=== PATIENT | male | born 1945 | race Asian ===

== ENCOUNTER 2022-04-26 13:05 | Outpatient (REF) | payer OTHER, SELFPAY ==
[2022-04-26 13:39] LABS: Basophils Percent Auto 0.5 % (0-2); Eosinophils Percent Auto 0.5 % (0-4); Hematocrit 43.5 % (42.0-52.0); Hemoglobin 14.7 g/dl (14.0-18.0); Imm Gran Abs Auto 0.02 X10*3/uL (0.00-0.03); Imm Gran Pct Auto 0.2 % (0.0-0.4); Lymphocytes Absolute Auto 0.8 X10*3/uL (1.2-4.9); Lymphocytes Percent Auto 9.9 % (20-40); MANUAL DIFF FLAG NO; Mean Corpuscular HGB Conc 33.8 g/dl (31.0-36.0); Mean Corpuscular Hemoglobin 32.5 pg (27.0-33.0); Mean Corpuscular Volume 96.2 fL (80.0-98.0); Mean Platelet Volume 9.9 fL (9.4-12.4); Monocytes Absolute Auto 0.7 X10*3/uL (0.1-1.2); Monocytes Percent Auto 8.3 % (2-11); Neutrophils Absolute Auto 6.7 x10*3/uL (2.0-8.3); Neutrophils Percent Auto 80.6 % (45-73); Platelet Count 226 X10*3/uL (160-400); Red Blood Count 4.52 X10*6/uL (4.60-5.80); Red Cell Distribution Width 12.2 % (11.0-16.0); White Blood Count 8.4 X10*3/uL (4.8-10.8)
[2022-04-26 14:30] LABS: Alanine Aminotransferase 11 U/L (0-40); Albumin Level 4.3 g/dL (3.5-5.0); Alkaline Phosphatase 61 U/L (39-117); Anion Gap 15 (12-20); Aspartate Amino Transferase 16 U/L (5-37); Bilirubin Total 1.2 mg/dL (0.0-1.0); Blood Urea Nitrogen 16 mg/dL (9-16); Calcium 9.6 mg/dL (8.4-10.2); Carbon Dioxide 24 mmol/L (22-29); Chloride 110 mmol/L (96-108); Cholesterol 181 mg/dL; Estimated Glomerular Filt Rate > 60; Glucose Random 86 mg/dL (60-115); Potassium 4.1 mmol/L (3.3-5.1); Sodium 145 mmol/L (135-145); Total Protein 7.2 g/dL (6.5-8.0)
[2022-04-26 15:08] LABS: Prostate Specific Antigen 6.16 ng/mL (<0.05-4.0)
== END 2022-04-26 13:06 | disposition home or self-care (01) ==
LOC: HO.LAB 13:05
PROVIDERS: PCP Internal Medicine; Visit Provider Internal Medicine
DX: Z12.5 Encounter for screening for malignant neoplasm of prostate (principal); I49.1 Atrial premature depolarization; N40.0 Benign prostatic hyperplasia without lower urinary tract symptoms; R35.1 Nocturia
CPT/HCPCS: 36415; 80053; 82465; 84153; 85025

== ENCOUNTER → 2022-07-31 13:22 | Outpatient (BNVA) | payer OTHER, SELFPAY | PROVIDERS: PCP Internal Medicine; Visit Provider Urology | DX: R97.20 Elevated prostate specific antigen [PSA] (principal); N40.1 Benign prostatic hyperplasia with lower urinary tract symptoms; R39.15 Urgency of urination; R35.1 Nocturia | CPT/HCPCS: 99202 ==

== ENCOUNTER 2022-12-17 13:32 | Day surgery (SDC) | payer OTHER, SELFPAY ==
[2022-12-17 07:14] VITALS: BMI 19.3
[2022-12-17 13:39] VITALS: BP 105/72; PULSE 99; RESP 99; TEMP 36.1; O2SAT 98
--- NOTE | 2022-12-17 13:52 | PC.NURSE ---
no meds taken today
[2022-12-17] MEDS: Lactated Ringers 1,000 ML 50 ML IVCONT (14:04)
--- NOTE | 2022-12-17 14:28 | P.CONAN_ITS ---
FORMERLY [facility] Active Problems Active Problems: All Active Problems (Updated 12/14/22 @ 12:30 by Gladys Addison RN) Elevated PSA (Acute) BPH loc w urin obs/LUTS (Acute) Nocturia associated with benign prostatic hyperplasia (Acute) Urinary urgency (Acute) Past Medical History Medical History (Updated 12/14/22 @ 12:30 by Gladys Addison RN) Enlarged prostate Family History Family history of problems with anesthesia: No Surgical History Surgical History (Updated 12/14/22 @ 12:30 by Gladys Addison RN) H/O colonoscopy History of Problems with Anesthesia: No Social History Social History Patient Tobacco Use Status: Never used Tobacco Advance Directives: No Advance Directives Information Provided: Yes Meds Allergies Allergy/AdvReac Type Severity Reaction Status Date / Time pollen extracts Allergy Unknown Verified 12/14/22 12:32 Active Medications: Current Medications Lactated Ringer's (Lr) 1,000 mls @ 50 mls/hr IVCONT .Q20H HORACIO Last Admin: 12/17/22 14:04 Dose: 50 mls/hr Lactated Ringer's (Lr) 1,000 mls @ 50 mls/hr IVCONT .Q20H HORACIO Sodium Biphosphate/Sodium Phosphate (Sodium Phosphate,Davidson-Dibasic 133 Ml Enema) 133 ml CO ONCE PRN PRN Reason: Poor Colonoscopy Prep Results Exam Exam Date and Time: December 17, 2022 1428 Height,Weight and Vital Signs: Height 5 ft 6 in Weight 54.431 kg Last Vital Signs Temp 97 F 12/17/22 13:39 Pulse 99 12/17/22 13:39 Resp 99 H 12/17/22 13:39 BP 105/72 12/17/22 13:39 Pulse Ox 98 12/17/22 13:39 O2 Del Method Room Air 12/17/22 13:39 Airway Mallampati Class: II (cap front tooth, gums look in [facility]) TM Dist: >3cm Neck ROM: Full Heart: rrr Lungs: cta Assessment and Plan Assessment Anesthesia Assessment: Anesthesia Plan Discussed and Chart Reviewed Final Anesthetic Review Family History of Problems with Anesthesia: No History of Problems with Anesthesia: No NPO: Yes ASA Class: II Final Preanesthetic Review: No Changes in Pt Med Stat, Meds/Allgs Chart Reviewed and Consent Obtained/Reviewed Patient Risk: Intermediate Procedure Risk: Intermediate Anesthetic Plan Anesthetic Plan: MAC: Disposition: Standard PACU
[2022-12-17 16:20] VITALS: BP 91/62; PULSE 85; RESP 14; TEMP 37.1; O2SAT 98
--- NOTE | 2022-12-17 16:20 | P.BOP_ITS ---
Brief Operative Note Date of Service: 12/17/22 Pre-op diagnosis: Screening Post-op diagnosis: other (Colon polyp) Procedure: Colonoscopy to the cecum and TI with hot snare polypectomy x 1 with placement of 2 Resolution clips Surgeon: Carlos Dykes Anesthesia: MAC Was an Ceramics Instructor used for this Procedure?: No Estimated blood loss (mL): 0 Pathology: other (A. Polyp at 30cm) Condition: stable Disposition: PACU
[2022-12-17 16:35] VITALS: BP 103/61; PULSE 76; RESP 18; TEMP 36.9; O2SAT 100
--- NOTE | 2022-12-18 02:00 | OP_ITS ---
DATE OF SERVICE: 12/17/2022 SURGEON: Carlos Dykes MD INDICATIONS: The patient presents for followup of colorectal cancer screening and prior history of colon polyps. Full consent has been obtained from him for this, including risks of bleeding and perforation. PREOPERATIVE DIAGNOSIS: Colorectal cancer screening and personal history of colon polyps. POSTOPERATIVE DIAGNOSIS: Colorectal cancer screening and personal history of colon polyps, colon polyp, diverticulosis and internal hemorrhoids. PROCEDURE PERFORMED: Colonoscopy of the cecum and terminal ileum with hot snare polypectomy and placement of two Resolution clips. ESTIMATED BLOOD LOSS: COMPLICATIONS: ANESTHESIA: Medication Used: Monitored anesthesia care. ASSISTANTS: SPECIMENS: DESCRIPTION OF PROCEDURE: The patient was placed in the left lateral decubitus position. The digital rectal exam revealed no abnormalities. The [employer] video pediatric colonoscope was entered into the rectum and advanced easily to the cecum. Once in the cecum, after copious irrigation and suctioning, I was able to visualize a normal-appearing cecal pouch with appendiceal orifice and a normal-appearing ileocecal valve. The terminal ileum was cannulated and appeared normal. The scope was withdrawn back in the colon. The entire cecum and the ileocecal valve appeared normal. The scope was then slowly withdrawn, assessing all mucosal surfaces carefully. For the most part, preparation was very good, although parts did need a lot of irrigation and suctioning. Ultimately, the preparation became very good, as did the visualization. At 30 cm, there was an approximately 1.5 cm polyp on a short stalk, which was snared with a hot snare and removed. The polyp was withdrawn on the tip of the scope. The scope was readvanced back to the polypectomy site at 30 cm. The polypectomy site appeared to be clean, without any sign of residual polyp nor bleeding, but I did place two Resolution clips on it with good deployment and good hemostasis. I did not visualize any other polyps, colitis nor angiodysplasia. There was a mild amount of sigmoid diverticulosis. In the rectum, scope was retroflexed, visualizing internal hemorrhoids, but no other pathology. The rectal mucosa appeared normal. Scope was straightened and withdrawn from the patient. He tolerated the procedure well and was returned to the recovery area in stable condition. IMPRESSION: 1. Colon polyp. 2. Diverticulosis. 3. Internal hemorrhoids. PLAN: The results of the pathology will be checked. I would recommend a repeat colonoscopy in 3 years for further screening and surveillance. He was advised not to use any aspirin or NSAIDS for 2 weeks. This has been discussed with his significant other. MD ARIANA Galarza/TU / [id number]
== END 2022-12-17 16:44 | disposition home or self-care (01) ==
PROVIDERS: PCP Internal Medicine; Visit Provider Internal Medicine
PROC: 0DJD8ZZ Inspection of Lower Intestinal Tract, Via Natural or Artificial Opening Endoscopic (ICD-10-PCS; CPT 45378; principal; 2022-12-17 14:40)
DX: Z12.11 Encounter for screening for malignant neoplasm of colon (principal); Z86.010 Personal history of colon polyps; D12.5 Benign neoplasm of sigmoid colon; K57.30 Diverticulosis of large intestine without perforation or abscess without bleeding; K64.8 Other hemorrhoids; N40.0 Benign prostatic hyperplasia without lower urinary tract symptoms; Z79.899 Other long term (current) drug therapy; Z91.048 Other nonmedicinal substance allergy status
CPT/HCPCS: 45385; 88305; J2370

== ENCOUNTER 2023-01-31 12:19 | Outpatient (REF) | payer OTHER, SELFPAY ==
[2023-01-31 14:58] LABS: PSA,Total (Free>4and<10) 5.91 ng/mL (0.00-4.00)
[2023-02-01 10:33] LABS: Free Prostate Spec Ag 1.5 ng/mL; Percent Free Prostate Spec Ag 25 % (calc) (>25); Prostate Specific Ag Total 5.9 ng/mL (< OR = 4.0)
== END 2023-01-31 12:20 | disposition home or self-care (01) ==
LOC: HO.LAB 12:19
PROVIDERS: Visit Provider Urology
DX: Z12.5 Encounter for screening for malignant neoplasm of prostate (principal); R97.20 Elevated prostate specific antigen [PSA]
CPT/HCPCS: 36415; 84153; 84154

== ENCOUNTER → 2023-02-06 14:15 | Outpatient (BNVA) | payer OTHER, SELFPAY | PROVIDERS: PCP Internal Medicine; Visit Provider Urology | DX: R97.20 Elevated prostate specific antigen [PSA] (principal); N40.1 Benign prostatic hyperplasia with lower urinary tract symptoms; N13.8 Other obstructive and reflux uropathy; R35.1 Nocturia; R39.12 Poor urinary stream | CPT/HCPCS: 99212 ==

== ENCOUNTER 2023-04-08 12:38 | Outpatient (REF) | payer OTHER, SELFPAY ==
[2023-04-08 13:17] LABS: MANUAL DIFF FLAG NO
[2023-04-08 13:23] LABS: Appearance Urine Clear; Color Urine Yellow; Glucose Urine UA Negative (Negative); Leukocyte Esterase Urine Negative (Negative); Nitrite Urine Negative (Negative); Urine Blood Negative (Negative); Urine Ketones Negative (Negative); Urine Protein Negative (Neg-Trace)
[2023-04-08 13:25] LABS: Basophils Percent Auto 0.5 % (0-2); Eosinophils Absolute Auto 0.1 X10*3/uL (0.0-0.4); Eosinophils Percent Auto 0.8 % (0-4); Hemoglobin 12.9 g/dl (14.0-18.0); Imm Gran Abs Auto 0.01 X10*3/uL (0.00-0.03); Imm Gran Pct Auto 0.2 % (0.0-0.4); Lymphocytes Absolute Auto 0.8 X10*3/uL (1.2-4.9); Lymphocytes Percent Auto 14.2 % (20-40); Mean Corpuscular HGB Conc 32.3 g/dl (31.0-36.0); Mean Corpuscular Hemoglobin 31.5 pg (27.0-33.0); Mean Corpuscular Volume 97.6 fL (80.0-98.0); Mean Platelet Volume 10.9 fL (9.4-12.4); Monocytes Absolute Auto 0.4 X10*3/uL (0.1-1.2); Monocytes Percent Auto 6.7 % (2-11); Neutrophils Absolute Auto 4.6 x10*3/uL (2.0-8.3); Neutrophils Percent Auto 77.6 % (45-73); Platelet Count 224 X10*3/uL (160-400); Red Cell Distribution Width 12.2 % (11.0-16.0); White Blood Count 5.9 X10*3/uL (4.8-10.8)
[2023-04-08 13:53] LABS: Alanine Aminotransferase 11 U/L (0-40); Albumin Level 4.2 g/dL (3.5-5.0); Alkaline Phosphatase 60 U/L (39-117); Amylase 80 U/L (28-100); Anion Gap 15 (12-20); Aspartate Amino Transferase 16 U/L (5-37); Bilirubin Total 0.8 mg/dL (0.0-1.0); Blood Urea Nitrogen 28 mg/dL (9-16); C Reactive Protein < 0.10 mg/dL (< or = 0.50); Calcium 9.9 mg/dL (8.4-10.2); Carbon Dioxide 23 mmol/L (22-29); Chloride 112 mmol/L (96-108); Cholesterol 167 mg/dL; Estimated Glomerular Filt Rate 36; Glucose Random 87 mg/dL (60-115); Potassium 4.7 mmol/L (3.3-5.1); Sodium 145 mmol/L (135-145); Total Protein 7.6 g/dL (6.5-8.0)
[2023-04-08 14:03] LABS: Vitamin B12 450 pg/mL (200-900)
[2023-04-08 14:22] LABS: Erythrocyte Sedimentation Rate 18 MM/HR (0-15)
[2023-04-08 14:55] LABS: Vitamin D 25-OH Total 25.6 ng/mL (>30)
== END 2023-04-08 12:39 | disposition home or self-care (01) ==
LOC: HO.10HDL 12:38
PROVIDERS: Visit Provider Internal Medicine
DX: R10.9 Unspecified abdominal pain (principal); M85.80 Other specified disorders of bone density and structure, unspecified site; N40.0 Benign prostatic hyperplasia without lower urinary tract symptoms; E53.8 Deficiency of other specified B group vitamins; R68.84 Jaw pain
CPT/HCPCS: 36415; 80053; 81003; 82150; 82306; 82465; 82607; 85025; 85652; 86140

== ENCOUNTER 2023-04-12 13:19 | Outpatient (REF) | payer OTHER, SELFPAY ==
--- NOTE | ~2023-04-12 | MM_ITS ---
EXAMINATION: BONE DENSITOMETRY CLINICAL INDICATION: Screening. COMPARISON: This is the patient's baseline examination. TECHNIQUE: Using a Nightpro DXA System (software version: 13.1) manufactured by [employer], dual-energy x-ray absorptiometry was performed of the lumbar spine and left hip. The images are of good technical quality. Summary results are attached. FINDINGS: AP SPINE L1-L4: BMD 1.164 g/cm2, Z-score 0.4, T-score -0.5, normal. LEFT FEMUR, NECK: BMD 0.931 g/cm2, Z-score 0.5, T-score -1.1, osteopenia. LEFT FEMUR, TOTAL: BMD 1.068 g/cm2, Z-score 0.8, T-score -0.2, normal. IDENTIFIED RISK FACTORS: Low calcium intake. HISTORY OF FRACTURE: None listed. MEDICATIONS: None listed. MM/XR DEXA axial skeleton IMPRESSION: 1. DIAGNOSIS: Osteopenia based on the lowest T-score value of -1.1 in the femoral neck applying World Health Organization criteria. 2. 10-YEAR FRACTURE RISK PREDICTION, FRAX: Major osteoporotic fracture (clinical spine, forearm, hip or shoulder) 3.5%. Hip fracture 0.9%. 3. Treatment Recommendations: NOF guidelines recommend consideration for treatment in postmenopausal women and men age 50 and older presenting with the following: -A hip or vertebral (clinical or morphometric) fracture. -T-score less than or equal to -2.5 at the femoral neck or spine after appropriate evaluation to exclude secondary causes. -Low bone mass at the hip or spine and a 10-year fracture probability by FRAX of greater than or equal to 3% for hip fracture or greater than or equal to 20% for major osteoporotic fracture based on the [place] adapted WHO algorithm. 4. Other Recommendations: All treatment decisions require clinical judgment and consideration of individual patient factors, including patient preferences, comorbidities, previous drug use, risk factors not captured in the FRAX model (e.g. frailty, falls, vitamin D deficiency, increased bone turnover, interval significant decline in bone density) and possible under or overestimation of fracture risk by FRAX. Additional medical evaluation for secondary cause of low bone mineral density may be appropriate. FUTURE SCAN RECOMMENDATION: People with diagnosed cases of osteoporosis or at high risk for fracture should have regular bone mineral density tests. For patients eligible for Medicare, routine testing is allowed once every 2 years. The testing frequency can be increased to one year for patients who have rapidly progressing disease, those who are receiving or discontinuing medical therapy to restore bone mass, or have additional risk factors.
== END 2023-04-12 13:20 | disposition home or self-care (01) ==
LOC: HO.MAMMO 13:19
PROVIDERS: Visit Provider Internal Medicine
DX: Z13.820 Encounter for screening for osteoporosis (principal); M85.852 Other specified disorders of bone density and structure, left thigh
CPT/HCPCS: 77080

== ENCOUNTER 2023-04-26 14:26 | Outpatient (REF) | payer OTHER, SELFPAY ==
--- NOTE | ~2023-04-26 | CT_ITS ---
EXAMINATION: CT ABDOMEN AND PELVIS WITHOUT CONTRAST CLINICAL INFORMATION: Right lower quadrant abdominal pain. COMPARISON: None available. TECHNIQUE: Multidetector volumetric imaging was performed from the superior aspect of the liver through the pubic symphysis. Sagittal and coronal reformatted images were obtained on the technologist's workstation. This CT examination was performed using dose optimization techniques as appropriate, variously including the following: *Automated exposure control *Adjustment of mA and/or kV according to patient size (this includes techniques or standardized protocols for targeted exams where dose is matched to indication/reason for exam; i.e. extremities or head) *Use of iterative reconstruction technique. DLP: 229 mGy-cm FINDINGS: LUNG BASES: The visualized lung bases are unremarkable. Linear scarring is present at the left lung base. No nodules, consolidations or pleural effusions. LIVER, GALLBLADDER, AND BILIARY TREE: The liver is normal in size, shape, and attenuation. No focal hepatic lesion or biliary ductal dilatation is present. The gallbladder is unremarkable with no evidence of radiopaque gallstones, gallbladder wall thickening, or obvious pericholecystic inflammatory changes. PANCREAS: Unremarkable. SPLEEN: Unremarkable. ADRENAL GLANDS: Unremarkable. KIDNEYS AND URETERS: There is bilateral hydronephrosis seen. Proximal ureters are dilated but the distal ureters are not well seen. There is a complex cyst present at the upper pole of the left kidney measuring just under 6 cm in size. There is some irregular calcification associated with this along with one area of slight increased density. I would classify this as Bosniak class IIF. No other renal masses. There is some subtle punctate hyperattenuating areas seen in the kidneys bilaterally in the medullary regions which may represent calculi (for example, in the right kidney 5:54). BLADDER: The bladder wall is mildly thickened and trabeculated with some tiny diverticula. GASTROINTESTINAL TRACT: The small and large bowel are unremarkable. The appendix is unremarkable. ABDOMINAL WALL: No significant hernia is appreciated. LYMPH NODES: Normal. VASCULAR: Unremarkable. PELVIC VISCERA: There is marked prostatomegaly with the prostate measuring 6.5 x 5.7 x 5.9 cm for a volume of about 115 mL. Seminal vesicles appear normal. OSSEOUS STRUCTURES: Unremarkable. CT/CT abdomen pelvis wo IV con IMPRESSION: 1. Marked prostatomegaly with bladder wall thickening and trabeculated bladder suggesting bladder outlet obstruction. 2. There is bilateral hydronephrosis. The distal ureters are not well seen. Complex Bosniak class IIF left upper pole renal cyst. Would recommend a dedicated pre and postcontrast renal CT for further evaluation. In addition, I would get delayed postcontrast imaging for opacification of the renal collecting system. 3. Possible punctate bilateral renal calculi. 4. Normal appendix. Fleischner guidelines were followed.
== END 2023-04-26 14:27 | disposition home or self-care (01) ==
LOC: HO.CT 14:26
PROVIDERS: PCP Internal Medicine; Visit Provider Internal Medicine
DX: R10.31 Right lower quadrant pain (principal)
CPT/HCPCS: 74176

== ENCOUNTER 2023-04-26 15:05 | Emergency (ER) | payer OTHER, SELFPAY ==
--- NOTE | ~2023-04-26 | CT_ITS ---
EXAMINATION: CT SOFT TISSUE NECK WITHOUT CONTRAST CLINICAL INFORMATION: Dysphagia COMPARISON: None. TECHNIQUE: Noncontrast helical imaging was performed in the axial plane with generation of coronal and sagittal reformatted images. This CT examination was performed using dose optimization techniques as appropriate, variously including the following: *Automated exposure control. *Adjustment of mA and/or kV according to patient size (this includes techniques or standardized protocols for targeted exams where dose is matched to indication/reason for exam; i.e. extremities or head). *Use of iterative reconstruction technique. DLP: 319 mGycm FINDINGS: The fat planes of the skull base and soft tissues of the nasopharynx are unremarkable. Mild ethmoid air cell mucosal thickening. No mastoid effusion. The temporomandibular joints are normal. Carious posterior right mandibular molar with significant periodontal disease and osseous resorption of the surrounding maxillary alveolus. Attritional changes of the bilateral maxillary alveolar ridge related to multiple missing teeth. Calcified right palatine tonsilloliths. Dental streak artifact obscures assessment of portions of the oral cavity and oropharynx, particularly the palatine tonsillar fossa, without gross abnormality. Query slight edema and soft tissue thickening of the aryepiglottic folds/posterior hypopharyngeal wall. The larynx is unremarkable. No radiopaque foreign bodies identified. The thyroid gland is somewhat diminutive in appearance. The enhanced bilateral parotid and submandibular glands are normal. No pathologic size criteria or morphologically suspicious cervical chain lymph nodes. The partially visualized lung apices are clear. Mild atherosclerotic calcific plaque along the aortic arch and minimally at the carotid bifurcations. Slight anterolisthesis at C2-C3 and slight retrolisthesis at C3-C4 and C4-C5. Moderate to severe discogenic disease from C3 to C7 with multilevel cervical spondylosis and apparent moderate to severe spinal canal stenosis at C3-C4, C4-C5 and C5-C6 with possible mass effect on the cord and multilevel severe neural foraminal narrowing. Expansion with cortical thickening and intramedullary sclerosis of the posterior arch of C1 extending into the left C1 lateral mass, favored to reflect Paget's disease. Partially imaged mild generalized parenchymal volume loss. CT/CT soft tissue neck wo IV con IMPRESSION: 1. Query slight edema and soft tissue thickening of the aryepiglottic folds/posterior hypopharyngeal wall, which may be inflammatory and can be seen in the setting of gastroesophageal reflux disease; correlate clinically. Otherwise the unenhanced digestive tract is grossly unremarkable, accounting for dental streak artifact obscuring portions of the oral cavity and oropharynx. No radiopaque foreign body. 2. Cervical spondylosis and apparent moderate to severe spinal canal stenosis at C3-C4, C4-C5 and C5-C6 with possible mass effect on the cord and multilevel severe neural foraminal narrowing. If there is referrable myelopathy/radiculopathy, further evaluation of these findings with dedicated cervical spine MRI may be performed as clinically warranted. 3. Expansion with cortical thickening and intramedullary sclerosis of the posterior arch of C1 extending into the left C1 lateral mass, favored to reflect Paget's disease. 4. Carious posterior right mandibular molar with significant periodontal disease and osseous resorption of the surrounding maxillary alveolus.
[2023-04-26 15:11] VITALS: BP 146/111; PULSE 76; RESP 18; TEMP 36.7; O2SAT 98; BMI 16.8
--- NOTE | 2023-04-26 15:11 | ED.GENADULT ---
HPI - General Adult General Chief complaint: General Medical Stated complaint: hard swallowing Time Seen by Provider: 04/26/23 21:19 Source: patient and family Mode of arrival: ambulatory Limitations: no limitations History of Present Illness HPI narrative: Patient with history of BPH negative for cancer been complaining of dry mouth and poor days with poor appetite for last 2 months, had colonoscopy on 12/13 which was negative lost about 6 lb in 2 months patient just does not feel hungry, keep looking at the food but does not feel hungry to eat Related Data Previous Rx's Medication Instructions Recorded doxazosin 4 mg tablet 4 mg PO BEDTIME 90 days #90 tabs 07/31/22 finasteride 5 mg tablet 5 mg PO DAILY 90 days #90 tabs 07/31/22 pantoprazole 40 mg tablet,delayed 40 mg PO DAILY #30 tabs 04/27/23 release (Protonix) sucralfate 1 gram tablet 1 g PO TID #90 tabs 04/27/23 Allergies Allergy/AdvReac Type Severity Reaction Status Date / Time pollen extracts Allergy Unknown Verified 02/06/23 14:35 Review of Systems Review of Systems: Yes all other systems are reviewed and are negative [facility] Past Medical History Medical History Enlarged prostate Surgical History H/O colonoscopy Social History Social History Patient Tobacco Use Status: Never used Tobacco Smoked in Last 30 Days: No Use of substances other than those prescribed or required for medical reasons: No Advance Directives: No Advance Directives Information Provided: No Physical Exam ED Vital Signs: Vital Signs - 24 hr 04/26/23 15:11 04/26/23 22:44 Temperature 98.1 F 98.4 F Pulse Rate 76 65 Respiratory Rate 18 10 L Blood Pressure 146/111 H 156/86 H Pulse Oximetry 98 98 Oxygen Delivery Method Room Air Room Air BMI result Body Mass Index 16.8 Appearance: Alert. Oriented X3. No acute distress. Eyes: PERRLA, No Nystagmus ENT: Pharynx normal. Oral Mucosa dry Neck: Normal inspection. Neck supple. CVS: Normal heart rate and rhythm. Pulses normal. Respiratory: No respiratory distress. Equal air entry bilateral, no wheezing/rales/rhonchi Abdomen: Soft and nontender. Bowel sounds are present, no mass palpable, no CVA tenderness Skin: Skin warm and dry. Normal skin color. Normal skin turgor. Extremities: No lower extremity edema. No calf tenderness Neuro: Oriented X 3. No motor deficit. No sensory deficit.No cerebellar signs , cranial nerves II-XII intact Course Course Course Narrative: This is a rapid medical exam: Additional HPI, ROS, PE not included below will be deferred to primary provider. Patient is a 77-year-old male presenting to the emergency department with complaint of difficulty swallowing, pain in oropharynx, bitter taste. Saw Dr. Wylie in March for same, just had scheduled abdominal/pelvis CT scan today but does not have the results. Has lost 8lbs in less than one month. Plan: labs Medications Administered Discontinued Medications Generic Name Dose Route Start Last Admin Trade Name Freq PRN Reason Stop Dose Admin Famotidine 20 mg 04/26/23 23:33 04/26/23 23:50 Famotidine/Pf 20 Mg/2 Ml Vial IVPUSH 04/26/23 23:34 20 mg ONCE ONE Administration Sodium Chloride 1,000 mls @ 999 mls/hr 04/26/23 21:33 04/26/23 23:43 Ns IV 04/26/23 22:33 Infused .Q1H1M ONE Infusion Sodium Chloride 1,000 mls @ 999 mls/hr 04/26/23 23:36 04/27/23 00:59 Sodium Chloride 0.45 % IVCONT 04/27/23 00:36 Infused .Q1H1M ONE Infusion Medical Decision Making Medical Decision Making [facility] Narrative: Patient dry mouth with acid reflux CT scan of neck was which showed nonspecific inflammation around CT was done earlier which was also nonspecific labs are stable except hypernatremia patient received 2 L of fluids discharge patient home on Protonix and sucralfate for acid reflux likely the cause for soreness in the mouth Lab Data [facility] Lab Attestation statement: I reviewed the patient's lab results. 04/26/23 15:34 04/26/23 15:34 Labs: Lab Results 04/26/23 04/26/23 Range/Units 15:34 15:34 WBC 7.1 (4.8-10.8) X10*3/uL RBC 3.87 L (4.60-5.80) X10*6/uL Hgb 12.2 L (14.0-18.0) g/dl Hct 37.8 L (42.0-52.0) % MCV 97.7 (80.0-98.0) fL MCH 31.5 (27.0-33.0) pg MCHC 32.3 (31.0-36.0) g/dl RDW 12.7 (11.0-16.0) % Plt Count 232 (160-400) X10*3/uL MPV 10.3 (9.4-12.4) fL Immature Gran % (Auto) 0.3 (0.0-0.4) % Neut % (Auto) 83.7 H (45-73) % Lymph % (Auto) 9.5 L (20-40) % Motley % (Auto) 5.8 (2-11) % Eos % (Auto) 0.3 (0-4) % Baso % (Auto) 0.4 (0-2) % Lymph # (Auto) 0.7 L (1.2-4.9) X10*3/uL Motley # (Auto) 0.4 (0.1-1.2) X10*3/uL Eos # (Auto) 0.0 (0.0-0.4) X10*3/uL Baso # (Auto) 0.0 (0.0-0.2) X10*3/uL Abs Immat Gran (auto) 0.02 (0.00-0.03) X10*3/uL Absolute Neuts (auto) 5.9 (2.0-8.3) x10*3/uL Absolute Nucleated RBC 0.000 (0.0-0.012) X10*3/uL Nucleated RBC % (auto) 0.0 (0.0-0.2) /100WBC Sodium 150 H (135-145) mmol/L Potassium 4.7 (3.3-5.1) mmol/L Chloride 116 H (96-108) mmol/L Carbon Dioxide 22 (22-29) mmol/L Anion Gap 17 (12-20) BUN 45 H (9-16) mg/dL Creatinine 2.10 H (0.5-1.4) mg/dL Estim Creat Clear Calc 20.6 Estimated GFR 31 Random Glucose 95 (60-115) mg/dL Calcium 9.8 (8.4-10.2) mg/dL Total Bilirubin 0.4 (0.0-1.0) mg/dL AST 14 (5-37) U/L ALT 13 (0-40) U/L Alkaline Phosphatase 56 (39-117) U/L Total Protein 7.7 (6.5-8.0) g/dL Albumin 4.2 (3.5-5.0) g/dL Discharge Plan Discharge Clinical Impression: Chronic GERD Patient Disposition: Home, Self-Care Instructions: Gastroesophageal Reflux Disease (ED) Additional Instructions: Continue taking medication Take Protonix 40 mg daily Sucralfate 1 g 1 tablet 3 times a day half an hour before meals Follow-up with PCP Drink plenty of fluids Prescriptions: New pantoprazole [Protonix] 40 mg tablet,delayed release (DR/EC) 40 mg PO DAILY Qty: 30 0RF sucralfate 1 gram tablet 1 g PO TID Qty: 90 0RF No Action doxazosin 4 mg tablet 4 mg PO BEDTIME 90 Days Qty: 90 1RF finasteride 5 mg tablet 5 mg PO DAILY 90 Days Qty: 90 1RF Interventions: ED Discharge Assessment Last Done: 04/27/23 01:01 Discharge Date/Time: 04/27/23 01:02
[2023-04-26 15:39] LABS: MANUAL DIFF FLAG NO
[2023-04-26 15:48] LABS: Basophils Percent Auto 0.4 % (0-2); Eosinophils Percent Auto 0.3 % (0-4); Hematocrit 37.8 % (42.0-52.0); Hemoglobin 12.2 g/dl (14.0-18.0); Imm Gran Abs Auto 0.02 X10*3/uL (0.00-0.03); Imm Gran Pct Auto 0.3 % (0.0-0.4); Lymphocytes Absolute Auto 0.7 X10*3/uL (1.2-4.9); Lymphocytes Percent Auto 9.5 % (20-40); Mean Corpuscular HGB Conc 32.3 g/dl (31.0-36.0); Mean Corpuscular Hemoglobin 31.5 pg (27.0-33.0); Mean Corpuscular Volume 97.7 fL (80.0-98.0); Mean Platelet Volume 10.3 fL (9.4-12.4); Monocytes Absolute Auto 0.4 X10*3/uL (0.1-1.2); Monocytes Percent Auto 5.8 % (2-11); Neutrophils Absolute Auto 5.9 x10*3/uL (2.0-8.3); Neutrophils Percent Auto 83.7 % (45-73); Platelet Count 232 X10*3/uL (160-400); Red Blood Count 3.87 X10*6/uL (4.60-5.80); Red Cell Distribution Width 12.7 % (11.0-16.0); White Blood Count 7.1 X10*3/uL (4.8-10.8)
[2023-04-26 16:14] LABS: Alanine Aminotransferase 13 U/L (0-40); Albumin Level 4.2 g/dL (3.5-5.0); Alkaline Phosphatase 56 U/L (39-117); Anion Gap 17 (12-20); Aspartate Amino Transferase 14 U/L (5-37); Bilirubin Total 0.4 mg/dL (0.0-1.0); Blood Urea Nitrogen 45 mg/dL (9-16); Calcium 9.8 mg/dL (8.4-10.2); Carbon Dioxide 22 mmol/L (22-29); Chloride 116 mmol/L (96-108); Creatinine Clr Calc Pharmacy 20.6; Estimated Glomerular Filt Rate 31; Glucose Random 95 mg/dL (60-115); Potassium 4.7 mmol/L (3.3-5.1); Sodium 150 mmol/L (135-145); Total Protein 7.7 g/dL (6.5-8.0)
[2023-04-26] MEDS: 0.9 % Sodium Chloride 1,000 ML 999 ML IV (21:57)
--- NOTE | 2023-04-26 21:59 | PC.NURSE ---
pt a&o, no sob or chest pain, pt place on bedside monitor. Iv place and medicated per Nov. Notified BHARATHI Reagan
[2023-04-26 22:44] VITALS: BP 156/86; PULSE 65; RESP 10; TEMP 36.9; O2SAT 98
[2023-04-26] MEDS: Sodium Chloride 0.45 % 1,000 ML 999 ML IVCONT (23:50)
[2023-04-26] MEDS: Famotidine/PF 20 MG/2 ML VIAL IVPUSH (23:50)
--- NOTE | 2023-04-26 23:52 | PC.NURSE ---
Medicated per Nov, notified BHARATHI Bazzi
[2023-04-27 01:00] VITALS: BP 146/89; PULSE 62; RESP 16; TEMP 36.7; O2SAT 99
== END 2023-04-27 01:02 | disposition home or self-care (01) ==
PROVIDERS: Registered Nurse Emergency; Emergency Provider Internal Medicine; PCP Internal Medicine
DX: K21.9 Gastro-esophageal reflux disease without esophagitis (principal); E87.0 Hyperosmolality and hypernatremia; R68.2 Dry mouth, unspecified; Z79.899 Other long term (current) drug therapy
CPT/HCPCS: 36415; 70490; 80053; 85025; 96361; 96374; 99284

== ENCOUNTER 2023-06-11 13:03 | Outpatient (AMB) | payer OTHER, SELFPAY ==
--- NOTE | 2023-06-11 13:05 | A.OFFVIS_ITS ---
Intake Intake Visit Reasons: Cystoscopy? Intake Note: Patient is present for Cystoscopy Urology Med: Doxazosin, Finasteride Antibiotic Allergy: None Blood Thinner: None Pharmacy: [facility] Cystoscope used during Procedure LOT#:[id number] EXP: 02/03/2025 Allergies pollen extracts Allergy (Verified 06/11/23 13:18) Unknown Medication List - Last Reconciled 06/11/23 by Fernando Haskins MD doxazosin 4 mg PO BEDTIME 90 days finasteride 5 mg PO DAILY 90 days pantoprazole (Protonix) 40 mg PO DAILY sucralfate 1 g PO TID HPI HPI Comments History of Present Illness Details Juan David is a very present [place] male. He is a patient Dr. Santamaria. He is seen for the following urologic conditions - elevated PSA - lower urinary tract symptoms Here for cystoscopy ASHA large prostate CT scan with thickened bladder wall, 120 cc prostate, bilateral hydro secondary to incomplete bladder emptying Findings confirmed cystoscopy Recommend prostate procedure with bilateral retrogrades Accompanied by Also reports GI upset GI referral made for H pylori investigation Elevated PSA and lower urinary tract symptoms Longstanding elevated PSA Prior PSA 2018 6.4, 07/14 6.2, 02/11 5.9 25% Prior evaluation with Urology in recommendation for prostate biopsy Has concurrent lower urinary tract symptoms Urinary urgency with nocturia Weak stream ASHA 3+ prostate Proposed trial of combination therapy doxazosin with finasteride Will both lower PSA and address urinary symptoms PFSH Medical History Enlarged prostate Surgical History H/O colonoscopy Social History Patient Tobacco Use Status: Never used Tobacco Review of Systems Const Denies chills and Denies fever(s) Card Reports no additional complaints and Denies syncope Resp Denies cough GI Denies abdominal pain and Denies heartburn Reports as per HPI and Denies change in libido Neuro Denies syncope Psych Denies change in libido Endo Denies change in libido Physical Exam Const General: cooperative, healthy appearing, comfortable and no acute distress Orientation/consciousness: patient oriented x3 HEENT Face and sinus: Yes normal facial exam Mouth: moist mucous membranes Neck Neck: Yes normal visual inspection, Yes full ROM and Yes trachea midline Chest Chest palpation & inspection: normal inspection of the chest Resp Effort & Inspection: normal respiratory effort, able to speak in complete sentences and no respiratory distress GI Inspection: Yes normal to inspection Back/Spine/Pelvis Cervical Spine: normal cervical lordosis Thoracic/Lumbar Spine: thoracic and lumbar spine normal to inspection Skin General skin exam: no rashes or lesions noted Neuro General: patient oriented x3, gait normal, tone normal and moves all extremities Extrem General: Yes normal to inspection and Yes capillary refill normal Office Procedures Cystoscopy Consent Discussed risk and benefit or proposed procedure with the patient. Information consent for procedure given to the patient. Discussed technical aspects, risks, benefits and alternatives in full. Addressed all of the patient's questions and concerns regarding the procedure. The patient demonstrated knowledge and understanding. They wish to proceed with this procedure. Preparation The patient was prepped in the usual manner. A quality system manager was present and in the room. Genitalia was prepped with betadine solution in a sterile manner. Lidocaine Jelly 2% was placed into the urethra and 16Fr flexible Olympus cystoscope was inserted into the meatus after adequate lubrication. Procedure Meatus circumcised Urethra anterior posterior urethra Prostatic Urethra trilobar hypertrophy Bladder examination with retroflexion of cystoscope Bladder Orifices normal shape and position Bladder Capacity dilated Trabeculations grade 2/3 Cellule Formation yes Diverticulum Formation small superior Mucosal Erythema Bladder Tumor [id number] DISPOSABLE SCOPE URO-G FLEXIBLE SCOPE Procedure code (CPT) selection complete Office Meds lidocaine HCl 2 % mucosal jelly in applicator Performing Provider: Fernando Haskins MD [place] [facility] [place] [facility] Administered by: Barbie Rivera RN on 06/11/23 13:34 Dose Route Admin Location Dispensed Lot Number Expiration Date [facility] Product Support Sales Representative 10 mL intra-urethral 10 mL nitrofurantoin monohydrate/macrocrystals 100 mg capsule Performing Provider: Fernando Haskins MD [place] [facility] [facility] Administered by: Barbie Rivera RN on 06/11/23 13:34 Dose Route Admin Location Dispensed Lot Number Expiration Date [facility] Product Support Sales Representative 100 mg PO 1 cap naproxen 500 mg tablet Performing Provider: Fernando Haskins MD [place] [facility] [facility] Administered by: Barbie Rivera RN on 06/11/23 13:34 Dose Route Admin Location Dispensed Lot Number Expiration Date [facility] Product Support Sales Representative 500 mg PO 1 tab Results AMB Urinalysis, Automated UA Leukoctes 0 Robyn/uL Last Edit by Zoe Baldwin, [facility] on 06/11/23 13:30 UA Nitrite Negative Last Edit by Zoe Baldwin, A on 06/11/23 13:30 UA Urobilinogen 0.2 mg/dL Last Edit by Zoe Baldwin, A on 06/11/23 13:3 0 UA Protein 0 mg/dL Last Edit by Zoe Baldwin, A on 06/11/23 13:30 UA pH 5.5 Last Edit by Zoe Baldwin, A on 06/11/23 13:30 UA Blood 0 Rafael/uL Last Edit by Zoe Baldwin, A on 06/11/23 13:30 UA Specific [place] 1.010 Last Edit by Zoe Baldwin, A on 06/11/23 13: 30 UA Ketone Negative Last Edit by Zoe Baldwin, A on 06/11/23 13:30 UA Bilirubin 0 mg/dL Last Edit by Zoe Baldwin, A on 06/11/23 13:30 UA Glucose 0 mg/dL Last Edit by Zoe Baldwin, [facility] on 06/11/23 13:30 Results Reviewed Results Reviewed: Laboratory Last Values Urine pH (Auto) 5.5 06/11/23 13:19 Specific [place] (Auto) 1.010 06/11/23 13:19 Urine Protein (Auto) 0 mg/dL 06/11/23 13:19 Glucose (UA)(Auto) 0 mg/dL 06/11/23 13:19 Urine Ketones (Auto) Negative 06/11/23 13:19 Urine Blood (Auto) 0 Rafael/uL 06/11/23 13:19 Urine Nitrite (Auto) Negative 06/11/23 13:19 Urine Bilirubin (Auto) 0 mg/dL 06/11/23 13:19 Urine Urobilinogen (Auto) 0.2 mg/dL 06/11/23 13:19 Leukocyte Esterase (Auto) 0 Robyn/uL 06/11/23 13:19 Assessment & Plan Assessment & Plan (1) Reflux esophagitis: Code(s): K21.00 - Gastro-esophageal reflux disease with esophagitis, without bleeding Qualifiers: Esophagitis bleeding: without hemorrhage Qualified Code(s): K21.00 - Gastro-esophageal reflux disease with esophagitis, without bleeding (2) Nocturia associated with benign prostatic hyperplasia: Code(s): N40.1 - Benign prostatic hyperplasia with lower urinary tract symptoms; R35.1 - Nocturia (3) BPH loc w urin obs/LUTS: Code(s): N40.1 - Benign prostatic hyperplasia with lower urinary tract symptoms Plan We discussed the nature of the decision and reasonable options for performing a prostate intervention. Interventions include TURP, GreenLight laser enucleation of the prostate, GreenLight laser ablation of the prostate, transurethral incision of the prostate, and I-Tend prostate procedure. Options such as medical therapy were discussed. The relative uncertainties and benefits related to each alternate procedure were adequately discussed. General surgical risks including, but not limited to, pain, bleeding, infection, myocardial infarction, pulmonary embolus, deep vein thrombosis and cerebrovascular accident which may result in further hospitalization were discussed. Full disclosure of the procedure as well as all major risks, benefits and complications were discussed including but not limited to damage to the urethra or bladder neck, recurrent BPH, retrograde ejaculation, bladder infection, urge, de anabel frequency, incomplete emptying, dysuria, remote chance of erectile dysfunction, epididymitis, and meatal stenosis. The success rate of the procedure was discussed. Success of the procedure in the short-term does not necessarily guarantee that long-term success will be maintained. Suitable follow up will need to be maintained. The patient showed understanding of discussion. An opportunity was provided for questions to be answered and wishes to proceed with the following procedure. - GreenLight laser prostatectomy, bilateral retrograde Orders: Orders AMB Cystoscopy 06/11/23 N40.1 - Benign prostatic hyperplasia with lower urinary tract symptoms AMB Urinalysis Automated 06/11/23 Z13.9 - Encounter for screening, unspecified Referrals Gastroenterology Referral K21.00 - Gastro-esophageal reflux disease with esophagitis, without bleeding Patient Instructions: Imaging studies, laboratory and physical exam results were discussed and reviewed in detail. No major barriers to patient understanding were identified. An opportunity to ask questions regarding the treatment plan was provided. All questions were answered. The patient expressed understanding and agreement with the above treatment plan. The patient is aware they should contact our office by phone for worsening of their current condition or the appearance of new urologic symptoms. Compliance is encouraged with any medications and followup testing that is ordered. It is a privilege to participate in the urologic care of your patient. If you have any questions or concerns regarding treatment for the above conditions, or other urologic issues, please do not hesitate to contact me. The office telephone contact is [phone]. This note is constructed using voice recognition software. While every effort has been made to ensure accuracy remote sensing specialist errors may have been included. Yours sincerely, Dr Fernando Haskins MD, [facility] - Urology Providers of Expert, Compassionate Care for the Genitourinary System Coding Level of Care Code Est Pt Level 4 (46225) Diagnoses Gastroesophageal reflux disease with esophagitis without hemorrhage K21.00 Esophagitis bleeding: without hemorrhage Nocturia associated with benign prostatic hyperplasia N40.1; R35.1 BPH loc w urin obs/LUTS N40.1 CPT Codes Cystoscopy - CPT: [id number] ([id number])
== END 2023-06-11 14:12 | disposition home or self-care (01) ==
PROVIDERS: PCP Internal Medicine; Visit Provider Urology
DX: K21.00 Gastro-esophageal reflux disease with esophagitis, without bleeding (principal); N40.1 Benign prostatic hyperplasia with lower urinary tract symptoms; R35.1 Nocturia
CPT/HCPCS: 52000; 99214

== ENCOUNTER → 2023-06-11 13:03 | Outpatient (BNVA) | payer OTHER, SELFPAY | PROVIDERS: Visit Provider Urology | DX: N40.1 Benign prostatic hyperplasia with lower urinary tract symptoms (principal); N13.8 Other obstructive and reflux uropathy; R97.20 Elevated prostate specific antigen [PSA]; R39.15 Urgency of urination; R35.1 Nocturia; K21.00 Gastro-esophageal reflux disease with esophagitis, without bleeding | CPT/HCPCS: 52000; 81003; 99212 ==

== ENCOUNTER 2023-08-12 14:01 | Outpatient (REF) | payer OTHER, SELFPAY ==
--- NOTE | ~2023-08-12 | US_ITS ---
EXAMINATION: US PELVIS LIMITED (BLADDER) CLINICAL INFORMATION: Poor urinary stream. COMPARISON: CT abdomen and pelvis 04/26/2023. TECHNIQUE: Real-time imaging of the bladder. FINDINGS: BLADDER: Well distended and normal. Bilateral ureteral jets are not demonstrated. Prevoid bladder volume is 316 mL. Postvoid bladder volume is 254 mL. Multiple bladder wall trabeculations are noted. ADDITIONAL FINDINGS: Prostate dimensions are 7.2 x 5.2 x 5.7 cm (volume 111.0 mL). US/US bladder IMPRESSION: 1. There is marked prostatomegaly. 2. There is bladder wall hypertrophy, and an increased postvoid residual volume is seen.
== END 2023-08-12 14:02 | disposition home or self-care (01) ==
LOC: HO.US 14:01
PROVIDERS: PCP Internal Medicine; Visit Provider Urology
DX: R39.12 Poor urinary stream (principal); N40.1 Benign prostatic hyperplasia with lower urinary tract symptoms; R35.1 Nocturia
CPT/HCPCS: 76857

== ENCOUNTER 2023-08-21 15:32 | Outpatient (REF) | payer OTHER, SELFPAY ==
[2023-08-21 15:47] LABS: MANUAL DIFF FLAG NO
[2023-08-21 17:38] LABS: Basophils Percent Auto 0.5 % (0-2); Eosinophils Percent Auto 0.4 % (0-4); Hemoglobin 11.4 g/dl (14.0-18.0); Imm Gran Abs Auto 0.03 X10*3/uL (0.00-0.03); Imm Gran Pct Auto 0.4 % (0.0-0.4); Lymphocytes Absolute Auto 0.9 X10*3/uL (1.2-4.9); Lymphocytes Percent Auto 11.3 % (20-40); Mean Corpuscular HGB Conc 30.8 g/dl (31.0-36.0); Mean Corpuscular Hemoglobin 31.4 pg (27.0-33.0); Mean Corpuscular Volume 101.9 fL (80.0-98.0); Mean Platelet Volume 10.8 fL (9.4-12.4); Monocytes Absolute Auto 0.5 X10*3/uL (0.1-1.2); Monocytes Percent Auto 5.5 % (2-11); Neutrophils Absolute Auto 6.9 x10*3/uL (2.0-8.3); Neutrophils Percent Auto 81.9 % (45-73); Platelet Count 240 X10*3/uL (160-400); Red Blood Count 3.63 X10*6/uL (4.60-5.80); White Blood Count 8.4 X10*3/uL (4.8-10.8)
[2023-08-21 17:47] LABS: Alanine Aminotransferase 13 U/L (0-40); Albumin Level 4.5 g/dL (3.5-5.0); Alkaline Phosphatase 65 U/L (39-117); Anion Gap 14 (12-20); Aspartate Amino Transferase 18 U/L (5-37); Bilirubin Total 0.3 mg/dL (0.0-1.0); Blood Urea Nitrogen 49 mg/dL (9-16); Calcium 9.8 mg/dL (8.4-10.2); Carbon Dioxide 28 mmol/L (22-29); Chloride 110 mmol/L (96-108); Estimated Glomerular Filt Rate 20; Glucose Random 88 mg/dL (60-115); Iron 64 mcg/dL (45-160); Percent Iron Saturation 26 % (15-50); Potassium 3.9 mmol/L (3.3-5.1); Sodium 148 mmol/L (135-145); Total Iron Binding Capacity 242 mcg/dL (228-428); Total Protein 8.3 g/dL (6.5-8.0); Unsaturated Iron Binding 178 ug/dL
[2023-08-21 18:16] LABS: Vitamin B12 623 pg/mL (200-900)
== END 2023-08-21 15:33 | disposition home or self-care (01) ==
LOC: HO.LAB 15:32
PROVIDERS: PCP Internal Medicine; Visit Provider Internal Medicine
DX: D64.9 Anemia, unspecified (principal); N18.9 Chronic kidney disease, unspecified; N40.0 Benign prostatic hyperplasia without lower urinary tract symptoms
CPT/HCPCS: 36415; 80053; 82607; 83540; 85025

== ENCOUNTER 2023-11-19 14:21 | Outpatient (AMB) | payer OTHER, SELFPAY ==
--- NOTE | 2023-11-19 15:09 | A.OFFVIS_ITS ---
Intake Intake Visit Reasons: BHP F/U Intake Note: Patient is present for Discuss Kidney Issuses Allergies pollen extracts Allergy (Verified 06/11/23 13:18) Unknown Medication List - Last Reconciled 11/19/23 by Fernando Haskins MD doxazosin 4 mg PO BEDTIME 90 days finasteride 5 mg PO DAILY 90 days pantoprazole (Protonix) 40 mg PO DAILY sucralfate 1 g PO TID HPI HPI Comments History of Present Illness Details Juan David is a very present Yor[place] male. He is a patient Dr. Santamaria. He is seen for the following urologic conditions - elevated PSA - lower urinary tract symptoms Recent admission to [facility] with elevated creatinine. Barakat catheter placed. Ultrasound has been performed showing bilateral hydronephrosis Barakat catheter in place Review lab work in 3-4 weeks If improved will schedule for GreenLight laser prostate Prior cystoscopy with large prostate CT scan with thickened bladder wall, 120 cc prostate, bilateral hydro secondary to incomplete bladder emptying Recommend prostate procedure with bilateral retrogrades Elevated PSA and lower urinary tract symptoms Longstanding elevated PSA Prior PSA 2018 6.4, 07/14 6.2, 02/11 5.9 25% Prior evaluation with Urology in recommendation for prostate biopsy Has concurrent lower urinary tract symptoms Urinary urgency with nocturia Weak stream ASHA 3+ prostate Proposed trial of combination therapy doxazosin with finasteride Will both lower PSA and address urinary symptoms PFSH Medical History Enlarged prostate Surgical History H/O colonoscopy Social History Patient Tobacco Use Status: Never used Tobacco Assessment & Plan Assessment & Plan (1) Hydronephrosis: Code(s): N13.30 - Unspecified hydronephrosis (2) BPH loc w urin obs/LUTS: Code(s): N40.1 - Benign prostatic hyperplasia with lower urinary tract symptoms Plan Continue finasteride Lab work in 3 weeks Orders: Orders Creatinine 3 Weeks N13.30 - Unspecified hydronephrosis Blood Urea Nitrogen 3 Weeks N13.30 - Unspecified hydronephrosis Medications: Refilled finasteride 5 mg PO DAILY 90 tabs 1RF 90 days N40.1 - Benign prostatic hyperplasia with lower urinary tract symptoms, N13.8 - Other obstructive and reflux uropathy, R33.9 - Retention of urine, unspecified Patient Instructions: Imaging studies, laboratory and physical exam results were discussed and reviewed in detail. No major barriers to patient understanding were identified. An opportunity to ask questions regarding the treatment plan was provided. All questions were answered. The patient expressed understanding and agreement with the above treatment plan. The patient is aware they should contact our office by phone for worsening of their current condition or the appearance of new urologic symptoms. Compliance is encouraged with any medications and followup testing that is ordered. It is a privilege to participate in the urologic care of your patient. If you have any questions or concerns regarding treatment for the above conditions, or other urologic issues, please do not hesitate to contact me. The office telephone contact is [phone]. This note is constructed using voice recognition software. While every effort has been made to ensure accuracy machine shop supervisor errors may have been included. Yours sincerely, Dr Fernando Haskins MD, [facility] - Urology Providers of Expert, Compassionate Care for the Genitourinary System Telehealth Telehealth Location of provider rendering services: practice address Location of patient: address on file Patient Identification confirmed using: Name, : Yes Telehealth method: voice only Patient verbally consented to treatment: Yes Patient verbally consented to billing insurance company: Yes Patient informed of any privacy concerns related to visit: Yes Coding Level of Care Code Est Pt Level 4 (96203) Diagnoses Hydronephrosis N13.30 BPH loc w urin obs/LUTS N40.1
== END 2023-11-19 15:39 | disposition home or self-care (01) ==
LOC: HO.HUSH 14:22
PROVIDERS: PCP Internal Medicine; Visit Provider Urology
DX: N13.30 Unspecified hydronephrosis (principal); N40.1 Benign prostatic hyperplasia with lower urinary tract symptoms
CPT/HCPCS: 99214

== ENCOUNTER → 2023-11-19 14:21 | Outpatient (BNVA) | payer OTHER, SELFPAY | PROVIDERS: PCP Internal Medicine; Visit Provider Urology | DX: N13.30 Unspecified hydronephrosis (principal); N40.1 Benign prostatic hyperplasia with lower urinary tract symptoms; N13.8 Other obstructive and reflux uropathy; R33.9 Retention of urine, unspecified | CPT/HCPCS: 99212 ==

== ENCOUNTER 2023-12-06 11:18 | Outpatient (REF) | payer OTHER, SELFPAY ==
[2023-12-06 12:56] LABS: Blood Urea Nitrogen 32 mg/dL (9-16); Estimated Glomerular Filt Rate 33
== END 2023-12-06 11:19 | disposition home or self-care (01) ==
LOC: HO.LAB 11:18
PROVIDERS: Visit Provider Urology
DX: N13.30 Unspecified hydronephrosis (principal)
CPT/HCPCS: 36415; 82565; 84520

== ENCOUNTER 2023-12-10 14:03 | Outpatient (AMB) | payer OTHER, SELFPAY ==
--- NOTE | 2023-12-10 14:07 | A.OFFVIS_ITS ---
Intake Visit Reasons: 3w cath change/labs(labs?)Confirmed Intake Note: Patient is present for lab follow up and Cath change Patient states catheter was placed on 11/18 Allergies pollen extracts Allergy (Verified 12/10/23 14:15) Unknown HPI Comments Details: Juan David is a very present Welsh male. He is a patient Dr. Santamaria. He is seen for the following urologic conditions - elevated PSA - lower urinary tract symptoms Recent admission to [facility] with elevated creatinine. Barakat catheter placed. Ultrasound has been performed showing bilateral hydronephrosis Barakat catheter in place Labs show improvement of creatinine from 3-2 Will schedule GreenLight laser prostatectomy Prior cystoscopy with large prostate CT scan with thickened bladder wall, 120 cc prostate, bilateral hydro secondary to incomplete bladder emptying Recommend prostate procedure with bilateral retrogrades Elevated PSA and lower urinary tract symptoms Longstanding elevated PSA Prior PSA 2018 6.4, 07/14 6.2, 02/11 5.9 25% Prior evaluation with Urology in recommendation for prostate biopsy Has concurrent lower urinary tract symptoms Urinary urgency with nocturia Weak stream ASHA 3+ prostate Proposed trial of combination therapy doxazosin with finasteride Will both lower PSA and address urinary symptoms PFSH Medical History Enlarged prostate Surgical History H/O colonoscopy Social History Patient Tobacco Use Status: Never used Tobacco Review of Systems Const Denies chills and Denies fever(s) Card Reports no additional complaints and Denies syncope Resp Denies cough GI Denies abdominal pain and Denies heartburn Reports as per HPI and Denies change in libido Neuro Denies syncope Psych Denies change in libido Endo Denies change in libido Physical Exam Const General: cooperative, healthy appearing, comfortable and no acute distress Orientation/consciousness: patient oriented x3 HEENT Face and sinus: Yes normal facial exam Mouth: moist mucous membranes Neck Neck: Yes normal visual inspection, Yes full ROM and Yes trachea midline Chest Chest palpation & inspection: normal inspection of the chest Resp Effort & Inspection: normal respiratory effort, able to speak in complete sentences and no respiratory distress GI Inspection: Yes normal to inspection Back/Spine/Pelvis Cervical Spine: normal cervical lordosis Thoracic/Lumbar Spine: thoracic and lumbar spine normal to inspection Skin General skin exam: no rashes or lesions noted Neuro General: patient oriented x3, gait normal, tone normal and moves all extremities Extrem General: Yes normal to inspection and Yes capillary refill normal Office Procedures Bladder/Catheter Procedure Details: 14 fr cath with 10ml balloon removed, patient tolerated well. Unable to place another 14fr catheter, 16 fr coude catheter with 10ml balloon placed. Patient tolerated placement well. Blue plug provided as well as night bag. Educated on use of plug and night time bag. Patient and pt understood all information. Dr. [place]ask[place] visit [id number] Temporary Bladder Catheter Procedure code (CPT) selection complete Assessment & Plan Assessment & Plan (1) Hydronephrosis: Code(s): N13.30 - Unspecified hydronephrosis Category: Medical (2) BPH loc w urin obs/LUTS: Code(s): N40.1 - Benign prostatic hyperplasia with lower urinary tract symptoms Category: Medical (3) Nocturia associated with benign prostatic hyperplasia: Code(s): N40.1 - Benign prostatic hyperplasia with lower urinary tract symptoms; R35.1 - Nocturia Category: Medical Plan We discussed the nature of the decision and reasonable options for performing a prostate intervention. Interventions include TURP, GreenLight laser enucleation of the prostate, GreenLight laser ablation of the prostate, transurethral incision of the prostate, and I-Tend prostate procedure. Options such as medical therapy were discussed. The relative uncertainties and benefits related to each alternate procedure were adequately discussed. General surgical risks including, but not limited to, pain, bleeding, infection, myocardial infarction, pulmonary embolus, deep vein thrombosis and cerebrovascular accident which may result in further hospitalization were discussed. Full disclosure of the procedure as well as all major risks, benefits and complications were discussed including but not limited to damage to the urethra or bladder neck, recurrent BPH, retrograde ejaculation, bladder infection, urge, de anabel frequency, incomplete emptying, dysuria, remote chance of erectile dysfunction, epididymitis, and meatal stenosis. The success rate of the procedure was discussed. Success of the procedure in the short-term does not necessarily guarantee that long-term success will be maintained. Suitable follow up will need to be maintained. The patient showed understanding of discussion. An opportunity was provided for questions to be answered and wishes to proceed with the following procedure. - GreenLight laser prostatectomy with bilateral retrogrades and possible stent Orders: Orders AMB Bladder/Catheter Procedure 12/10/23 N40.1 - Benign prostatic hyperplasia with lower urinary tract symptoms, R35.1 - Nocturia Patient Instructions: Imaging studies, laboratory and physical exam results were discussed and reviewed in detail. No major barriers to patient understanding were identified. An opportunity to ask questions regarding the treatment plan was provided. All questions were answered. The patient expressed understanding and agreement with the above treatment plan. The patient is aware they should contact our office by phone for worsening of their current condition or the appearance of new urologic symptoms. Compliance is encouraged with any medications and followup testing that is ordered. It is a privilege to participate in the urologic care of your patient. If you have any questions or concerns regarding treatment for the above conditions, or other urologic issues, please do not hesitate to contact me. The office telephone contact is [phone]. This note is constructed using voice recognition software. While every effort has been made to ensure accuracy principal technical writer errors may have been included. Yours sincerely, Dr Fernando Haskins MD, [facility] - Urology Providers of Expert, Compassionate Care for the Genitourinary System
== END 2023-12-10 14:57 | disposition home or self-care (01) ==
PROVIDERS: PCP Internal Medicine; Visit Provider Urology
DX: N13.30 Unspecified hydronephrosis (principal); N40.1 Benign prostatic hyperplasia with lower urinary tract symptoms
CPT/HCPCS: 51702; 99213

== ENCOUNTER → 2023-12-10 14:03 | Outpatient (BNVA) | payer OTHER, SELFPAY | PROVIDERS: PCP Internal Medicine; Visit Provider Urology | DX: N13.30 Unspecified hydronephrosis (principal); N40.1 Benign prostatic hyperplasia with lower urinary tract symptoms; R35.1 Nocturia | CPT/HCPCS: 51702; 99212 ==

== ENCOUNTER 2024-01-13 06:16 | Day surgery (SDC) | payer OTHER, SELFPAY ==
[2024-01-13 06:53] VITALS: BMI 16.9
[2024-01-13 06:54] VITALS: BP 92/58; PULSE 97; RESP 18; TEMP 37.2; O2SAT 97
[2024-01-13] MEDS: Lactated Ringers 1,000 ML 80 ML IVCONT (07:16)
--- NOTE | 2024-01-13 07:23 | P.HPSUR_ITS ---
Pre-Procedural Eval Section A - 24 Hr Update-Section A only Date of Service: 01/13/24 The patient is an INPATIENT: No Changes since office visit: No Cold of Flu in the past 2 weeks, No New Medical Problems, No Changes in Medication and No Patient answered all questions The patient has been examined within 24 hours of the surgical procedure. The History & Physical has been completed within 30 days and I have reviewed it.: No Section B - Complete if H&P > 30 days Chief Complaint: Benign prostatic hyperplasia with lower urinary tr Details of Present Illness: Urinary retention with bilateral hydrourete ronephrosis Relevant Family History (Specify if Yes): No Relevant Social History: None Present Medications: see Short Stay Collaborative assessment Medical History: No relevant PMH History of Previous Operations: No relevant previous surgery Allergies: Allergies Allergy/AdvReac Type Severity Reaction Status Date / Time pollen extracts Allergy Unknown Verified 01/13/24 06:29 Review of Systems Sugical H&P ROS: Negative: Constitution, Cardiovascular, Respiratory, Neurological, Psychiatric, Hem-Onc, Allergic/Immunologic, Gastrointestinal, Genitourinary, Musculoskeletal, Integumentary, Endocrine and Eyes/Ears/Nose/Throat Exam Surgical H&P Exam: Normal: HEENT, Normal: Heart, Normal: Lungs, Normal: Extremities, Normal: Abdomen, Normal: Skin and Normal: Neurological Plan Diagnosis/Plan: Unchanged (Cystoscopy, bilateral retrograde, GreenLight laser prostatectomy) I have reviewed the history and physical and performed a pertinent physical examination on my patient. No changes have occurred unless specified. Time Spent With Patient Time: Total time managing care of this patient today ____ minutes.
--- NOTE | 2024-01-13 07:28 | HO.ANESPROP2 ---
[facility] Active Problems Active Problems: All Active Problems Hydronephrosis (Acute) Reflux esophagitis (Acute) Elevated PSA (Acute) BPH loc w urin obs/LUTS (Acute) Nocturia associated with benign prostatic hyperplasia (Acute) Urinary urgency (Acute) Past Medical History Medical History Enlarged prostate Functional capacity: independent ambulation Family History Family history of problems with anesthesia: No Surgical History Surgical History H/O colonoscopy History of Problems with Anesthesia: No Social History Social History Patient Tobacco Use Status: Never used Tobacco Are you DNR?: No Advance Directives: No Advance Directives Information Provided: Yes Nutrition Risks: No Nutritional Risk Meds Allergies Allergy/AdvReac Type Severity Reaction Status Date / Time pollen extracts Allergy Unknown Verified 01/13/24 06:29 Active Medications: Current Medications Lactated Ringer's (Lr) 1,000 mls @ 80 mls/hr IVCONT .[id number] HORACIO Last Admin: 01/13/24 07:16 Dose: 80 mls/hr Levofloxacin (Levaquin) 500 mg in 100 mls @ 100 mls/hr IV PREOP ONE Stop: 01/13/24 08:19 Home Medications ?Medication ?Instructions ?Recorded ?Confirmed ?Last Taken ?Type tamsulosin 0.4 mg capsule 0.4 mg PO DAILY 01/13/24 01/13/24 Unknown History Exam Height,Weight and Vital Signs: Height 5 ft 6 in Weight 47.536 kg Last Vital Signs Temp 99.0 F 01/13/24 06:54 Pulse 97 01/13/24 06:54 Resp 18 01/13/24 06:54 BP 92/58 L 01/13/24 06:54 Pulse Ox 97 01/13/24 06:54 O2 Del Method Room Air 01/13/24 06:54 Airway Mallampati Class: II TM Dist: >3cm Neck ROM: Full Heart: RRR Lungs: CTA Assessment and Plan Assessment Anesthesia Assessment: Anesthesia Plan Discussed Final Anesthetic Review Family History of Problems with Anesthesia: No History of Problems with Anesthesia: No ASA Class: II Final Preanesthetic Review: Meds/Allgs Chart Reviewed, Consent Obtained/Reviewed and Anes Risks/Benef Reviewed Anesthetic Plan Anesthetic Plan: GA Disposition: Standard PACU
--- NOTE | 2024-01-13 09:05 | P.OP_ITS ---
Operative Note Operative Note Date of Service: 01/13/24 Narrative: PreOperative Diagnosis: Bladder outlet obstruction Post Operative Diagnosis: Bladder outlet obstruction Procedure: GreenLight Laser Enucleation of the prostate CPT 52463 Surgeon: Dr eFrnando Haskins Anesthesia: General Indications for procedure: failed voiding trials x2 History of bladder outlet obstruction. Treated with alpha-kiran and other medications. Still with symptoms. On cystoscopy in office has trilobar prostate. Recommendation for prostate procedure with laser enucleation of prostate. Risks and benefits have been discussed. Focus was placed on development of retrograde ejaculation which is a normal part of this procedure. Procedure: After informed consent was verified the patient was brought to the operating room and placed in a supine position. Anesthesia was administered per protocol. Patient was placed in modified dorsal lithotomy position and prepped and draped in a sterile fashion. Safety pause time-out was confirmed. Antibiotics have been given. A Twenty-four [place] laser cystoscope was inserted per urethra. No abnormalities were found of the anterior and bulbar urethra. The bladder was examined and both ureteric orifices were seen in their normal positions away from the area of interest. Using a GreenLight laser with settings of 80 w incisions were made at the 5 and 7 o'clock position. The incisions were taken down from the bladder neck down to the level of the veru. These were gradually deepened in order to define the lateral aspects of the median lobe area. Once clearly defined they will also extended in the lateral directions in order to create a deep groove. The median lobe was then ablated and enucleated tissue released into the bladder with the laser power increased to 120 W. Once the median lobe area had been cleared attention was directed to the lateral lobes. Starting with the patient's left lateral lobe. First the 05:00 o'clock groove was further developed. This was moved in the lateral direction to undermine the tissue on the lateral side running from the bladder neck to the prostate apex. Focus was then placed on the laser at the 1 o'clock position to developing a secondary groove down to the level of bladder fibers. The creation of a second deep groove defined a segment of intervening tissue similar to a slice of orange. At the apex of the prostate the 2 grooves were linked the us releasing the intervening tissue. This tissue was then removed with a combination of enucleation and ablation working from the apex toward the bladder neck. A similar procedure was repeated on the patient's right-hand side. The only differences being the position of the lateral groove at he 7 'oclock positioin and the secondary groove at the 11 o'clock position, Otherwise the procedure was developed in a mirror fashion. After the majority of tissue had been debulked remnant tissue was ablated with the side fire laser and the curve of the prostate followed up each side wall clearly defining the anterior remnant strip that remained between the 11 and 1 o'clock positions. When this was had been completed debris and pieces of prostate were removed from the bladder with irrigation. Both ureteric orifices were reviewed again in shown to be patent in away from any areas of energy damage. The apical area was reviewed in any stray ooze was controlled. A 22 [place] Citizen 30 cc balloon Barakat catheter was placed over a stylet into the bladder. Clear efflux was obtained upopn irrigation with a Deejay piston syringe. 30 cc was placed in the balloon and gentle traction was placed. A snap was used to hold tension on the catheter to control bleeding during patient moved and transported. A drainage bag was placed. Once transportation is complete to the PACU the snap will be removed. The patient tolerated the procedure well, he was extubated in the operating and transferred in a stable condition to the recovery area. Total Power 240 kW Lasing time 35:49 Pathology: Prostate tissue Drains: Barakat catheter
[2024-01-13 09:07] VITALS: BP 95/51; PULSE 68; RESP 16; TEMP 36.4; O2SAT 99
[2024-01-13 09:12] VITALS: BP 88/52; PULSE 66; RESP 16; O2SAT 99
[2024-01-13 09:17] VITALS: BP 85/51; PULSE 75; RESP 18; O2SAT 99
[2024-01-13 09:22] VITALS: BP 90/41; PULSE 72; RESP 18; O2SAT 99
[2024-01-13 09:37] VITALS: BP 96/58; PULSE 68; RESP 18; TEMP 36.3; O2SAT 98
--- NOTE | 2024-01-13 10:49 | HO.POSTANES ---
Post Anesthesia Evaluation Post Anesthesia Evaluation Date of Service: 01/13/24 Vital Signs: Vital Signs Temp Pulse Resp BP Pulse Ox O2 Del Method 01/13/24 09:37 97.4 F 68 18 96/58 L 98 Room Air 01/13/24 09:22 72 18 90/41 L 99 Room Air 01/13/24 09:17 75 18 85/51 L 99 Room Air 01/13/24 09:12 66 16 88/52 L 99 Room Air 01/13/24 09:07 97.5 F 68 16 95/51 L 99 Room Air 01/13/24 06:54 99.0 F 97 18 92/58 L 97 Room Air Anesthesia: General LMA Mental Status: Awake Pain Control: Satisfactory Nausea/Vomiting: None Hydration: Adequate Anesthesia-Related Issues: No Anes. Related Issues
== END 2024-01-13 10:44 | disposition home or self-care (01) ==
PROVIDERS: PCP Internal Medicine; Visit Provider Urology
PROC: (CPT 52648; principal; 2024-01-13 07:30)
DX: N40.1 Benign prostatic hyperplasia with lower urinary tract symptoms (principal); N32.0 Bladder-neck obstruction; R35.1 Nocturia; R33.9 Retention of urine, unspecified; Z79.899 Other long term (current) drug therapy
CPT/HCPCS: 52649; 88305; J1100; J1956; J2250; J2371; J2405; J2704; J3010; Q9967

== ENCOUNTER → 2024-01-13 06:16 | Outpatient (BNV) | payer OTHER, SELFPAY | PROVIDERS: PCP Internal Medicine; Visit Provider Urology | DX: N40.1 Benign prostatic hyperplasia with lower urinary tract symptoms (principal) | CPT/HCPCS: 52649 ==

== ENCOUNTER → 2024-01-16 11:10 | Outpatient (BNVA) | payer OTHER, SELFPAY | PROVIDERS: PCP Internal Medicine; Visit Provider Urology | DX: N40.1 Benign prostatic hyperplasia with lower urinary tract symptoms (principal) ==

== ENCOUNTER 2024-01-16 12:03 | Inpatient (IN) | payer OTHER, SELFPAY ==
--- NOTE | ~2024-01-16 | MR_ITS ---
EXAMINATION: MR BRAIN WITHOUT CONTRAST CLINICAL INFORMATION: Altered mental status COMPARISON: None available. TECHNIQUE: MRI of the brain was obtained using routine sequences without contrast. FINDINGS: Motion artifact is present. No acute intracranial hemorrhage or infarct. Scattered and confluent periventricular and deep white matter T2/FLAIR hyperintensities, nonspecific however commonly seen with small vessel ischemic disease. Diffuse prominence of the sulci with associated ex vacuo dilation of the ventricles compatible with global cerebral atrophy. No midline shift or hydrocephalus. No acute extra-axial fluid collections. The osseous structures are unremarkable. Partially empty sella. The pineal gland and remaining midline structures are unremarkable. No orbital pathology. Mucosal thickening of the paranasal sinuses. The mastoid air cells are clear. MR/MR head/brain wo con IMPRESSION: -No acute intracranial abnormalities. -Global cerebral atrophy and chronic microangiopathy.
--- NOTE | ~2024-01-16 | XR_ITS ---
EXAMINATION: XR CHEST CLINICAL INFORMATION: Chest pain. COMPARISON: None available. TECHNIQUE: 2 views of the chest were obtained. FINDINGS: The cardiomediastinal silhouette is normal in appearance. The lungs are clear. There is no pleural effusion or pneumothorax. There is no acute osseous abnormality. XR/XR chest 2V IMPRESSION: No acute cardiopulmonary disease.
--- NOTE | ~2024-01-16 | CT_ITS ---
EXAMINATION: CT HEAD WITHOUT CONTRAST CLINICAL INFORMATION: Altered mental status since procedure on Saturday. COMPARISON: None available. TECHNIQUE: Contiguous axial imaging was performed from the skull base to vertex without intravenous administration of contrast. This CT examination was performed using dose optimization techniques as appropriate, variously including the following: *Automated exposure control *Adjustment of mA and/or kV according to patient size (this includes techniques or standardized protocols for targeted exams where dose is matched to indication/reason for exam; i.e. extremities or head) *Use of iterative reconstruction technique DLP: 634 mGy-cm FINDINGS: There is no acute intracranial hemorrhage. There is no evidence of acute/subacute cerebral or cerebellar infarction. There is no mass effect or midline shift. There is no extra-axial fluid collection. The ventricles are normal in size and configuration. The orbits are symmetric and within normal limits. The calvarium is intact. The mastoid air cells are well aerated. Visualized paranasal sinuses are clear. CT/CT head/brain wo IV con IMPRESSION: No acute intracranial pathology.
--- NOTE | ~2024-01-16 | CT_ITS ---
EXAMINATION: CT CHEST, ABDOMEN AND PELVIS WITHOUT CONTRAST CLINICAL INFORMATION: Weight loss 20 lbs, can't use contrast. COMPARISON: CT abdomen and pelvis 04/26/2023, chest radiograph 01/16/2024. TECHNIQUE: Multidetector volumetric imaging was performed from the thoracic inlet through the pubic symphysis without IV contrast. Sagittal and coronal reformatted images were obtained on the technologist's workstation. This CT examination was performed using dose optimization techniques as appropriate, variously including the following: *Automated exposure control. *Adjustment of mA and/or kV according to patient size (this includes techniques or standardized protocols for targeted exams where dose is matched to indication/reason for exam; i.e. extremities or head). *Use of iterative reconstruction technique. DLP: 470 mGy-cm FINDINGS: CHEST: LUNG: The lungs are clear without focal opacity or nodule. Scarring/atelectasis is present at the left lung base. MEDIASTINUM: The mediastinum is normal. The central vascular structures are unremarkable. No hilar or mediastinal lymphadenopathy. Pericardium/Pleura: No significant effusion. No pleural mass or thickening. Chest Wall/Axilla: Unremarkable. ABDOMEN/PELVIS: Peritoneal Space: No significant free air or free fluid identified. LIVER, GALLBLADDER, AND BILIARY TREE: The liver is normal in size, shape, and attenuation. No focal hepatic lesion or biliary ductal dilatation is present. The gallbladder is unremarkable with no evidence of radiopaque gallstones, gallbladder wall thickening, or obvious pericholecystic inflammatory changes. PANCREAS: Unremarkable. SPLEEN: Unremarkable. ADRENAL GLANDS: Unremarkable. KIDNEYS AND URETERS: There is mild bilateral hydronephrosis seen, left greater than right. Compared to the prior study, there has been improvement in appearances with decreased in its extent. Proximal ureters remain mildly dilated but the distal ureters are not well seen. Again noted is a complex cyst present at the upper pole of the left kidney measuring just about 6 cm in size. There is some irregular calcification associated with this along with one area of slight increased density, possibly a solid component which has increased in size since the prior study; measuring 1.2 cm and previously measuring well under 1 cm. I would classify this as Bosniak class IIF. No other renal masses. A 2 mm area of punctate seen in the right kidney along with other smaller areas in both kidneys on the current exam (15:37 compare prior 5:54). BLADDER: The bladder is distended with a mildly thickened and trabeculated wall with some tiny diverticula. Some air is seen within the bladder-please correlate with history of catheterization. GASTROINTESTINAL TRACT: The small and large bowel are unremarkable. The appendix is unremarkable. ABDOMINAL WALL: No significant hernia is appreciated. LYMPH NODES: Normal. VASCULAR: Unremarkable. PELVIC VISCERA: There is marked prostatomegaly which has decreased in size slightly since the prior study. Seminal vesicles appear normal. OSSEOUS STRUCTURES: Unremarkable. CT/CT abdomen pelvis wo IV con IMPRESSION: 1. A cause for the patient's weight loss, such as an occult malignancy, has not been found. 2. Complex left renal cyst, Bosniak class IIF. Follow-up MRI is recommended as the apparently solid component has increased in size since the prior study. 3. Mild bilateral hydronephrosis, left greater than right, improved since the prior study. 4. Marked prostatomegaly with distended bladder and trabeculated wall with some tiny diverticula. 5. Air within the bladder-please correlate with history of catheterization. 6. Other incidental findings as described above. Fleischner guidelines were followed.
--- NOTE | 2024-01-16 12:05 | ED.GENADULT ---
HPI - General Adult General Chief complaint: Altered Mental Status Stated complaint: Stroke symptoms - sent by Time Seen by Provider: 01/16/24 18:52 Source: family Mode of arrival: ambulatory Limitations: no limitations History of Present Illness HPI narrative: Patient comes to the emergency room complaining accompanied by his . According to the patient's , on January 12, patient had a GreenLight laser enucleation of the prostate with Dr. Haskins. Patient's states that in the afternoon after the procedure, patient started acting strange, having repetitive movements, repeating questions, standing beside the bed poking the pillow with his finger over and over again. Initially, patient's thought this was secondary to side effect from anesthesia from the procedure. Patient went to sleep. Next day patient is kept asking weird. According to the patient patient has had in an out brief moments of lucidity but then within couple of minutes, patient starts acting abnormal and saying things that do not make sense. Also, the patient's states that he has been angry at her, yelling at her not to speak Bulgarian, only Spanish. Today, the patient was supposed to have a follow-up with Dr. Haskins, patient's dropped him off at the entrance so that he did not have to walk a long way from the parking lot. When she came back looking for him, the patient was gone, seems that the patient went to the wrong floor and started taking his clothes off. Here in the emergency room, patient is alert, refuses to open his eyes or talk. According to the patient's , at baseline patient is alert and oriented x3, acts normal and has normal conversations. -also, patient's mentioned that the patient has lost approximately 20 lb in 1 year for no clear reason. Related Data Home Medications ?Medication ?Instructions ?Recorded ?Confirmed tamsulosin 0.4 mg capsule 0.4 mg PO DAILY 01/13/24 01/13/24 Previous Rx's ?Medication ?Instructions ?Recorded doxazosin 4 mg tablet 4 mg PO BEDTIME 90 days #90 tabs 07/31/22 pantoprazole 40 mg tablet,delayed 40 mg PO DAILY #30 tabs 04/27/23 release (Protonix) sucralfate 1 gram tablet 1 g PO TID #90 tabs 04/27/23 finasteride 5 mg tablet 5 mg PO DAILY 90 days #90 tabs 11/20/23 oxybutynin chloride 5 mg tablet 5 mg PO BID PRN bladder spasms #30 12/20/23 tabs sulfamethoxazole 800 1 tab PO BID 14 days #28 tabs 01/13/24 mg-trimethoprim 160 mg tablet (Bactrim DS) Allergies Allergy/AdvReac Type Severity Reaction Status Date / Time pollen extracts Allergy Unknown Verified 01/16/24 12:10 Review of Systems Review of Systems: Yes Other (Not responding, unwilling to open his eyes) [facility] Past Medical History Medical History Enlarged prostate Surgical History H/O colonoscopy Social History Social History Patient Tobacco Use Status: Never used Tobacco Smoked in Last 30 Days: No Use of substances other than those prescribed or required for medical reasons: No Advance Directives: No Advance Directives Information Provided: No Do you have a plan to hurt others: No Plan Physical Exam ED Vital Signs: Vital Signs - 24 hr 01/16/24 12:07 01/16/24 18:45 01/16/24 22:29 Temperature 98.2 F 99.6 F Pulse Rate 91 91 100 Respiratory Rate 18 16 16 Blood Pressure 130/85 151/85 H 158/87 H Pulse Oximetry 100 98 Oxygen Delivery Method Room Air Room Air 01/17/24 00:12 Temperature 98.6 F Pulse Rate 96 Respiratory Rate 21 H Blood Pressure 144/80 H Pulse Oximetry 99 Oxygen Delivery Method Room Air BMI result Body Mass Index 16.8 Const Other: Appearance: Patient seems to be awake but refusing to open his eyes, playing possum, cachectic, occasionally opens his eyes when his talks to him in Spanish Eyes: With slight forceful eye opening, Pupils equal, round and reactive to light. ENT: Pharynx normal. Neck: Normal inspection. Neck supple. No lymph nodes noted. No crepitus CVS: Normal heart rate and rhythm. Pulses normal. Normal S1 and S2 Respiratory: No respiratory distress. Breath sounds normal. No Wheezing. No rales Abdomen: Soft and nontender. No rigidity. No distention. Skin: Skin warm and dry. Normal skin color. Normal skin turgor. Extremities: No lower extremity edema. No Lacerations. No Rash Neuro: Unable to assess, patient playing possum Psych: calm Course Course Course Narrative: This is a rapid medical exam: Additional HPI, ROS, PE not included below will be deferred to primary provider. Patient is a 78-year-old male with history of BPH presenting to the emergency department with complaint of states he had a greenlight procedure for his BPH on Saturday. She states that day he said things were repeating again, then that night his conversation was strange. The following day she states he was making repeated motions of touching items around the house repeatedly. She dropped patient at the door for a doctor's appointment but while she parked the car he went to the wrong floor. At the office he took off all of his clothes. states he was speaking angrily to her, not allowing her to speak in Bulgarian, telling her not to speak to him. She spoke to him in Spanish and he continued to tell her not to speak to him in Bulgarian. Patient then slept from 5pm yesterday to 5am today. Plan: labs, UA, viral swabs, CT head Medications Administered Discontinued Medications Generic Name Dose Route Start Last Admin Trade Name Freq PRN Reason Stop Dose Admin Sodium Chloride 1,000 mls @ 999 mls/hr 01/16/24 19:13 01/16/24 23:15 Ns IVCONT 01/16/24 20:13 Infused .Q1H1M ONE Infusion Medical Decision Making Medical Decision Making [facility] Narrative: Patient's white blood cell count within normal limits, hematology at baseline. Patient's creatinine 2.54, previously 1.98, troponin negative, ETOH level negative, serology negative for influenza, RSV and COVID. -my interpretation of head CT: No intracranial bleed -we are waiting for the urinalysis, this time 01:00, patient urinated but was incontinent, urine was not collected. -we discussed with the patient's that we need a urine to rule out urinary tract infection -at this time, 01:24, we received patient's urinalysis, positive for UTI. -patient has not had any fever or episodes of hypotension, white blood cell count within normal limits -patient receiving IV fluids and ceftriaxone. -discussed the patient with Dr. Irving, patient being admitted UTI encephalopathy Differential Diagnosis Differential Diagnoses: The differential diagnosis associated with the presentation includes (UTI encephalopathy, medication side effect) Admission/Observation Consideration of admission/observation: Escalation of care including admission/observation considered Consult Healthcare Provider Management of the patient was discussed with: Hospitalist Lab Data [facility] Lab Attestation statement: I reviewed the patient's lab results. 01/16/24 12:32 01/16/24 12:32 Labs: Lab Results 01/16/24 01/17/24 Range/Units 12:32 00:59 WBC 9.4 (4.8-10.8) X10*3/uL RBC 3.53 L (4.60-5.80) X10*6/uL Hgb 11.0 L (14.0-18.0) g/dl Hct 32.9 L (42.0-52.0) % MCV 93.2 (80.0-98.0) fL MCH 31.2 (27.0-33.0) pg MCHC 33.4 (31.0-36.0) g/dl RDW 12.5 (11.0-16.0) % Plt Count 370 D (160-400) X10*3/uL MPV 9.1 L (9.4-12.4) fL Immature Gran % (Auto) 0.5 H (0.0-0.4) % Neut % (Auto) 84.3 H (45-73) % Lymph % (Auto) 5.9 L (20-40) % [place] % (Auto) 9.0 (2-11) % Eos % (Auto) 0.1 (0-4) % Baso % (Auto) 0.2 (0-2) % Lymph # (Auto) 0.6 L (1.2-4.9) X10*3/uL [place] # (Auto) 0.8 (0.1-1.2) X10*3/uL Eos # (Auto) 0.0 (0.0-0.4) X10*3/uL Baso # (Auto) 0.0 (0.0-0.2) X10*3/uL Abs Immat Gran (auto) 0.05 H (0.00-0.03) X10*3/uL Absolute Neuts (auto) 7.9 (2.0-8.3) x10*3/uL Absolute Nucleated RBC 0.000 (0.0-0.012) X10*3/uL Nucleated RBC % (auto) 0.0 (0.0-0.2) /100WBC PT 13.1 (11.1-13.3) SEC INR 1.1 (0.9-1.1) Sodium 140 (135-145) mmol/L Potassium 4.1 (3.3-5.1) mmol/L Chloride 103 (96-108) mmol/L Carbon Dioxide 26 (22-29) mmol/L Anion Gap 15 (12-20) BUN 36 H (9-16) mg/dL Creatinine 2.54 H (0.5-1.4) mg/dL Estim Creat Clear Calc 16.5 Estimated GFR 25 Random Glucose 132 H (60-115) mg/dL Calcium 9.7 (8.4-10.2) mg/dL Total Bilirubin 0.4 (0.0-1.0) mg/dL AST 31 (5-37) U/L ALT 20 (0-40) U/L Alkaline Phosphatase 59 (39-117) U/L Troponin I High Sens 6.9 (<3.5-35.0) ng/L Total Protein 8.2 H (6.5-8.0) g/dL Albumin 3.7 (3.5-5.0) g/dL Urine Color RED Urine Appearance Cloudy Urine pH 6.0 (5.0-9.0) Ur Specific [place] 1.025 (1.005-1.025) Urine Protein 100 (2+) H (Neg-Trace) mg/dL Urine Glucose (UA) Negative (Negative) mg/dL Urine Ketones Negative (Negative) mg/dL Urine Blood Large (3+) H (Negative) Urine Nitrite Negative (Negative) Ur Leukocyte Esterase Small (1+) H (Negative) Urine RBC >20 H (0-2) /HPF Urine WBC 11-20 H (0-5) /HPF Ur Squamous Epith Cells 3-5 (0-2) /HPF Urine Bacteria 2+ (None Seen) Hyaline Casts 0-2 (0-2) /LPF Urine Opiates Screen Not Detected (Not Detect) Ur Buprenorphine Scrn Not Detected (Not Detect) ng/mL Ur Oxycodone Screen Not Detected (Not Detect) ng/mL Urine Methadone Screen Not Detected (Not Detect) ng/mL Urine Fentanyl Screen Not Detected (Not Detect) Ur Barbiturates Screen Not Detected (Not Detect) Ur Phencyclidine Scrn Not Detected (Not Detect) Ur Amphetamines Screen Not Detected (Not Detect) U Benzodiazepines Scrn Not Detected (Not Detect) Urine Cocaine Screen Not Detected (Not Detect) U Marijuana (THC) Screen Not Detected (Not Detect) Ethyl Alcohol < 10 mg/dL Influenza Type A (PCR) NEGATIVE (Negative) Influenza Type B (PCR) NEGATIVE (Negative) RSV RNA Qual (PCR) NEGATIVE (Negative) SARS-CoV-2 RNA (RT-PCR) NEGATIVE (Negative) Independent Interpretation I performed an independent interpretation of an: Plain X-Ray (My interpretation of chest x-ray: No infiltrates) and CT Scan Radiology Impression Discussion of test interpretation with radiology: I have reviewed the radiologist's reading. Radiologist Impression: FINDINGS: There is no acute intracranial hemorrhage. There is no evidence of acute/subacute cerebral or cerebellar infarction. There is no mass effect or midline shift. There is no extra-axial fluid collection. The ventricles are normal in size and configuration. The orbits are symmetric and within normal limits. The calvarium is intact. The mastoid air cells are well aerated. Visualized paranasal sinuses are clear. CT/CT head/brain wo IV con IMPRESSION: No acute intracranial pathology. FINDINGS: The cardiomediastinal silhouette is normal in appearance. The lungs are clear. There is no pleural effusion or pneumothorax. There is no acute osseous abnormality. XR/XR chest 2V IMPRESSION: No acute cardiopulmonary disease. Independent Historian Clinical information obtained from an independent historian. History obtained from or confirmed by: Spouse Critical Care Time Critical Care Time Critical Care Time: Yes Total Critical Care Time: 60 Attestation: I have personally provided critical care time. Time includes review of lab data, radiology results, discussion with consultants, and monitoring for potential decompensation. Intervention performed as documented. Discharge Plan Discharge Clinical Impression: Acute UTI, Encephalopathy Patient Disposition: Admitted As Inpatient Prescriptions: No Action finasteride 5 mg tablet 5 mg PO DAILY 90 Days Qty: 90 1RF oxybutynin chloride 5 mg tablet 5 mg PO BID PRN (Reason: bladder spasms) Qty: 30 0RF pantoprazole [Protonix] 40 mg tablet,delayed release (DR/EC) 40 mg PO DAILY Qty: 30 0RF sucralfate 1 gram tablet 1 g PO TID Qty: 90 0RF tamsulosin 0.4 mg capsule 0.4 mg PO DAILY sulfamethoxazole-trimethoprim [Bactrim DS] 800-160 mg tablet 1 tab PO BID 14 Days Qty: 28 0RF doxazosin 4 mg tablet 4 mg PO BEDTIME 90 Days Qty: 90 1RF Print Language: Bulgarian
[2024-01-16 12:07] VITALS: BP 130/85; PULSE 91; RESP 18; TEMP 36.8; O2SAT 100; BMI 16.8
--- NOTE | 2024-01-16 12:11 | ECG_ITS ---
Test Reason : ALTERED MENTAL Blood Pressure : / mmHG Vent. Rate : 094 BPM Atrial Rate : 094 BPM P-R Int : 180 ms QRS Dur : 076 ms QT Int : 370 ms P-R-T Axes : 076 068 075 degrees QTc Int : 462 ms Normal sinus rhythm Normal ECG No previous ECGs available Referred By: Monica Sheffield Electronically Signed By:SARA OSUNA MD
[2024-01-16 12:40] LABS: MANUAL DIFF FLAG NO
[2024-01-16 12:43] LABS: Basophils Percent Auto 0.2 % (0-2); Eosinophils Percent Auto 0.1 % (0-4); Hematocrit 32.9 % (42.0-52.0); Imm Gran Abs Auto 0.05 X10*3/uL (0.00-0.03); Imm Gran Pct Auto 0.5 % (0.0-0.4); Lymphocytes Absolute Auto 0.6 X10*3/uL (1.2-4.9); Lymphocytes Percent Auto 5.9 % (20-40); Mean Corpuscular HGB Conc 33.4 g/dl (31.0-36.0); Mean Corpuscular Hemoglobin 31.2 pg (27.0-33.0); Mean Corpuscular Volume 93.2 fL (80.0-98.0); Mean Platelet Volume 9.1 fL (9.4-12.4); Monocytes Absolute Auto 0.8 X10*3/uL (0.1-1.2); Neutrophils Absolute Auto 7.9 x10*3/uL (2.0-8.3); Neutrophils Percent Auto 84.3 % (45-73); Platelet Count 370 X10*3/uL (160-400); Red Blood Count 3.53 X10*6/uL (4.60-5.80); Red Cell Distribution Width 12.5 % (11.0-16.0); White Blood Count 9.4 X10*3/uL (4.8-10.8)
[2024-01-16 12:52] LABS: INTERNATIONAL NORM RATIO 1.1 (0.9-1.1); Prothrombin Time 13.1 SEC (11.1-13.3)
[2024-01-16 12:56] LABS: Ethanol < 10 mg/dL
[2024-01-16 12:57] LABS: Alanine Aminotransferase 20 U/L (0-40); Albumin Level 3.7 g/dL (3.5-5.0); Alkaline Phosphatase 59 U/L (39-117); Anion Gap 15 (12-20); Aspartate Amino Transferase 31 U/L (5-37); Bilirubin Total 0.4 mg/dL (0.0-1.0); Blood Urea Nitrogen 36 mg/dL (9-16); Calcium 9.7 mg/dL (8.4-10.2); Carbon Dioxide 26 mmol/L (22-29); Chloride 103 mmol/L (96-108); Creatinine Clr Calc Pharmacy 16.5; Estimated Glomerular Filt Rate 25; Glucose Random 132 mg/dL (60-115); Potassium 4.1 mmol/L (3.3-5.1); Sodium 140 mmol/L (135-145); Total Protein 8.2 g/dL (6.5-8.0)
[2024-01-16 13:05] LABS: Troponin-I High Sensitivity 6.9 ng/L (<3.5-35.0)
[2024-01-16 13:24] LABS: Influenza A PCR NEGATIVE (Negative); Influenza B PCR NEGATIVE (Negative); Resp Syncy Virus RNA Qual PCR NEGATIVE (Negative); SARS COV2 PCR INHOUSE NEGATIVE (Negative)
[2024-01-16 18:45] VITALS: BP 151/85; PULSE 91; RESP 16; TEMP 37.6
[2024-01-16] MEDS: 0.9 % Sodium Chloride 1,000 ML 999 ML IVCONT (19:58)
[2024-01-16 22:29] VITALS: BP 158/87; PULSE 100; RESP 16; O2SAT 98
[2024-01-17 00:12] VITALS: BP 144/80; PULSE 96; RESP 21; TEMP 37; O2SAT 99
--- NOTE | 2024-01-17 00:32 | PC.NURSE ---
this RN resumed care of pt at this time. vss and up to date. nsr/sinus tachy on the court monitor. HR 100-105 bpm. pt currently not responding to questions when being asked/continuously keeps eyes closed. pt is responsive to physical stimuli. [place] cath in place so UA can be obtained. no sob/wob noted. respirations even and unlabored. bedside for support plan of care ongoing. call rehman placed within reach.
[2024-01-17 01:13] LABS: Appearance Urine Cloudy; Color Urine RED; Glucose Urine UA Negative (Negative); Leukocyte Esterase Urine Small (1+) (Negative); Nitrite Urine Negative (Negative); Specific Gravity - Urine 1.025 (1.005-1.025); UMIC TRIGGER UACC YES; Urine Blood Large (3+) (Negative); Urine Ketones Negative (Negative); Urine Protein 100 (2+) mg/dL (Neg-Trace)
[2024-01-17 01:14] LABS: UACC Culture Trigger YES
[2024-01-17 01:15] LABS: Amphetamine Screen Urine Not Detected (Not Detect); Bacteria Urine 2+ (None Seen); Barbiturates, Urine Not Detected (Not Detect); Benzodiazepines Screen Urine Not Detected (Not Detect); Buprenorphine Scr Not Detected (Not Detect); Cannabinoid Screen Urine Not Detected (Not Detect); Cocaine Screen Urine Not Detected (Not Detect); Fentanyl, urine Not Detected (Not Detect); Hyaline Casts Urine 0-2 /LPF (0-2); Methadone Screen, Urine Not Detected (Not Detect); Opiate Screen Urine Not Detected (Not Detect); Oxycodone Screen Urine Not Detected (Not Detect); Phencyclidine Screen Urine Not Detected (Not Detect); RBC Urine >20 /HPF (0-2)
[2024-01-17] MEDS: cefTRIAXone sodium 1 GM in 0.9 % Sodium Chloride 50 ML IV ×2 (01:39→21:43)
[2024-01-17] MEDS: 0.9 % Sodium Chloride 1,000 ML 999 ML IVCONT (01:40)
--- NOTE | 2024-01-17 01:43 | PC.NURSE ---
pt/ aware of plan of care at this time. IVF/abx administered per provider order. plan of care ongoing. call rehman placed within reach.
[2024-01-17 01:55] VITALS: BP 149/73; PULSE 99; RESP 20; TEMP 37.4; O2SAT 97
[2024-01-17 01:55] LABS: Lactic Acid 0.7 mmol/L (0.5-2.0)
--- OUTSIDE RECORDS SUMMARY | 2024-01-17 02:02 | XMS_ITS | Continuity of Care Document ---
Author Organization [facility] ter Address [address] [place] [id number] Care Team Providers Care Oracle Technical Developer Name Role Phone Not on Staff, PCP Primary Care Physician Unavail able Encounter [facility] Date(s): 11/08/23 - 11/08/[address] [id number] Attending Physician: Chavez Avendano MD Patient Care team information Care Team Personnel Name: Not on Staff, PCP Position: S Physician (General Medicine) Member Role: PCP Care Team Related Persons Name: MONY PRECIADO Address: home [address] [place] [address]
--- NOTE | 2024-01-17 02:37 | P.HPHOSP_ITS ---
History of Present Illness Date of Service: 01/17/24 Attending physician on admission: Neville Rincon Chief Complaint: Confusion Juan David Coello is a 78 years old man with past medical history significant for BPH, recent s/p greenlight laser enucleation of the prostate by Dr. Haskins (January 13, 2024) and indwelling urinary catheter placement presents to the emergency department accompanied by his due to acute behavior and mental changes since Saturday after the procedure. HPI was over by patient's who was at bedside. said that the patient was having we are behavior such as poking his pillow, looking at the wall in a strange manner, speaking to himself and asking the same questions. He was also becoming very angry intermittently. said that these events has been happening intermittently with episodes of normal behavior. He will also have repetitive movement to his hands. thinks that the patient have low-grade fever and does not think the patient is having pain. There is no events of vomiting or diarrhea. The patient has been eating but he has lost 15 lb but was unable to tell me exactly for how long. He has history of dementia and does not have other diseases such as diabetes, hypertension or strokes. Patient has been taking a course of sulfamethoxazole/TMP since Saturday. In the ED was found to have stable vital signs. Blood workup showed no leukocytosis. Hemoglobin is at baseline. Creatinine is 2.54 and BUN is 36 (worsening when compared with prior). There are no electrolyte imbalances or acidosis. LFTs are normal. Urinalysis showed microscopic hematuria and elevated WBC (11-20). Urine drug screen is negative. Viral testing for influenza, COVID-19 and RSV is negative. His CT scan is negative. Chest, abdomen and pelvis CT scan did not show a cause for patient's weight loss, complex left renal cyst, mild bilateral hydronephrosis, marked prostatomegaly with distended bladder and trabecular wall with some tiny diverticuli. There is air within the bladder. ED tx: NS 2 L bolus, ceftriaxone 1 g IV. Review of Systems 2 Review of Systems: Yes Unobtainable due to mental status PMFSH Medical History Enlarged prostate Surgical History H/O colonoscopy Social History Patient Tobacco Use Status: Never used Tobacco Smoked in Last 30 Days: No Use of substances other than those prescribed or required for medical reasons: No Advance Directives: No Advance Directives Information Provided: No Do you have a plan to hurt others: No Plan Meds Allergies Allergy/AdvReac Type Severity Reaction Status Date / Time pollen extracts Allergy Unknown Verified 01/16/24 12:10 Active Medications: Current Medications Ceftriaxone Sodium 1 gm/ (Sodium Chloride) 50 mls @ 100 mls/hr IV Q24H [facility] Sodium Chloride (0.9 % Sodium Chloride Flush 3 Ml Syringe) 3 ml IVFLUSH QSHIFT [facility] Home Medications ?Medication ?Instructions ?Recorded ?Confirmed ?Last Taken ?Type tamsulosin 0.4 mg capsule 0.4 mg PO DAILY 01/13/24 01/13/24 Unknown History oxybutynin chloride 5 mg tablet 5 mg PO BID PRN bladder muscle 01/17/24 01/17/24 Unknown History dysfunction tamsulosin 0.4 mg capsule 0.4 mg PO DAILY 01/17/24 01/17/24 Unknown History Physical Exam 2 Vital Signs and Narrative: Vital Signs: Last Vital Signs Temp 99.4 F 01/17/24 01:55 Pulse 99 01/17/24 01:55 Resp 20 01/17/24 01:55 BP 149/73 H 01/17/24 01:55 Pulse Ox 97 01/17/24 01:55 O2 Del Method Room Air 01/17/24 01:55 BMI result Body Mass Index 16.8 Constitutional - Sleeping. Opens eyes upon calling his name. No distress. Afebrile. HEENT - Atraumatic head. PERRL. No scleral icterus. Heart - RRR. No murmur. Lungs - Normal lung expansion, Normal respiratory effort, No respiratory distress, CTA bilaterally Abdomen - NT / ND; +BS; No rebound or guarding - Indwelling urinary catheter in place. Yellow nonbloody urine bag. Extremities - no calf tenderness bilaterally, no swelling Skin - Warm/Dry. No pallor. Neurological - Open eyes upon calling his name. He did not answer my questions or follow simple commands. No facial droop noted. Right hand with intermittent tapping motions. Psychological - No agitation. Results Labs 01/16/24 12:32 01/16/24 12:32 Labs: Laboratory Results - last 24 hr 01/16/24 01/17/24 01/17/24 12:32 00:59 01:39 MCV 93.2 MCH 31.2 MCHC 33.4 RDW 12.5 Plt Count 370 D MPV 9.1 L Immature Gran % (Auto) 0.5 H Neut % (Auto) 84.3 H Lymph % (Auto) 5.9 L [place] % (Auto) 9.0 Eos % (Auto) 0.1 Baso % (Auto) 0.2 Lymph # (Auto) 0.6 L [place] # (Auto) 0.8 Eos # (Auto) 0.0 Baso # (Auto) 0.0 Abs Immat Gran (auto) 0.05 H Absolute Neuts (auto) 7.9 Absolute Nucleated RBC 0.000 Nucleated RBC % (auto) 0.0 PT 13.1 INR 1.1 Anion Gap 15 Estim Creat Clear Calc 16.5 Estimated GFR 25 Random Glucose 132 H Lactic Acid 0.7 Calcium 9.7 Total Bilirubin 0.4 AST 31 ALT 20 Alkaline Phosphatase 59 Troponin I High Sens 6.9 Total Protein 8.2 H Albumin 3.7 Urine Color RED Urine Appearance Cloudy Urine pH 6.0 Ur Specific [place] 1.025 Urine Protein 100 (2+) H Urine Glucose (UA) Negative Urine Ketones Negative Urine Blood Large (3+) H Urine Nitrite Negative Ur Leukocyte Esterase Small (1+) H Urine RBC >20 H Urine WBC 11-20 H Ur Squamous Epith Cells 3-5 Urine Bacteria 2+ Hyaline Casts 0-2 Urine Opiates Screen Not Detected Ur Buprenorphine Scrn Not Detected Ur Oxycodone Screen Not Detected Urine Methadone Screen Not Detected Urine Fentanyl Screen Not Detected Ur Barbiturates Screen Not Detected Ur Phencyclidine Scrn Not Detected Ur Amphetamines Screen Not Detected U Benzodiazepines Scrn Not Detected Urine Cocaine Screen Not Detected U Marijuana (THC) Screen Not Detected Ethyl Alcohol < 10 Influenza Type A (PCR) NEGATIVE Influenza Type B (PCR) NEGATIVE RSV RNA Qual (PCR) NEGATIVE SARS-CoV-2 RNA (RT-PCR) NEGATIVE Imaging Radiologist's Impressions: Impressions Chest X-Ray 01/16/24 12:45 IMPRESSION: No acute cardiopulmonary disease. Head CT 01/16/24 13:44 IMPRESSION: No acute intracranial pathology. Abdomen/Pelvis CT 01/16/24 19:42 IMPRESSION: 1. A cause for the patient's weight loss, such as an occult malignancy, has not been found. 2. Complex left renal cyst, Bosniak class IIF. Follow-up MRI is recommended as the apparently solid component has increased in size since the prior study. 3. Mild bilateral hydronephrosis, left greater than right, improved since the prior study. 4. Marked prostatomegaly with distended bladder and trabeculated wall with some tiny diverticula. 5. Air within the bladder-please correlate with history of catheterization. 6. Other incidental findings as described above. Fleischner guidelines were followed. Chest CT 01/16/24 19:42 IMPRESSION: 1. A cause for the patient's weight loss, such as an occult malignancy, has not been found. 2. Complex left renal cyst, Bosniak class IIF. Follow-up MRI is recommended as the apparently solid component has increased in size since the prior study. 3. Mild bilateral hydronephrosis, left greater than right, improved since the prior study. 4. Marked prostatomegaly with distended bladder and trabeculated wall with some tiny diverticula. 5. Air within the bladder-please correlate with history of catheterization. 6. Other incidental findings as described above. Fleischner guidelines were followed. Assessment and Plan (1) Acute UTI: Status: Acute (2) Encephalopathy: Status: Acute Plan Juan David Coello is a 78 years old man with PMHx significant recent s/p greenlight laser enucleation of the prostate by Dr. Haskins (January 13, 2024) admitted with: * Abnormal behavior and confusion. Possible associated to urinary tract infection. Admit to hospitalist service. Continue empiric IV antibiotic therapy. Check TSH and vitamin B12. If abnormal behavior persists we will consider Neurology consult for further recommendations. * Urinary tract infection. Continue ceftriaxone. Urine culture obtained -will follow results. * Acute on chronic kidney disease stage 4. IVFs were given in ED. Hold Bactrim. Avoid nephrotoxic agents/NSAIDs. Low-salt diet. Continue to monitor renal function. Patient was seen by Dr. Gene Avendano last month. * Chronic anemia, continue to monitor. Anemia workup. * Weight loss. Head, chest, abdomen and pelvis CT scan not revealing. Need complete workup as an outpatient. * Known left upper pole renal cyst. * BPH + chronic bilat hydronephrosis. Continue finasteride. DVT prophylaxis: SCDs. Code status: Full Patient will need hospitalization for at least 2 midnights for IV antibiotic therapy and close monitoring of recent mental changes. Quality Stroke Does the patient have a stroke diagnosis?: No VTE Prior VTE?: No VTE Risk Level:: Medical - moderate - high VTE Device Contraindication: N/A - Device Ordered VTE Drug Contraindication: Treatment Not Indicated
[2024-01-17 05:16] LABS: MANUAL DIFF FLAG NO
[2024-01-17 05:19] LABS: Basophils Percent Auto 0.2 % (0-2); Eosinophils Percent Auto 0.1 % (0-4); Hemoglobin 8.8 g/dl (14.0-18.0); Imm Gran Abs Auto 0.05 X10*3/uL (0.00-0.03); Imm Gran Pct Auto 0.5 % (0.0-0.4); Lymphocytes Absolute Auto 0.5 X10*3/uL (1.2-4.9); Lymphocytes Percent Auto 4.9 % (20-40); Mean Corpuscular HGB Conc 32.6 g/dl (31.0-36.0); Mean Corpuscular Hemoglobin 30.7 pg (27.0-33.0); Mean Corpuscular Volume 94.1 fL (80.0-98.0); Mean Platelet Volume 8.9 fL (9.4-12.4); Monocytes Absolute Auto 0.6 X10*3/uL (0.1-1.2); Monocytes Percent Auto 6.6 % (2-11); Neutrophils Absolute Auto 8.3 x10*3/uL (2.0-8.3); Neutrophils Percent Auto 87.7 % (45-73); Platelet Count 284 X10*3/uL (160-400); Red Blood Count 2.87 X10*6/uL (4.60-5.80); Red Cell Distribution Width 12.4 % (11.0-16.0); White Blood Count 9.4 X10*3/uL (4.8-10.8)
[2024-01-17 05:34] LABS: Alanine Aminotransferase 13 U/L (0-40); Albumin Level 2.9 g/dL (3.5-5.0); Alkaline Phosphatase 47 U/L (39-117); Anion Gap 13 (12-20); Aspartate Amino Transferase 21 U/L (5-37); Bilirubin Total 0.3 mg/dL (0.0-1.0); Blood Urea Nitrogen 34 mg/dL (9-16); Calcium 8.6 mg/dL (8.4-10.2); Carbon Dioxide 19 mmol/L (22-29); Chloride 113 mmol/L (96-108); Creatinine Clr Calc Pharmacy 17.2; Estimated Glomerular Filt Rate 26; Glucose Random 77 mg/dL (60-115); Potassium 4.1 mmol/L (3.3-5.1); Sodium 141 mmol/L (135-145); Total Protein 6.3 g/dL (6.5-8.0)
--- NOTE | 2024-01-17 05:39 | PC.NURSE ---
pt continues to rest comfortably throughout the night in no apparent distress. 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 no sob/wob noted. respirations remain even and unlabored. awaiting bed assignment. bedside for support. plan of care ongoing. call rehman placed within reach.
[2024-01-17 05:41] LABS: Iron 20 mcg/dL (45-160); Percent Iron Saturation 13 % (15-50); Total Iron Binding Capacity 160 mcg/dL (228-428); Unsaturated Iron Binding 140 ug/dL
[2024-01-17 05:55] LABS: Thyroid Stimulating Hormone 2.63 uIU/mL (0.32-4.0)
[2024-01-17 06:12] VITALS: BP 152/74; PULSE 97; RESP 20; TEMP 37.7; O2SAT 96
[2024-01-17 06:21] LABS: Folate 10.5 ng/mL (> or = 4.0); Vitamin B12 520 pg/mL (200-900)
[2024-01-17 08:00] VITALS: BP 159/80; PULSE 99; RESP 16; TEMP 37.8; O2SAT 97
--- NOTE | 2024-01-17 08:31 | PHA.MEDREC ---
Pharmacy Consult ? Medication Reconciliation Pharmacy has completed the medication reconciliation. Spoke with , who showed his pill box of what he actually takes daily. She provided a med list from recent hospital visit, however medications that the list had, that were not in his pill box were doxazosin, pantoprazole, sucralfate, and tamsulosin. Medication that patient takes daily (in his pill box) were finasteride, oxybutnin, vitamin d, and vitamin b weekly. Patient started Bactrim on Saturday, only took one tablet on Saturday, he has consumed 7 tabs of the 28 tablet course, and would finish his course on 01/23, with one tablet the last day.
[2024-01-17] MEDS: 0.9 % Sodium Chloride Flush 3 ML SYRINGE IVFLUSH ×3 (08:50→21:44)
--- NOTE | 2024-01-17 11:21 | MHC.CM.BRN ---
PT LIVED WITH PRIOR TO ADMISSIION THEY HAD NO SERVIES PT IS VERYU CONFUSED AT THIS TIME UNABLE TO DO A HCP PTS DC PLAN TBD PT PTS HSOPTIAL COURSE
--- NOTE | 2024-01-17 11:23 | HO.PM.IMPN ---
Subjective Subjective Date of Service: 01/17/24 Interval History: confused Review of Systems Review of Systems: Yes Unobtainable due to mental condition Physical Exam Vital Signs: Vital Signs: Last Vital Signs Temp 100.0 F 01/17/24 08:00 Pulse 99 01/17/24 08:00 Resp 16 01/17/24 08:00 BP 159/80 H 01/17/24 08:00 Pulse Ox 97 01/17/24 08:00 O2 Del Method Room Air 01/17/24 08:00 BMI result Body Mass Index 16.8 awake, tracking, echolalia, agitated at times, unable to answer appropriatley frail appearing, underweight Objective Data Active Medications Ceftriaxone Sodium 1 gm/ (Sodium Chloride) 50 mls @ 100 mls/hr IV Q24H [facility] Sodium Chloride (0.9 % Sodium Chloride Flush 3 Ml Syringe) 3 ml IVFLUSH QSHIFT [facility] Last Admin: 01/17/24 08:50 Dose: 3 ml Documented By: UQENTIN Labs 01/17/24 05:11 01/17/24 05:11 Labs: Laboratory Results - last 24 hr 01/16/24 01/17/24 01/17/24 12:32 00:59 01:39 MCV 93.2 MCH 31.2 MCHC 33.4 RDW 12.5 Plt Count 370 D MPV 9.1 L Immature Gran % (Auto) 0.5 H Neut % (Auto) 84.3 H Lymph % (Auto) 5.9 L [place] % (Auto) 9.0 Eos % (Auto) 0.1 Baso % (Auto) 0.2 Lymph # (Auto) 0.6 L [place] # (Auto) 0.8 Eos # (Auto) 0.0 Baso # (Auto) 0.0 Abs Immat Gran (auto) 0.05 H Absolute Neuts (auto) 7.9 Absolute Nucleated RBC 0.000 Nucleated RBC % (auto) 0.0 PT 13.1 INR 1.1 Anion Gap 15 Estim Creat Clear Calc 16.5 Estimated GFR 25 Random Glucose 132 H Lactic Acid 0.7 Calcium 9.7 Iron TIBC % Saturation Unsat Iron Binding Total Bilirubin 0.4 AST 31 ALT 20 Alkaline Phosphatase 59 Troponin I High Sens 6.9 Total Protein 8.2 H Albumin 3.7 Vitamin B12 Folate TSH Urine Color RED Urine Appearance Cloudy Urine pH 6.0 Ur Specific [place] 1.025 Urine Protein 100 (2+) H Urine Glucose (UA) Negative Urine Ketones Negative Urine Blood Large (3+) H Urine Nitrite Negative Ur Leukocyte Esterase Small (1+) H Urine RBC >20 H Urine WBC 11-20 H Ur Squamous Epith Cells 3-5 Urine Bacteria 2+ Hyaline Casts 0-2 Urine Opiates Screen Not Detected Ur Buprenorphine Scrn Not Detected Ur Oxycodone Screen Not Detected Urine Methadone Screen Not Detected Urine Fentanyl Screen Not Detected Ur Barbiturates Screen Not Detected Ur Phencyclidine Scrn Not Detected Ur Amphetamines Screen Not Detected U Benzodiazepines Scrn Not Detected Urine Cocaine Screen Not Detected U Marijuana (THC) Screen Not Detected Ethyl Alcohol < 10 Influenza Type A (PCR) NEGATIVE Influenza Type B (PCR) NEGATIVE RSV RNA Qual (PCR) NEGATIVE SARS-CoV-2 RNA (RT-PCR) NEGATIVE 01/17/24 05:11 MCV 94.1 MCH 30.7 MCHC 32.6 RDW 12.4 Plt Count 284 MPV 8.9 L Immature Gran % (Auto) 0.5 H Neut % (Auto) 87.7 H Lymph % (Auto) 4.9 L [place] % (Auto) 6.6 Eos % (Auto) 0.1 Baso % (Auto) 0.2 Lymph # (Auto) 0.5 L [place] # (Auto) 0.6 Eos # (Auto) 0.0 Baso # (Auto) 0.0 Abs Immat Gran (auto) 0.05 H Absolute Neuts (auto) 8.3 Absolute Nucleated RBC 0.000 Nucleated RBC % (auto) 0.0 PT INR Anion Gap 13 Estim Creat Clear Calc 17.2 Estimated GFR 26 Random Glucose 77 Lactic Acid Calcium 8.6 D Iron 20 L TIBC 160 L % Saturation 13 L Unsat Iron Binding 140 Total Bilirubin 0.3 AST 21 ALT 13 Alkaline Phosphatase 47 Troponin I High Sens Total Protein 6.3 L Albumin 2.9 L Vitamin B12 520 Folate 10.5 TSH 2.63 Urine Color Urine Appearance Urine pH Ur Specific [place] Urine Protein Urine Glucose (UA) Urine Ketones Urine Blood Urine Nitrite Ur Leukocyte Esterase Urine RBC Urine WBC Ur Squamous Epith Cells Urine Bacteria Hyaline Casts Urine Opiates Screen Ur Buprenorphine Scrn Ur Oxycodone Screen Urine Methadone Screen Urine Fentanyl Screen Ur Barbiturates Screen Ur Phencyclidine Scrn Ur Amphetamines Screen U Benzodiazepines Scrn Urine Cocaine Screen U Marijuana (THC) Screen Ethyl Alcohol Influenza Type A (PCR) Influenza Type B (PCR) RSV RNA Qual (PCR) SARS-CoV-2 RNA (RT-PCR) Assessment and Plan (1) Encephalopathy: Status: Acute Plan 78M PMH bph s/p greenlight laser 01/13/24, CKD III-IV, at baseline independent in ADLs, drives, presented with AMS. acute metabolic encephalopathy possible related to infection [place], follow up cultures neuro eval aggie on ckd IV due to bactrim, decreased intake monitor bph with mild bilateral hydro flomax, proscar moderate protein calorie malnutrition unintentional weight loss, ?due to change in diet to lower protein/phosph dvt prophylaxis - hep sq full code reason for continued hospitalization:ams Quality Stroke Does the patient have a stroke diagnosis?: No VTE Prior VTE?: No VTE Risk Level:: Medical - moderate - high VTE Device Contraindication: N/A - Device Ordered VTE Drug Contraindication: Treatment Not Indicated
--- NOTE | 2024-01-17 12:18 | P.CNNE_ITS ---
History of Present Illness Data of Consult Service Date: 01/17/24 Primary Care Provider: Nikos Santamaria MD HPI Reason for consult: Encephalopathy 78 years old man with prostate disease was brought to hospital after change in mental status. Apparently he was showing odd behavior and not communicating and was brought here. He was unable to provide any history. I read the previous notes to get impression about him. There was no evidence of any recent focal weakness or seizure or fall. Review of Systems 2 Review of Systems: Could not be done with [facility] Past Medical History Medical History Enlarged prostate Surgical History Surgical History H/O colonoscopy Social History Social History Household Members: Spouse Household Members Other:: patient not verbally responding so all info from Housing: House Do you presently have visiting nurse or other home services: No Comment: 1:1 sitter Patient Tobacco Use Status: Never used Tobacco service: No Meds Allergies Allergy/AdvReac Type Severity Reaction Status Date / Time pollen extracts Allergy Unknown Verified 01/16/24 12:10 Active Medications: Current Medications Finasteride (Finasteride 5 Mg Tablet) 5 mg PO DAILY [facility] Heparin Sodium (Porcine) (Heparin Sodium,Porcine 5,000 Unit/Ml Vial) 5,000 unit SUBCUT Q12H [facility] Last Admin: 01/17/24 12:07 Dose: Not Given Ceftriaxone Sodium 1 gm/ (Sodium Chloride) 50 mls @ 100 mls/hr IV Q24H [facility] Sodium Chloride (0.9 % Sodium Chloride Flush 3 Ml Syringe) 3 ml IVFLUSH QSHIFT [facility] Last Admin: 01/17/24 08:50 Dose: 3 ml Tamsulosin HCl (Tamsulosin Hcl 0.4 Mg Capsule) 0.4 mg PO DAILY [facility] Home Medications ?Medication ?Instructions ?Recorded ?Confirmed ?Last Taken ?Type cholecalciferol (vitamin D3) 25 25 mcg PO DAILY 01/17/24 01/17/24 01/16/24 History mcg (1,000 unit) capsule (Vitamin D3) oxybutynin chloride 5 mg tablet 5 mg PO DAILY PRN bladder muscle 01/17/24 01/17/24 01/16/24 History dysfunction tamsulosin 0.4 mg capsule 0.4 mg PO DAILY 01/17/24 01/17/24 01/16/24 History vitamin B12 500 mcg-folic acid 400 1 tab PO QWEEK 01/17/24 01/17/24 01/13/24 History mcg tablet Physical Exam 2 Vital Signs: Vital Signs: Last Vital Signs Temp 100.0 F 01/17/24 08:00 Pulse 99 01/17/24 08:00 Resp 16 01/17/24 08:00 BP 159/80 H 01/17/24 08:00 Pulse Ox 97 01/17/24 08:00 O2 Del Method Room Air 01/17/24 08:00 BMI result Body Mass Index 16.8 Neuro: Other: He is alert and awake anxious looking around restless trying to get out of bed. He was not speaking and did not understand gestural or verbal commands. There was no obvious focal face arm or leg weakness. Plantars were withdrawing. There was no gaze deviation. Results Labs 01/17/24 05:11 01/17/24 05:11 Labs: Short CBC 01/16/24 01/17/24 Range/Units 12:32 05:11 WBC 9.4 9.4 (4.8-10.8) X10*3/uL Hgb 11.0 L 8.8 L (14.0-18.0) g/dl Hct 32.9 L 27.0 L (42.0-52.0) % Plt Count 370 D 284 (160-400) X10*3/uL BMP 01/16/24 01/17/24 12:32 05:11 Sodium 140 141 Potassium 4.1 4.1 Chloride 103 113 H Carbon Dioxide 26 19 L BUN 36 H 34 H Creatinine 2.54 H 2.44 H Calcium 9.7 8.6 D Liver Function 01/16/24 01/17/24 Range/Units 12:32 05:11 Total Bilirubin 0.4 0.3 (0.0-1.0) mg/dL AST 31 21 (5-37) U/L ALT 20 13 (0-40) U/L Alkaline Phosphatase 59 47 (39-117) U/L Albumin 3.7 2.9 L (3.5-5.0) g/dL Urine 01/17/24 Range/Units 00:59 Urine Color RED Urine Appearance Cloudy Urine pH 6.0 (5.0-9.0) Ur Specific [place] 1.025 (1.005-1.025) Urine Protein 100 (2+) H (Neg-Trace) mg/dL Urine Glucose (UA) Negative (Negative) mg/dL Head CT did not reveal any significant abnormality other than mild atrophy. Assessment and Plan (1) Encephalopathy: Status: Acute 78 years old man with change in mental status suggestive of significant encephalopathy with possibility of encephalitis until proven otherwise. He also had mild elevation of temperature. My recommendation at this time is to cover him with acyclovir and obtain lumbar puncture and rule out herpes, and send for meningoencephalitis panel. An MRI of brain when feasible is also recommended. An EEG similarly is recommended when do able. For now he was quite restless and may not be able to have either MRI or EEG. Procedures Date of Service Date of Service: 01/17/24
--- NOTE | 2024-01-17 13:30 | HO.WOUND ---
Wound Consult: Initial 78yr old?M admitted to [facility] on 01/16 - See progress notes and H&P for detailed history.? Wound consult placed for sacral wound POA.? Patientwas nonverbal at baseline per staff - he opened his eyes but did not respond to me verbally. Sactum Etiology: ??Deep tissue Injury Present on Admission Wound Bed: dark maroon purple nonblanchable dry lifting epidermla layer Drainage / Odor: None Edges: ? irregular Dafne wound: pink and areas of hyperpigmentation noted over bony prominence?including bilateral ischium No Induration, Fluctuance or Warmth noted Pain: denies Goals of Treatment: ? Foam dressing and discontinue brief use Recommendations: 1. Turn and Reposition every 2 hours and as needed for patient comfort.? Use pillows or wedges to support off loading positions. 2. Off Load all bony prominences with use of pillows and heel boots if needed.? Apply Preventative foams where needed. ? 3. Monitor for incontinence and moisture control, use barrier creams when needed for prevention and treatment. 4. Provide adequate and supplemental nutrition.? 5. Order or Continue low air loss mattress. 6. When applicable maintain blood glucose levels per Providers order. 7. Sacrum - Routine cleansing, apply sacral foam dressing peel back and assess Q shift and change every 3 days and PRN. Discontinue brief use as this traps moisture to patients skin putting them at risk for pressure injury development. Re-consult wound care Nurse for wound deterioration or wound changes.
--- NOTE | 2024-01-17 13:30 | MHC.SL.SWA ---
Speech Pathologist Impression: Risk of Aspiration Risk of Aspiration Due to: Reduced Cognition Dysphasia Diet Status: UPGRADE to REGULAR/THIN Liquid Consistency and Strategies for Safe Swallow: Liquid Intake Recommendation: Thin Liquid Intake Strategies: Small Sips Solid Food Consistency: Dietary Recommendations: Regular Additional Modifications to Solid Foods: Patient seen for bedside swallow exam. Unremarkable oral phase, good clearance, and no overt s/s of aspiration. Swallow function deemed WFL. Patient remains at risk of aspiration due to decreased mentation. Recommend REGULAR texture solids and THIN liquids, CRUSHED pills in PUREE. Minimize distractions during meal time. Patient to be provided with direct supervision during all PO intake for safety. Oral Medication Intake: Crushed with Puree Please contact the pharmacy regarding appropriate crushable or liquid drug formulations that are available whenever modified delivery is recommended. Compensatory Strategies and Precautions to be Taken for Safe Swallow: Sitting Upright (90 deg) Small Bites and Sips Rate of Ingestion Change Supervision While Eating and Drinking for Safe Swallow: Total Supervision (1:1) Swallowing Recommended Treatments: Compens. Strategy Educat. Recommendation for Speech: Inpatient Speech Therapy Comment: 1-2 f/u Advertising Sales Associate Clinican/Clinical Fellow: No Supervisory Statement: I have reviewed and agree with the student/clinical fellow's documentation: N/A Speech Language Pathologist: Ileana Vizcaino M.A., CCC-LOTTERY SALES CLERK
[2024-01-17 14:24] VITALS: BMI 16.8
--- NOTE | 2024-01-17 14:38 | MHC.CLN ---
NUTRITION CONSULT FOR WEIGHT LOSS. DIET=REGULAR. ATE 100% AT LUNCH TODAY. SKIN WITH DTI TO SACRUM. ADDING ENSURE CLEAR BID TO PROMOTE WOUND HEALING. PROVIDES 480 KCALS, 16 G PROTEIN. SPOKE WITH SIGNIFICANT OTHER BY PHONE. REPORTS THAT SINCE DX OF KIDNEY DISEASE, HAVE BEEN LIMITING MEAT PROTEIN AND NUTS. PER CONVERSATION, NOT FOLLOWING VEGETARIAN DIET. WEIGHT LOSS X ONE YEAR=-12.9%, BMI=16.8. NUTRITION DX MODERATE MALNUTRITION IN THE CONTEXT OF CHRONIC ILLNESS. FOLLOW FOR PO INTAKE AND SKIN INTEGRITY. SEE CLINICAL NUTRITION ASSESSMENT 01/17/24.
[2024-01-17 15:36] VITALS: BP 130/68; PULSE 94; RESP 20; TEMP 36.9; O2SAT 94
[2024-01-17 20:00] VITALS: BP 106/58; PULSE 84; RESP 16; TEMP 37.4; O2SAT 97
--- NOTE | 2024-01-18 03:59 | PC.NURSE ---
1930 pt is fully understanding the situation, answers all my questions, and reading a book, check his mail. throughout the night walked to the BR to eliminated to bowel and using the urinal, however, he's incontinent urine and bm. provided all care and changed coccyx foam dressing. no pain at all. so far pt AO x4. will continue monitor any changes s/s.
[2024-01-18 04:00] VITALS: BP 105/63; PULSE 68; RESP 16; TEMP 36.9; O2SAT 98
[2024-01-18 06:45] VITALS: BP 90/54; PULSE 68; RESP 16; TEMP 36.6; O2SAT 98
[2024-01-18] MEDS: Finasteride 5 MG TABLET PO (08:25)
[2024-01-18] MEDS: 0.9 % Sodium Chloride Flush 3 ML SYRINGE IVFLUSH ×3 (08:25→21:43)
[2024-01-18] MEDS: Tamsulosin HCL 0.4 MG CAPSULE PO (08:25)
--- NOTE | 2024-01-18 09:53 | P.PNIM_ITS ---
Subjective Subjective Date of Service: 01/18/24 Interval History: dramatic improvement in mental status, talking semifluent spanish, reports having had visual hallucinations, feelign in a haze, poor memory of events, now feeling back to normal Physical Exam 2 Vital Signs: Vital Signs: Last Vital Signs Temp 97.9 F 01/18/24 06:45 Pulse 68 01/18/24 06:45 Resp 16 01/18/24 06:45 BP 90/54 L 01/18/24 06:45 Pulse Ox 98 01/18/24 06:45 O2 Del Method Room Air 01/18/24 06:45 BMI result Body Mass Index 16.8 General: AO X 3, no acute distress Resp: CTA bilateral, no accessory muscles used CVS: S1,S2,RRR GI: soft, non tender, non distended Neuro: motor grossly intact, alert Psych: appropriate affect, appropriate insight Objective Data Active Medications Finasteride (Finasteride 5 Mg Tablet) 5 mg PO DAILY [facility] Last Admin: 01/18/24 08:25 Dose: 5 mg Documented By: VIKI Heparin Sodium (Porcine) (Heparin Sodium,Porcine 5,000 Unit/Ml Vial) 5,000 unit SUBCUT Q12H [facility] Last Admin: 01/17/24 12:07 Dose: Not Given Documented By: QUENTIN Non-Admin Reason: Patient Refused Ceftriaxone Sodium 1 gm/ (Sodium Chloride) 50 mls @ 100 mls/hr IV Q24H [facility] Last Infusion: 01/17/24 22:13 Dose: Infused Documented By: ROOSEVELT Lorazepam (Lorazepam 2 Mg/Ml Vial) 1 mg IVPUSH ONCE PRN PRN Reason: mri Sodium Chloride (0.9 % Sodium Chloride Flush 3 Ml Syringe) 3 ml IVFLUSH QSHIFT [facility] Last Admin: 01/18/24 08:25 Dose: 3 ml Documented By: VIKI Tamsulosin HCl (Tamsulosin Hcl 0.4 Mg Capsule) 0.4 mg PO DAILY [facility] Last Admin: 01/18/24 08:25 Dose: 0.4 mg Documented By: VIKI Labs 01/17/24 05:11 01/17/24 05:11 Assessment and Plan (1) Encephalopathy: Status: Acute Plan 78M PMH bph s/p greenlight laser 01/13/24, CKD III-IV, at baseline independent in ADLs, drives, presented with AMS. acute metabolic encephalopathy probably related to infection rocephin, follow up cultures significantly improved neuro appreciated, given significant improvement, convern for encephalitis much lower, will hold off on mri, acyclovir, and LP for now aggie on ckd IV due to bactrim, decreased intake monitor bph with mild bilateral hydro flomax, proscar moderate protein calorie malnutrition unintentional weight loss, ?due to change in diet to lower protein/phosph dvt prophylaxis - hep sq full code reason for continued hospitalization:awatiing cultures Quality Stroke Does the patient have a stroke diagnosis?: No VTE Prior VTE?: No VTE Risk Level:: Medical - moderate - high VTE Device Contraindication: N/A - Device Ordered VTE Drug Contraindication: Treatment Not Indicated
[2024-01-18] MEDS: Heparin Sodium,Porcine 5,000 UNIT/ML VIAL 5000 UNIT SUBCUT ×2 (11:31→22:35)
[2024-01-18 15:15] VITALS: BP 115/64; PULSE 64; RESP 20; TEMP 36.6; O2SAT 100
[2024-01-18 19:16] VITALS: BP 119/68; PULSE 99; RESP 20; TEMP 36.7; O2SAT 99
[2024-01-18] MEDS: cefTRIAXone sodium 1 GM in 0.9 % Sodium Chloride 50 ML IV (21:43)
[2024-01-19 03:36] VITALS: BP 111/61; PULSE 76; RESP 18; TEMP 36.1; O2SAT 77
[2024-01-19 06:49] VITALS: BP 117/62; PULSE 70; RESP 17; TEMP 36.6; O2SAT 99
[2024-01-19] MEDS: Finasteride 5 MG TABLET PO (08:39)
[2024-01-19] MEDS: Tamsulosin HCL 0.4 MG CAPSULE PO (08:39)
[2024-01-19] MEDS: 0.9 % Sodium Chloride Flush 3 ML SYRINGE IVFLUSH (08:40)
--- NOTE | 2024-01-19 09:05 | P.DS_ITS ---
DS: Providers Provider Date of Service: 01/19/24 Date of admission: 01/17/24 01:49 Primary care physician: Nikos Santamaria MD Consults: 01/17/24 10:26 Consult to Wound Care Routine Reason for consultation: impaired skin integrity 01/17/24 10:32 Consult to Neurology Routine Consulting Provider: [facility] Reason for consultation: ams 01/17/24 11:09 Consult for Sitter Routine Reason for consultation: agitation DS: Diagnosis Discharge Diagnosis (1) Encephalopathy: Status: Acute DS: Summary Hospital Course Hospital Course: from initial hpi: 78 years old man with past medical history significant for BPH, recent s/p greenlight laser enucleation of the prostate by Dr. Haskins (January 13, 2024) and indwelling urinary catheter placement presents to the emergency department accompanied by his due to acute behavior and mental changes since Saturday after the procedure. HPI was over by patient's who was at bedside. said that the patient was having we are behavior such as poking his pillow, looking at the wall in a strange manner, speaking to himself and asking the same questions. He was also becoming very angry intermittently. said that these events has been happening intermittently with episodes of normal behavior. He will also have repetitive movement to his hands. thinks that the patient have low-grade fever and does not think the patient is having pain. There is no events of vomiting or diarrhea. The patient has been eating but he has lost 15 lb but was unable to tell me exactly for how long. He has history of dementia and does not have other diseases such as diabetes, hypertension or strokes. Patient has been taking a course of sulfamethoxazole/TMP since Saturday. In the ED was found to have stable vital signs. Blood workup showed no leukocytosis. Hemoglobin is at baseline. Creatinine is 2.54 and BUN is 36 (worsening when compared with prior). There are no electrolyte imbalances or acidosis. LFTs are normal. Urinalysis showed microscopic hematuria and elevated WBC (11-20). Urine drug screen is negative. Viral testing for influenza, COVID-19 and RSV is negative. His CT scan is negative. Chest, abdom en and pelvis CT scan did not show a cause for patient's weight loss, complex left renal cyst, mild bilateral hydronephrosis, marked prostatomegaly with distended bladder and trabecular wall with some tiny diverticuli. There is air within the bladder. ED tx: NS 2 L bolus, ceftriaxone 1 g IV. hospital course: Patient was admitted for acute metabolic encephalopathy likely related to urinary tract infection in the setting of recent GreenLight laser procedure. He was treated with IV ceftriaxone and mental status dramatically improved to baseline. Urine culture and blood cultures were negative. On discharge will continue 5 more days of p.o. Ceftin. His Bactrim and oxybutynin will be discontinued. Patient was seen by Neurology initially, there was some concern for encephalitis, however with negative MRI and significant improvement on ceftriaxone decision made to defer lumbar puncture and discontinue acyclovir as encephalitis unlikely. MRI did show age-related degenerative changes. For acute kidney injury on CKD 4 this was likely due to Bactrim and decreased p.o. intake. Creatinine is 2.44 at discharge. Should continue to follow up with Nephrology as outpatient. For moderate protein calorie malnutrition, this is possibly due to recent change to strict renal diet. Referral to patient financial counselor is recommended. Should also consider age and risk appropriate cancer screening. For BPH with mild bilateral hydronephrosis he will continue on Flomax and Proscar, continue with Barakat placed during previously mentioned procedure and follow up with Urology as outpatient. Patient is back to his baseline will be discharged home. Time Attestation Discharge Coordination Time (in mins): 35 Quality: Safe Use of Opioids Does Pt have an Active Cancer Diagnosis on the Problem List?: No Quality: Stroke Does the patient have a stroke diagnosis?: No Physical Exam Vital Signs: Vital Signs: Last Vital Signs Temp 98 F 01/19/24 06:49 Pulse 70 01/19/24 06:49 Resp 17 01/19/24 06:49 BP 117/62 01/19/24 06:49 Pulse Ox 99 01/19/24 06:49 O2 Del Method Room Air 01/19/24 06:49 BMI result Body Mass Index 16.8 General: AO X 3, no acute distress Resp: CTA bilateral, no accessory muscles used CVS: S1,S2,RRR GI: soft, non tender, non distended Neuro: motor grossly intact, alert Psych: appropriate affect, appropriate insight DS: Data Data Completed and Pending Labs on day of discharge: Preliminary micro results at discharge 01/17/24 12:02 Blood Culture - Preliminary Blood - Venous No growth after 24 hours. 01/17/24 12:02 Blood Culture - Preliminary Blood - Venous No growth after 24 hours. Discharge Plan Discharge Anticipated Discharge Date/Time: 01/19/24 09:02 Patient Disposition: Home, Self-Care Discharge Diagnosis: encephalopathy due to uti Referrals: Fernando Haskins MD [Physician] - 1 Week Nikos Santamaria MD [Primary Care Provider] - 1 Week Discharge Medications: New cefuroxime axetil 500 mg tablet 500 mg PO BID Qty: 10 0RF Continued finasteride 5 mg tablet 5 mg PO DAILY 90 Days Qty: 90 1RF tamsulosin 0.4 mg capsule 0.4 mg PO DAILY cholecalciferol (vitamin D3) [Vitamin D3] 25 mcg (1,000 unit) Capsule 25 mcg PO DAILY vitamin F25-bnwhz acid 500-400 mcg Tablet 1 tab PO QWEEK Rx Instructions: administer with a meal Discontinued sulfamethoxazole-trimethoprim [Bactrim DS] 800-160 mg tablet 1 tab PO BID 14 Days Qty: 28 0RF oxybutynin chloride 5 mg tablet 5 mg PO DAILY PRN (Reason: bladder muscle dysfunction) Discharge Orders: Discharge Order (Routine); Ordered 01/19/24 Ordered By: Lucas Hamilton Diet: Advance to usual diet Activity on Discharge: As tolerated Stand Alone Forms: Patient Portal Discharge page Print Language: Greek Care Plan Goals: recovery Health Concerns: ams after urine infection Plan of Treatment: stop bactrim and oxybutinin 5 more days of ceftin follow up with urology and primary care doctor Assessment: see above
--- NOTE | 2024-01-19 09:46 | MHC.CM.PN ---
DP: PT HAS BEEN MEDICALLY CLEARED FOR DC HOME, NO SERVICES. FAMILY WILL TRANSPORT
[2024-01-22 13:08] LABS: Vitamin D 25-OH, D2 <4 ng/mL; Vitamin D 25-OH, D3 42 ng/mL; Vitamin D 25-OH, Total 42 ng/mL (30-100)
== END 2024-01-19 11:17 | disposition home or self-care (01) | DRG 690 ==
LOC: HO.ED 01-17 01:29 → HO.EDOVER 01-17 02:00 → HO.S3 01-17 07:38
PROVIDERS: Registered Nurse Emergency; Admitting Provider Internal Medicine; Emergency Provider Emergency Medicine; PCP Internal Medicine; Visit Provider Internal Medicine
DX: N13.6 Pyonephrosis (principal); Z68.1 Body mass index [BMI] 19.9 or less, adult; G93.40 Encephalopathy, unspecified; N13.8 Other obstructive and reflux uropathy; E44.0 Moderate protein-calorie malnutrition; N40.1 Benign prostatic hyperplasia with lower urinary tract symptoms; T36.8X5A Adverse effect of other systemic antibiotics, initial encounter; N18.4 Chronic kidney disease, stage 4 (severe); R63.4 Abnormal weight loss; N17.9 Acute kidney failure, unspecified; D63.1 Anemia in chronic kidney disease; Z20.822 Contact with and (suspected) exposure to COVID-19; N28.1 Cyst of kidney, acquired; Z79.899 Other long term (current) drug therapy
CPT/HCPCS: 0241U; 36415; 51700; 51798; 70450; 70551; 71046; 71250; 74176; 80053; 80307; 81001; 82306; 82607; 82746; 83540; 83605; 84443; 84484; 85025; 85610; 87040; 87086; 92610; 93005; 99285; J0133; J0696; J1644

== ENCOUNTER → 2024-01-16 12:11 | Outpatient (BNV) | payer OTHER, SELFPAY | PROVIDERS: PCP Internal Medicine; Visit Provider Internal Medicine Cardiovascular Disease | DX: R41.82 Altered mental status, unspecified (principal) | CPT/HCPCS: 93010 ==

== ENCOUNTER → 2024-01-17 01:49 | Outpatient (BNV) | payer OTHER, SELFPAY | PROVIDERS: Admitting Provider Internal Medicine; Emergency Provider Emergency Medicine; PCP Internal Medicine; Visit Provider Psychiatry & Neurology Neurology | DX: G93.40 Encephalopathy, unspecified (principal) | CPT/HCPCS: 99222 ==

== ENCOUNTER → 2024-01-17 01:49 | Outpatient (BNV) | payer OTHER, SELFPAY | PROVIDERS: Admitting Provider Internal Medicine; Emergency Provider Emergency Medicine; PCP Internal Medicine; Visit Provider Internal Medicine | DX: G93.41 Metabolic encephalopathy (principal) | CPT/HCPCS: 99222; 99233; 99239; 99499 ==

== ENCOUNTER 2024-02-18 15:49 | Outpatient (AMB) | payer OTHER, SELFPAY ==
--- NOTE | 2024-02-18 15:53 | MHC.OFFVIS ---
Intake Visit Reasons: Greenlight- follow up Allergies pollen extracts Allergy (Verified 01/16/24 12:10) Unknown Medication List - Last Reconciled 02/18/24 by Fernando Haskins MD cefuroxime axetil 500 mg PO BID cholecalciferol (vitamin D3) (Vitamin D3) 25 mcg PO DAILY finasteride 5 mg PO DAILY 90 days tamsulosin 0.4 mg PO DAILY vitamin M88-owasu acid 500-400 mcg 1 tab PO QWEEK HPI Comments Details: Juan David is a very present Yoruba male. He is a patient Dr. Santamaria. He is seen for the following urologic conditions - elevated PSA - lower urinary tract symptoms Follow-up prostate procedure Accompanied by Says he has significant improvement Elevated PSA and lower urinary tract symptoms Longstanding elevated PSA Prior PSA 2018 6.4, 07/14 6.2, 02/11 5.9 25% Prior evaluation with Urology in recommendation for prostate biopsy Has concurrent lower urinary tract symptoms Urinary urgency with nocturia Weak stream ASHA 3+ prostate Had admission to [facility] with retention and elevated creatinine. Improved with Barakat catheter. 120 g prostate [facility] Medical History Enlarged prostate Surgical History H/O colonoscopy Social History Household Members: Spouse Household Members Other:: patient not verbally responding so all info from Housing: House Do you presently have visiting nurse or other home services: No Comment: sitter for safety Patient Tobacco Use Status: Never used Tobacco service: No Review of Systems Const Denies chills and Denies fever(s) Card Reports no additional complaints and Denies syncope Resp Denies cough GI Denies abdominal pain and Denies heartburn Reports as per HPI and Denies change in libido Neuro Denies syncope Psych Denies change in libido Endo Denies change in libido Physical Exam Const General: cooperative, healthy appearing, comfortable and no acute distress Orientation/consciousness: patient oriented x3 HEENT Face and sinus: Yes normal facial exam Mouth: moist mucous membranes Neck Neck: Yes normal visual inspection, Yes full ROM and Yes trachea midline Chest Chest palpation & inspection: normal inspection of the chest Resp Effort & Inspection: normal respiratory effort, able to speak in complete sentences and no respiratory distress GI Inspection: Yes normal to inspection Back/Spine/Pelvis Cervical Spine: normal cervical lordosis Thoracic/Lumbar Spine: thoracic and lumbar spine normal to inspection Skin General skin exam: no rashes or lesions noted Neuro General: patient oriented x3, gait normal, tone normal and moves all extremities Extrem General: Yes normal to inspection and Yes capillary refill normal Office Procedures Post Void Residual Post Residual Void Post Void Residual (PVR): 19 [id number] Void Residual by ultrasound Assessment & Plan Assessment & Plan (1) Hydronephrosis: Code(s): N13.30 - Unspecified hydronephrosis Category: Medical (2) Nocturia associated with benign prostatic hyperplasia: Code(s): N40.1 - Benign prostatic hyperplasia with lower urinary tract symptoms; R35.1 - Nocturia Category: Medical Plan Three-month follow-up renal ultrasound and metabolic panel Orders: Orders AMB Post Void Residual by ultrasound 02/18/24 N40.1 - Benign prostatic hyperplasia with lower urinary tract symptoms US renal BI 3 Months N13.30 - Unspecified hydronephrosis Basic Metabolic Panel 3 Months N13.30 - Unspecified hydronephrosis Patient Instructions: Imaging studies, laboratory and physical exam results were discussed and reviewed in detail. No major barriers to patient understanding were identified. An opportunity to ask questions regarding the treatment plan was provided. All questions were answered. The patient expressed understanding and agreement with the above treatment plan. The patient is aware they should contact our office by phone for worsening of their current condition or the appearance of new urologic symptoms. Compliance is encouraged with any medications and followup testing that is ordered. It is a privilege to participate in the urologic care of your patient. If you have any questions or concerns regarding treatment for the above conditions, or other urologic issues, please do not hesitate to contact me. The office telephone contact is [phone]. This note is constructed using voice recognition software. While every effort has been made to ensure accuracy media production operator errors may have been included. Yours sincerely, Dr Fernando Haskins MD, [facility] - Urology Providers of Expert, Compassionate Care for the Genitourinary System Coding Level of Care Code Est Pt Level 3 (94437) Diagnoses Hydronephrosis N13.30 Nocturia associated with benign prostatic hyperplasia N40.1; R35.1 CPT Codes Post Residual Void - PVR CPT Code: 52229-Iklp Void Residual by ultrasound ([id number])
== END 2024-02-18 16:20 | disposition home or self-care (01) ==
PROVIDERS: PCP Internal Medicine; Visit Provider Urology
DX: N13.30 Unspecified hydronephrosis (principal); N40.1 Benign prostatic hyperplasia with lower urinary tract symptoms; R35.1 Nocturia
CPT/HCPCS: 99024

== ENCOUNTER → 2024-02-18 15:49 | Outpatient (BNVA) | payer OTHER, SELFPAY | PROVIDERS: PCP Internal Medicine; Visit Provider Urology | DX: N40.1 Benign prostatic hyperplasia with lower urinary tract symptoms (principal); R35.1 Nocturia; N13.30 Unspecified hydronephrosis | CPT/HCPCS: 51798; 99212 ==

== ENCOUNTER 2024-03-10 10:33 | Outpatient (REF) | payer OTHER, SELFPAY ==
[2024-03-10 10:49] LABS: MANUAL DIFF FLAG NO
[2024-03-10 11:37] LABS: Appearance Urine Clear; Color Urine Yellow; Glucose Urine UA Negative (Negative); Leukocyte Esterase Urine Moderate (2+) (Negative); Nitrite Urine Negative (Negative); PH 5.5 (5.0-9.0); Specific Gravity - Urine 1.015 (1.005-1.025); UMIC TRIGGER UA YES; Urine Blood Small (1+) (Negative); Urine Ketones Negative (Negative); Urine Protein Trace mg/dL (Neg-Trace)
[2024-03-10 12:03] LABS: Basophils Percent Auto 0.6 % (0-2); Eosinophils Absolute Auto 0.1 X10*3/uL (0.0-0.4); Hematocrit 37.9 % (42.0-52.0); Hemoglobin 12.4 g/dl (14.0-18.0); Imm Gran Abs Auto 0.03 X10*3/uL (0.00-0.03); Imm Gran Pct Auto 0.4 % (0.0-0.4); Lymphocytes Absolute Auto 0.9 X10*3/uL (1.2-4.9); Lymphocytes Percent Auto 12.8 % (20-40); Mean Corpuscular HGB Conc 32.7 g/dl (31.0-36.0); Mean Corpuscular Hemoglobin 31.4 pg (27.0-33.0); Mean Corpuscular Volume 95.9 fL (80.0-98.0); Mean Platelet Volume 10.3 fL (9.4-12.4); Monocytes Absolute Auto 0.6 X10*3/uL (0.1-1.2); Neutrophils Absolute Auto 5.6 x10*3/uL (2.0-8.3); Neutrophils Percent Auto 77.2 % (45-73); Platelet Count 233 X10*3/uL (160-400); Red Blood Count 3.95 X10*6/uL (4.60-5.80); Red Cell Distribution Width 14.4 % (11.0-16.0); White Blood Count 7.3 X10*3/uL (4.8-10.8)
[2024-03-10 12:05] LABS: Bacteria Urine None Seen (None Seen); Hyaline Casts Urine 0-2 /LPF (0-2); Other Crystals Urine Present; WBC Urine >50 /HPF (0-5)
[2024-03-10 12:37] LABS: Alanine Aminotransferase 34 U/L (0-40); Alkaline Phosphatase 99 U/L (39-117); Anion Gap 13 (12-20); Aspartate Amino Transferase 29 U/L (5-37); Bilirubin Total 0.2 mg/dL (0.0-1.0); Blood Urea Nitrogen 37 mg/dL (9-16); Calcium 8.8 mg/dL (8.4-10.2); Calcium 9.2 mg/dL (8.4-10.2); Carbon Dioxide 23 mmol/L (22-29); Chloride 111 mmol/L (96-108); Estimated Glomerular Filt Rate 38; Estimated Glomerular Filt Rate 39; Glucose Random 111 mg/dL (60-115); Iron 57 mcg/dL (45-160); Percent Iron Saturation 22 % (15-50); Potassium 4.8 mmol/L (3.3-5.1); Sodium 142 mmol/L (135-145); Total Iron Binding Capacity 265 mcg/dL (228-428); Total Protein 7.5 g/dL (6.5-8.0); Unsaturated Iron Binding 208 ug/dL
[2024-03-10 13:48] LABS: Vitamin B12 469 pg/mL (200-900)
== END 2024-03-10 10:34 | disposition home or self-care (01) ==
LOC: HO.LAB 10:33
PROVIDERS: Absent Provider Internal Medicine; PCP Internal Medicine; Visit Provider Internal Medicine Nephrology
DX: D64.9 Anemia, unspecified (principal); N17.9 Acute kidney failure, unspecified; N18.9 Chronic kidney disease, unspecified
CPT/HCPCS: 36415; 80051; 80053; 81001; 82310; 82565; 82607; 83540; 84520; 85025

== ENCOUNTER 2024-05-12 12:56 | Outpatient (REF) | payer OTHER, SELFPAY ==
--- NOTE | ~2024-05-12 | US_ITS ---
EXAMINATION: US RETROPERITONEAL COMPLETE (RENAL) CLINICAL INFORMATION: Unspecified hydronephrosis. CT abdomen and pelvis of 01/16/2024 at which time an MRI was recommended for further evaluation of a 6 cm left renal upper pole complex cyst, Bosniak 2F. COMPARISON: CT abdomen and pelvis of 01/16/2024, ultrasound bladder 08/12/2023, CT abdomen and pelvis 04/26/2023. TECHNIQUE: Real-time imaging of the kidneys and bladder. Limited visualization due to bowel gas. FINDINGS: RIGHT KIDNEY: 8.8 x 3.3 x 5.3 cm (SAG x AP x TRV). Multiple renal calculi, largest 0.7 cm lower pole. No hydronephrosis. Renal cortical thickness is normal. Limited visualization. LEFT KIDNEY: 10.9 x 5.3 x 5.7 cm (SAG x AP x TRV). Multiple renal calculi, largest lower pole 1.2 cm may represent a single conglomerate calcification versus cluster of calcifications. No hydronephrosis. Renal cortical thickness is normal. Limited visualization. Left renal 5.4 x 4.0 x 5.0 cm complex upper pole cyst with possible mural nodularity and septations is difficult to evaluate due to bowel gas and overlying ribs. US/US renal BI IMPRESSION: 1. Bilateral nephrolithiasis. No hydronephrosis. 2. Left renal 5.4 cm complex upper pole cyst with possible mural nodularity and septations is difficult to evaluate due to bowel gas and overlying ribs. CT scan of 01/16/2024 demonstrated a 6 cm left renal upper pole complex cyst, Bosniak 2F. As per report for CT abdomen and pelvis of 01/16/2024, dedicated MRI is recommended for further evaluation. Electronically signed by: Nasima Bolton MD 05/27/2024 05:18 AM EDT
== END 2024-05-12 12:57 | disposition home or self-care (01) ==
LOC: HO.US 12:56
PROVIDERS: PCP Internal Medicine; Visit Provider Urology
DX: N13.30 Unspecified hydronephrosis (principal)
CPT/HCPCS: 76775

== ENCOUNTER 2024-05-19 15:28 | Outpatient (AMB) | payer OTHER, SELFPAY ==
--- NOTE | 2024-05-19 15:36 | A.OFFVIS_ITS ---
Intake Visit Reasons: 3M Follow Up-Ultrasound/MRI(set) Allergies pollen extracts Allergy (Verified 01/16/24 12:10) Unknown Medication List - Last Reconciled 05/19/24 by Fernando Haskins MD cefuroxime axetil 500 mg PO BID cholecalciferol (vitamin D3) (Vitamin D3) 25 mcg PO DAILY finasteride 5 mg PO DAILY 90 days vitamin M51-alamk acid 500-400 mcg 1 tab PO QWEEK HPI Comments Details: Juan David is a very present Vietnamese male. He is a patient Dr. Santamaria. He is seen for the following urologic conditions - elevated PSA - lower urinary tract symptoms Significant improvement in voiding performance Hydronephrosis resolved on imaging Plan for check 6 months with PSA Continue finasteride 03/16 Cr 1.7 01/14 GreenLight laser prostatectomy for elevated creatinine and retention Elevated PSA and lower urinary tract symptoms Longstanding elevated PSA Prior PSA 2018 6.4, 07/14 6.2, 02/11 5.9 25% Prior evaluation with Urology in recommendation for prostate biopsy Has concurrent lower urinary tract symptoms Urinary urgency with nocturia Weak stream ASHA 3+ prostate Had admission to [facility] with retention and elevated creatinine. Improved with Barakat catheter. 120 g prostate on prior imaging PFSH Medical History Enlarged prostate Surgical History H/O colonoscopy Social History Household Members: Spouse Household Members Other:: patient not verbally responding so all info from Housing: House Do you presently have visiting nurse or other home services: No Comment: sitter for safety Patient Tobacco Use Status: Never used Tobacco service: No Review of Systems Const Denies chills and Denies fever(s) Card Reports no additional complaints and Denies syncope Resp Denies cough GI Denies abdominal pain and Denies heartburn Reports as per HPI and Denies change in libido Neuro Denies syncope Psych Denies change in libido Endo Denies change in libido Physical Exam Const General: cooperative, healthy appearing, comfortable and no acute distress Orientation/consciousness: patient oriented x3 HEENT Face and sinus: Yes normal facial exam Mouth: moist mucous membranes Neck Neck: Yes normal visual inspection, Yes full ROM and Yes trachea midline Chest Chest palpation & inspection: normal inspection of the chest Resp Effort & Inspection: normal respiratory effort, able to speak in complete sentences and no respiratory distress GI Inspection: Yes normal to inspection Back/Spine/Pelvis Cervical Spine: normal cervical lordosis Thoracic/Lumbar Spine: thoracic and lumbar spine normal to inspection Skin General skin exam: no rashes or lesions noted Neuro General: patient oriented x3, gait normal, tone normal and moves all extremities Extrem General: Yes normal to inspection and Yes capillary refill normal Assessment & Plan Assessment & Plan (1) Elevated PSA: Code(s): R97.20 - Elevated prostate specific antigen [PSA] Category: Medical (2) BPH loc w urin obs/LUTS: Code(s): N40.1 - Benign prostatic hyperplasia with lower urinary tract symptoms Category: Medical (3) Nocturia associated with benign prostatic hyperplasia: Code(s): N40.1 - Benign prostatic hyperplasia with lower urinary tract symptoms; R35.1 - Nocturia Category: Medical (4) Hydronephrosis: Code(s): N13.30 - Unspecified hydronephrosis Category: Medical Plan Six-month follow-up PSA Orders: Orders Prostate Specific Antigen 6 Months R97.20 - Elevated prostate specific antigen [PSA] Patient Instructions: Imaging studies, laboratory and physical exam results were discussed and reviewed in detail. No major barriers to patient understanding were identified. An opportunity to ask questions regarding the treatment plan was provided. All questions were answered. The patient expressed understanding and agreement with the above treatment plan. The patient is aware they should contact our office by phone for worsening of their current condition or the appearance of new urologic symptoms. Compliance is encouraged with any medications and followup testing that is ordered. It is a privilege to participate in the urologic care of your patient. If you have any questions or concerns regarding treatment for the above conditions, or other urologic issues, please do not hesitate to contact me. The office telephone contact is [phone]. This note is constructed using voice recognition software. While every effort hernandez s been made to ensure accuracy database management system specialist errors may have been included. Yours sincerely, Dr Fernando Haskins MD, [facility] Urology Providers of Expert, Compassionate Care for the Genitourinary System Coding Level of Care Code Est Pt Level 3 (17339) Diagnoses Elevated PSA R97.20 BPH loc w urin obs/LUTS N40.1 Nocturia associated with benign prostatic hyperplasia N40.1; R35.1 Hydronephrosis N13.30
== END 2024-05-19 16:18 | disposition home or self-care (01) ==
PROVIDERS: PCP Internal Medicine; Visit Provider Urology
DX: R97.20 Elevated prostate specific antigen [PSA] (principal); N40.1 Benign prostatic hyperplasia with lower urinary tract symptoms; R35.1 Nocturia; N13.30 Unspecified hydronephrosis
CPT/HCPCS: 99213

== ENCOUNTER → 2024-05-19 15:28 | Outpatient (BNVA) | payer OTHER, SELFPAY | PROVIDERS: PCP Internal Medicine; Visit Provider Urology | DX: R97.20 Elevated prostate specific antigen [PSA] (principal); R35.1 Nocturia; R39.12 Poor urinary stream; R39.15 Urgency of urination | CPT/HCPCS: 99212 ==

== ENCOUNTER 2024-06-18 16:01 | Outpatient (REF) | payer OTHER, SELFPAY ==
[2024-06-18 16:23] LABS: MANUAL DIFF FLAG NO
[2024-06-18 18:15] LABS: Basophils Percent Auto 0.4 % (0-2); Eosinophils Percent Auto 0.6 % (0-4); Hematocrit 42.9 % (42.0-52.0); Hemoglobin 14.2 g/dl (14.0-18.0); Imm Gran Abs Auto 0.02 X10*3/uL (0.00-0.03); Imm Gran Pct Auto 0.3 % (0.0-0.4); Lymphocytes Percent Auto 14.1 % (20-40); Mean Corpuscular HGB Conc 33.1 g/dl (31.0-36.0); Mean Corpuscular Volume 96.6 fL (80.0-98.0); Mean Platelet Volume 10.2 fL (9.4-12.4); Monocytes Absolute Auto 0.5 X10*3/uL (0.1-1.2); Monocytes Percent Auto 7.5 % (2-11); Neutrophils Absolute Auto 5.3 x10*3/uL (2.0-8.3); Neutrophils Percent Auto 77.1 % (45-73); Platelet Count 252 X10*3/uL (160-400); Red Blood Count 4.44 X10*6/uL (4.60-5.80); Red Cell Distribution Width 12.7 % (11.0-16.0); White Blood Count 6.9 X10*3/uL (4.8-10.8)
[2024-06-18 18:45] LABS: Alanine Aminotransferase 14 U/L (0-40); Albumin Level 4.3 g/dL (3.5-5.0); Alkaline Phosphatase 76 U/L (39-117); Anion Gap 14 (12-20); Aspartate Amino Transferase 20 U/L (5-37); Bilirubin Total 0.8 mg/dL (0.0-1.0); Blood Urea Nitrogen 27 mg/dL (9-16); Calcium 9.7 mg/dL (8.4-10.2); Carbon Dioxide 23 mmol/L (22-29); Chloride 110 mmol/L (96-108); Cholesterol 197 mg/dL (<200); Estimated Glomerular Filt Rate 39; Glucose Fasting 90 mg/dL (60-99); HDL Cholesterol 51 mg/dL (>40); LDL Cholesterol Calculated 133 mg/dL (<100); Potassium 4.5 mmol/L (3.3-5.1); Sodium 142 mmol/L (135-145); Total Protein 7.7 g/dL (6.5-8.0); Triglycerides 69 mg/dL (<150)
[2024-06-18 19:00] LABS: Vitamin B12 451 pg/mL (200-900)
== END 2024-06-18 16:02 | disposition home or self-care (01) ==
LOC: HO.LAB 16:01
PROVIDERS: PCP Internal Medicine; Visit Provider Internal Medicine
DX: E55.9 Vitamin D deficiency, unspecified (principal); N40.1 Benign prostatic hyperplasia with lower urinary tract symptoms; D64.9 Anemia, unspecified
CPT/HCPCS: 36415; 80053; 80061; 82306; 82607; 85025

== ENCOUNTER 2025-02-01 14:47 | Outpatient (REF) | payer MEDICARE, SELFPAY ==
--- OUTSIDE RECORDS SUMMARY | 2025-02-01 15:51 | XMS_ITS | Clinical Summary ---
Author Organization [facility] Address [address] [address] Phone Care Team Providers Care Surgeon Partner Name Role Phone Nikos Santamaria MD Primary Care Provider [phone] Allergies No known active allergies Medications Cyanocobalamin [...] Visit [facility] [address] [address] Nilesh Avendano MD [address] [phone] Health Maintenance Due Date Last Done Comments Influenza Vaccine (Season Ended) 2025 07/15/2014, 07/11/2012 Pneumococcal Vaccine: 50+ Years Completed 12/03/2019, 05/01/2013 Hepatitis B Vaccine Aged Out No longe r eligible based on patient's age to complete this topic Insurance A[employer] Medicare Care Teams Surgeon Partner Relationship Specialty Start Date End Date Nikos Santamaria MD [address] [place] [address] DR[address] [place] PCP - General Internal Medicine 03/12/24
--- OUTSIDE RECORDS SUMMARY | 2025-02-01 15:51 | XMS_ITS | Clinical Summary ---
Author Organization [facility] Address [address] [place] [address] Care Team Providers Care Fence Repairman Name Role Phone Ethel Martinez MD Primary Care Provider [phone] Family History Relation Name Status Comments Father [...] age to complete this topic Care Teams Fence Repairman Relationship Specialty Start Date End Date Ethel Martinez MD PCP - General Internal Medicine 07/17/21
--- OUTSIDE RECORDS SUMMARY | 2025-02-01 15:51 | XMS_ITS | Clinical Summary ---
Author Organization [facility] Address [address] [place] [address] Care Team Providers Care Lining Baster Name Role Phone Bubba Wyman MD Primary Care Provider [phone] Allergies No known active allergies Medications Medication [...] age to complete this topic Care Teams Lining Baster Relationship Specialty Start Date End Date Bubba Wyman MD [address] [place] [address] [place] [id number] PCP - General Family Medicine 01/17/18
[2025-02-01 16:58] LABS: Appearance Urine Clear; Color Urine Yellow; Glucose Urine UA Negative (Negative); Leukocyte Esterase Urine Negative (Negative); Nitrite Urine Negative (Negative); PH 5.5 (5.0-9.0); Specific Gravity - Urine 1.015 (1.005-1.025); Urine Blood Negative (Negative); Urine Ketones Negative (Negative); Urine Protein Negative (Neg-Trace)
[2025-02-01 17:11] LABS: Hematocrit 43.8 % (42.0-52.0); Hemoglobin 14.2 g/dl (14.0-18.0); Mean Corpuscular HGB Conc 32.4 g/dl (31.0-36.0); Mean Corpuscular Hemoglobin 31.2 pg (27.0-33.0); Mean Corpuscular Volume 96.3 fL (80.0-98.0); Mean Platelet Volume 10.3 fL (9.4-12.4); Platelet Count 228 X10*3/uL (160-400); Red Blood Count 4.55 X10*6/uL (4.60-5.80); Red Cell Distribution Width 12.9 % (11.0-16.0)
[2025-02-01 17:26] LABS: Alanine Aminotransferase 20 U/L (0-40); Albumin Level 4.2 g/dL (3.5-5.0); Anion Gap 10 (12-20); Aspartate Amino Transferase 39 U/L (5-37); Bilirubin Direct 0.2 mg/dL (0.0-0.5); Bilirubin Total 0.7 mg/dL (0.0-1.0); Blood Urea Nitrogen 32 mg/dL (9-16); Calcium 9.2 mg/dL (8.4-10.2); Carbon Dioxide 27 mmol/L (22-29); Chloride 107 mmol/L (96-108); Cholesterol 196 mg/dL (<200); Estimated Glomerular Filt Rate 51; Glucose Random 84 mg/dL (60-115); HDL Cholesterol 50 mg/dL (>40); LDL Cholesterol Calculated 129 mg/dL (<100); Potassium 4.8 mmol/L (3.3-5.1); Sodium 139 mmol/L (135-145); Total Protein 7.1 g/dL (6.5-8.0); Triglycerides 89 mg/dL (<150)
[2025-02-01 17:32] LABS: Alkaline Phosphatase 73 U/L (39-117)
[2025-02-01 17:44] LABS: Prostate Specific Antigen Scr 5.83 ng/mL (<0.05-4.0)
== END 2025-02-01 14:48 | disposition home or self-care (01) ==
LOC: HO.LAB 14:47
PROVIDERS: PCP Internal Medicine; Visit Provider Internal Medicine
DX: K21.00 Gastro-esophageal reflux disease with esophagitis, without bleeding (principal); R97.20 Elevated prostate specific antigen [PSA]; Z12.5 Encounter for screening for malignant neoplasm of prostate
CPT/HCPCS: 36415; 80048; 80061; 80076; 81003; 84153; 85027; 96127; 99202

== ENCOUNTER 2025-02-01 14:47 | Outpatient (AMB) | payer MEDICARE, SELFPAY ==
--- NOTE | 2025-02-01 14:08 | A.OFFPC_ITS ---
Vital Signs 02/01/25 15:03 Height 5 ft 6 in Weight 126 lb BMI 20.3 BP 110/68 Blood Pressure Location Lt brachial Position Sitting Pulse 69 Pulse Source Pulse Oximeter Temp 97.9 F Temp Source Axillary Pulse Oximetry (%) 98 Oxygen Delivery Method Room Air Intake Visit Reasons: Routine Oil Treater Required: No Accompanied by: Spouse Allergies pollen extracts Allergy (Verified 02/01/25 15:37) Unknown Medication List - Last Reconciled 02/01/25 by Last Aguilar MD cholecalciferol (vitamin D3) (Vitamin D3) 25 mcg PO DAILY finasteride 5 mg PO DAILY 90 days vitamin E37-kgema acid 500-400 mcg 1 tab PO QWEEK Tobacco use date assessed: 02/01/25 Fall risk assessment: No Falls in past year Last assessed Fall Risk: 02/01/25 Dental Screening Dental Screen Date: 02/01/25 Did you have a dental visit in the last 12 months?: Yes Did you have a dental problem in the last 6 months where you did not have access to dental care?: No HPI Routine HPI Details 79-year-old male presents to the office to discuss his chronic medical conditions. Patient is accompanied on this visit along with his . He is at baseline state of health. Able to function and do all activities of daily living. Requesting a refill on the finasteride. No difficulty in urination. No weakness, fever or shortness of breath. No nausea or vomiting. [facility] Medical History Enlarged prostate Surgical History H/O colonoscopy (~12/17/22) Family History Mother No problems noted. Father No problems noted. Social History Household Members: Spouse Household Members Other:: patient not verbally responding so all info from Housing: House Do you presently have visiting nurse or other home services: No Comment: sitter for safety Patient Tobacco Use Status: Never used Tobacco e-Cigarette/Vaping Use: Never Used service: No Current occupational status: retired Cognitive needs: No Hearing needs: No Vision needs: Yes (rx glasses) Questionnaire PHQ-9 Over the last 2 weeks, how often have you been bothered by any of the following problems? 1. Little interest or pleasure in doing things: not at all 2. Feeling down, depressed, or hopeless: not at all 3. Trouble falling or staying asleep, or sleeping too much: not at all 4. Feeling tired or having little energy: not at all 5. Poor appetite or overeating: not at all 6. Feeling bad about yourself - or that you are a failure or have let yourself or your family down: not at all 7. Trouble concentrating on things, such as reading the newspaper or watching t elevision: not at all 8. Moving or speaking so slowly that other people could have noticed. Or the opposite - being so fidgety or restless that you have been moving around a lot more than usual: not at all 9. Thoughts that you would be better off or of hurting yourself in some way: not at all Total score: 0 Depression Screening Interpretation: Negative Depression Screening Done: Yes Source: Developed by Drs. Carlos Valenzuela, Claire Jefferson, Yo Phipps and colleagues, with an educational loulou from [employer]. Thrive Questionnaire Date Thrive assessed: 02/01/25 I am a: Patient Within the past 12 months, did the food you bought not last and you didn't have the money to get more?: Never true Within the past 12 months, did you worry whether your food would run out before you got money to buy more?: Never true Do you have trouble paying for medicines?: No Do you have trouble getting transportation to medical appointments?: No Do you have trouble paying your heating and electricity bill?: No Do you have trouble taking care of your child, family member or friend?: No Do you have trouble with day-to-day activities such as bathing, preparing meals, shopping, managing finances, etc.?: No Are you currently unemployed and looking for a job?: No Are you interested in more education?: No Currently or been in a relationship where the following occur: No concerns reported THRIVE Score: 0 AUDIT C Alcohol Use Questionnaire (AUDIT-C) 1. How often do you have a drink containing alcohol?: Never 3. How often do you have six or more drinks on one occasion?: Never Total Score: 0 JOHN-7 AMB Questionnaire JOHN-7 Date JOHN - 7 assessed: 02/01/25 Feeling nervous, anxious, or on edge: 0 = Not at all Not being able to stop or control worryin = Not at all Worrying too much about different things: 0 = Not at all Trouble relaxin = Not at all Being so restless that it is hard to sit still: 0 = Not at all Becoming easily annoyed or irritable: 0 = Not at all Feeling afraid as if something awful might happen: 0 = Not at all Total JOHN-7 score (0-4 normal; 5-9 mild; 10-14 moderate; 15-21 severe): 0 Source: Developed by Drs. Carlos Valenzuela, Claire Jefferson, Yo Phipps and colleagues, with an educational loulou from [employer]. Physical exam (Primary Care) Vital Signs: Last Vital Signs Temp 97.9 F 02/01/25 15:03 Pulse 69 02/01/25 15:03 BP 110/68 02/01/25 15:03 Pulse Ox 98 02/01/25 15:03 Oxygen Delivery Method Room Air 02/01/25 15:03 Care Plan Goal for BP management: Blood pressure is in range. BMI result Body Mass Index 20.3 Tobacco/Smoking Status: Tobacco use Status Tobacco use date assessed 02/01/25 02/01/25 14:10 Patient Tobacco Use Status Never used Tobacco 02/01/25 14:10 e-Cigarette/Vaping Use Never Used 02/01/25 14:10 PHQ-9: PHQ-9 Score PHQ-9: Total score 0 02/01/25 15:08 Depression Screening Interpretation: Negative Thrive Assessment: Date of Thrive Assessment Date Thrive assessed 02/01/25 02/01/25 14:10 Currently or been in a relationship where the following occur: No concerns reported Advance Care Planning discussion: Exists, not on file Date of discussion: 02/01/25 Who was present: Patient, Forms completed: Health Care Proxy Actual minutes spent: 5 Const General: cooperative and healthy appearing Nutritional Appearance: well nourished Orientation/consciousness: patient oriented x3 Limitations: no limitations HENMT Head: Yes normal to inspection Eyes General: appearance normal, both eyes and all related structures Neck Neck: Yes normal visual inspection Chest Chest palpation & inspection: normal palpation of entire chest wall Resp Effort & Inspection: normal respiratory effort Neuro General: patient oriented x3 Coding Level of Care Code New Pt Level 4 (72388) Complex EM visit Add On G2211 Diagnoses Gastroesophageal reflux disease with esophagitis without hemorrhage K21.00 Esophagitis bleeding: without hemorrhage Elevated PSA R97.20 Additional Codes Vital Signs *Quality* - Advance Care Planning discussion: Exists, not on file ([id number]) Assessment & Plan Assessment & Plan (1) Reflux esophagitis: Code(s): K21.00 - Gastro-esophageal reflux disease with esophagitis, without bleeding Category: Medical Qualifiers: Esophagitis bleeding: without hemorrhage Qualified Code(s): K21.00 - Gastro-esophageal reflux disease with esophagitis, without bleeding Plan: Condition is stable. (2) Elevated PSA: Code(s): R97.20 - Elevated prostate specific antigen [PSA] Category: Medical Plan: Patient sees a urologist. He has agreed to see Dr. Haskins and follow-up with him. Orders: Orders UA and rflx microscopic Today K21.00 - Gastro-esophageal reflux disease with esophagitis, without bleeding, R97.20 - Elevated prostate specific antigen [PSA] Basic Metabolic Panel Today K21.00 - Gastro-esophageal reflux disease with esophagitis, without bleeding, R97.20 - Elevated prostate specific antigen [PSA] Complete Blood Count no Diff Today K21.00 - Gastro-esophageal reflux disease with esophagitis, without bleeding, R97.20 - Elevated prostate specific antigen [PSA] Lipid Panel Today K21.00 - Gastro-esophageal reflux disease with esophagitis, without bleeding, R97.20 - Elevated prostate specific antigen [PSA] Liver Panel Today K21.00 - Gastro-esophageal reflux disease with esophagitis, without bleeding, R97.20 - Elevated prostate specific antigen [PSA] Prostate Specific Antigen Scr Today K21.00 - Gastro-esophageal reflux disease with esophagitis, without bleeding, R97.20 - Elevated prostate specific antigen [PSA]
--- OUTSIDE RECORDS SUMMARY | 2025-02-01 14:50 | XMS_ITS ---
Author Organization [facility] Address [address] [place] [address] Care Team Providers Care Telepathist Name Role Phone Nikos Santamaria MD Primary Care Provider Unavaila Carlos Fitzgerald [phone] REASON FOR VISIT copayment Encounters Encounter Location Date Provider Diagnosis [facility] [address] [place] [address] 03/16/2024 Carlos Dykes Plan Of Treatment No Information Progress Notes * MICHAEL SCHNEIDERDOB:1945 (78 yo M)Acc No.[id number]:03/16/2024 Patient:?MICHAEL SCHNEIDER :1945???Age:78 Y???Sex:Male Address:[address] [place], [address] * true * Date:? Generated for Ciarrai marysol/Kim/eTransmitting on:?02/01/2025 02:50 PM EDT
--- OUTSIDE RECORDS SUMMARY | 2025-02-01 14:50 | XMS_ITS | Clinical Summary ---
Author Organization [facility] Address [address] [place] [address] Care Team Providers Care Weatherseal Technician Name Role Phone Bubba Wyman MD Primary Care Provider [phone] Allergies No known active allergies Medications Medication Sig Dispensed Refills Start Date End Date Status tamsulosin (FLOMAX) 0.4 MG CAPS 0.4 mg. 0 Active sildenafil (VIAGRA) 100 MG tablet 100 mg. 0 12/02/2014 Active Active Problems Problem Noted Date Diagnosed Date Enlarged prostate with urinary obstruction Elevated prostate specific antigen (PSA) Acquired cyst of kidney Urinary frequency Social History Tobacco Use Types Packs/Day Years Used Date Smoking Tobacco: Never Smokeless Tobacco: Never Alcohol Use Standard Drinks/Week Comments Yes 0 (1 standard drink = 0.6 oz pur e alcohol) Sex and Gender Information Value Date Recorded Sex Assigned at Not on file Gender Identity Not on file Sexual Orientation Not on file Last Filed Vital Signs Vital Sign Reading Time Taken Comments Blood Pressure 120/80 01/17/2018 9:42 AM EDT Pulse - - Temperature - - Respiratory Rate - - Oxygen Saturation - - Inhaled Oxygen Concentration - - Weight 61.2 kg (135 lb) 01/17/2018 9:42 AM EDT Height 165.1 cm (5' 5 ) 01/17/2018 9:42 AM EDT Body Mass Index 22.47 01/17/2018 9:42 AM EDT Plan of Treatment Health Maintenance Due Date Last Done Comments Hepatitis C Screening 1945 COVID-19 Vaccine (#1) 05/09/1946 Depression Screening 1959 Preventative Health Evaluation 1965 DTap / Tdap / Td (1 - Tdap) 1966 Shingrix-Zoster Vaccine (1 of 2) 1997 Fall Risk Assessment 2012 Pneumococcal Vaccine (1 of 1 - PCV) 2012 RSV Adult > 60+ Yrs or Pregn ant (1 - 1-dose 75+ series) 2022 Influenza Vaccine (#1) 2024 Hepatitis B Vaccines Aged Out No long er eligible based on patient's age to complete this topic RSV Ped < 20 months Aged Out No longe r eligible based on patient's age to complete this topic Care Teams Weatherseal Technician Relationship Specialty Start Date End Date Bubba Wyman MD [address] [place] [address] [place] [id number] PCP - General Family Medicine 01/17/18
--- OUTSIDE RECORDS SUMMARY | 2025-02-01 14:50 | XMS_ITS | Clinical Summary ---
Author Organization [facility] Address [address] [place] [address] Care Team Providers Care Cardiograph Operator Name Role Phone Ethel Martinez MD Primary Care Provider [phone] Family History Relation Name Status Comments Father Mother Social History Tobacco Use Types Packs/Day Years Used Date Smoking Tobacco: Never Assessed Sex and Gender Information Value Date Recorded Sex Assigned at Not on file Legal Sex Male 6:26 AM EST Gender Identity Not on file Sexual Orientation Not on file Obstetrics History Plan of Treatment Health Maintenance Due Date Last Done Comments DTaP,Tdap,and Td Vaccines (1 - Tdap) 1966 Pneumococcal Vaccine: 50+ Years (1 of 1 - PCV) 1997 Zoster Vaccines (1 of 2) 1997 Cholesterol Screening (Lipid Panel) 08/26/2022 Depression Screening 08/26/2022 Falls Risk Assessment 08/26/2022 Hepatitis C Screening 08/26/2022 Social Influencers of Health Screening 08/26/2022 RSV Immunization Adult Patients (1 - 1-dose 75+ series) 2022 COVID-19 Vaccine (4 - 2023-2 5 season) 2024 09/06/2021, 01/07/2021, 12/15/2020 Influenza Vaccine (Season Ended) 2025 HIB Vaccines Aged Out No longer eligi ble based on patient's age to complete this topic HPV Vaccines Aged Out No longer eligi ble based on patient's age to complete this topic Hepatitis A Vaccines Aged Out No long er eligible based on patient's age to complete this topic Hepatitis B Vaccines Aged Out No long er eligible based on patient's age to complete this topic IPV Vaccines Aged Out No longer eligi ble based on patient's age to complete this topic MMR Vaccines Aged Out No longer eligi ble based on patient's age to complete this topic Meningococcal ACWY Vaccine Aged Out N o longer eligible based on patient's age to complete this topic Meningococcal B Vaccine Aged Out No l onger eligible based on patient's age to complete this topic RSV Immunization Patients Under 20 months Aged Out No longer eligible b ased on patient's age to complete this topic Varicella Vaccines Aged Out No longer eligible based on patient's age to complete this topic Care Teams Cardiograph Operator Relationship Specialty Start Date End Date Ethel Martinez MD PCP - General Internal Medicine 07/17/21
--- OUTSIDE RECORDS SUMMARY | 2025-02-01 14:50 | XMS_ITS ---
Author Organization [facility] Address [address] [place] [address] Care Team Providers Care Health Claims Examiner Name Role Phone Nikos Santamaria MD Primary Care Provider Shaia Carlos Fitzgerald Unavailable [phone] REASON FOR VISIT Patient presents today for gerd Encounters Encounter Location Date Provider Diagnosis [facility] [address] [place] [address] 03/17/2024 Carlos Dykes Plan Of Treatment No Information Progress Notes * WYATT MICHAELDOB:1945 (79 yo M)Acc No.[id number]:03/17/2024 Progress Notes Patient:?MICHAEL SCHNEIDER Provider:?Carlos Dykes MD :1945???Age:78 Y???Sex:Male Abhi e:03/17/2024 Address:[address] [place] [address] [address] [place] [facility] Pcp:Nikos Santamaria MD Subjective: * Chief Complaints: * ???1. Patient presents today for gerd. * Medical History:? Objective: * Vitals:? Assessment: Plan: * Treatment: * * The named appointment provid er may or may not be the originator of this progress note, and it is not deemed complete until electronically signed by the appointment provider. Sign off status: Pending * Provider:?Carlos Dykes MD Date:? 024 Generated for Vidhi gregg/Fashannang/eTransmitting on:?02/01/2025 02:50 PM EDT
--- OUTSIDE RECORDS SUMMARY | 2025-02-01 14:50 | XMS_ITS | Patient Health Record ---
Author Organization [facility] Address [address] [place] [address] Care Team Providers Care Mohs Surgeon/General Dermatologist Name Role Phone Nikos Santamaria MD Primary Care Provider Carlos Solorio Unavailable [phone] Allergies Allergen (clinical drug ingredient) Drug/Non Drug Allergy documented on EMR Reaction Allergy Type Onset Date Status Pollen Pollen Unknown Allergy Active Reason For Referral No Information Medications Medication SIG (Take, Route, Frequency, Duration) Notes Start Date End Date Status Doxazosin Mesylate 4 MG Oral for 90 Uses rarely Active Finasteride 5 MG Oral for 90 Uses rarely Active Vitamin D (Cholecalciferol) 25 MCG (1000 UT) 1 capsule Orally Once a day for 30 day(s) Active Vitamin B 12 500 MCG 1 tablet Orally Onc e a day for 30 day(s) Active Immunizations Vaccine Route Administration Date Status Comme nts Influenza Unknown 06/26/2022 Administered Social History Tobacco Use: Social History Observation Description Date Details (start date - stop date) Never Smoker NA - NA Tobacco Use/Smoking Question Answer Notes Patient is a nonsmoker Alcohol Screen Question Answer Notes Did you have a drink contain ing alcohol in the past year? Yes How often did you have a dri nk containing alcohol in the past year? Monthly or less (1 point) How many drinks did you have on a typical day when you were drinking in the past year? 1 or 2 drinks (0 point) How often did you have 6 or more drinks on one occasion in the past year? Never (0 point) Points 1 Interpretation Negative Section Notes: Came from [place] in 1982 Vegetarian Problems Problem Type SNOMED Code ICD Code Onset Dates Problem Status W/U Status Risk Notes Problem 970774893 Colon cancer screening (Z12.11) Active confirmed Problem 875277444 History of adenomatous polyp of colon (Z86.010) Active confirmed Problem Diverticulosis o f large intestine without perforation or abscess without bleeding (K57.30) Active confirmed Problem [id number] Preprocedural examination (Z01.818) Active confirmed Encounters Encounter Location Date Provider Diagnosis [facility] [address] [place] [address] 03/13/2024 Carlos Dykes [facility] [address] [place] [address] 03/16/2024 Carlos Dykes Plan Of Treatment Future Test Test Name Order Date COLONOSCOPY 11/16/2022 Insurance Providers Payer Name Payer Address Payer Phone Subscriber Number Group Number Insured Name Patient Relationship to Insured Coverage Start Date Coverage End Date [facility] [address] [address] [place] [phone] [id number] MICHAEL SCHNEIDER Self - patient is the insured Medical (General) History Medical History History ICD Code Enlarged prostate Colon polyps removed in 2003 in [place], [place]; he had 2 negative followup colonoscopies in 2006 and 2009 in [place],DM,CVA,Lung disease,renal dise ase Surgical History Surgery Date(Month/Year)
--- OUTSIDE RECORDS SUMMARY | 2025-02-01 14:50 | XMS_ITS | Clinical Summary ---
Author Organization [facility] Address [address] [address] Phone Care Team Providers Care Whiskey Regauger Name Role Phone Nikos Santamaria MD Primary Care Provider [phone] Allergies No known active allergies Medications Cyanocobalamin (VITAMIN B 12 PO) Take by mouth Active VITAMIN D, CHOLECALCIFEROL , PO Take by mouth Active tamsulosin (FLOMAX) 0.4 MG 24 hr capsule Take by mouth 1 (one) time each day 4 Active ferrous sulfate 325 (65 Fe) MG tablet Take 325 mg by mouth 1 (one) time each day with breakfast Active finasteride (PROSCAR) 5 MG tablet Take 5 mg by mouth 1 (one) time each day Do not crush, chew, or split. Active Active Problems Problem Noted Date Diagnosed Date Acquired cyst of kidney 11/08/2023 Increased frequency of urination 11/08/2023 Resolved Problems Problem Noted Date Diagnosed Date Resolved Date Enlarged prostate 11/08/2023 11/08/2023 Diverticulosis of large inte amy without perforation or abscess without bleeding 11/08/2023 11/08/2023 Elevated prostate specific antigen (PSA) 11/08/2023 11/08/2023 Erectile dysfunction 12/03/2019 024 Overview (11/08/2023): Last Assessment & Plan: I refilled his viagra - to be taken as directed. Benign prostatic hyperplasia 02/03/2018 11/08/2023 Overview (11/08/2023): Last Assessment & Plan: Juan David has BPH and he will take his medication only as he needs it. He is asking for a referral back to Dr. Burnham. Megha 02/03/2018 024 Overview (11/08/2023): Last Assessment & Plan: He is not on any medication for this at this time. He will get his lab work done today. Immunizations Immunization Administration Dates Next Due Influenza, Unspecified 07/15/2014,07/11/2012 Pfizer SARS-COV-2 09/06/2021,01/07/2021,12/16/19 21 Pneumococcal Conjugate 13-Valent 12/03/2019 Pneumococcal Polysaccharide 05/01/2013 Td, Unspecified 01/09/2006 Tdap 02/12/2011 Social History Tobacco Use Types Packs/Day Years Used Date Smoking Tobacco: Never Passive Smoke Exposure: Never Smokeless Tobacco: Never Tobacco Cessation:Counseling Given: No Alcohol Use Standard Drinks/Week Comments Never 0 (1 standard drink = 0.6 oz pur e alcohol) Sex and Gender Information Value Date Recorded Sex Assigned at Male 12/11/2023 3:38 PM EDT Legal Sex Male 4:24 PM EST Gender Identity Male 12/11/2023 3:38 PM EDT Sexual Orientation Straight 12/11/2023 3: 38 PM EDT Last Filed Vital Signs Vital Sign Reading Time Taken Comments Blood Pressure 118/80 07/10/2024 12:02 PM EDT Pulse 84 07/10/2024 12:02 PM EDT Temperature - - Respiratory Rate - - Oxygen Saturation 96% 07/10/2024 12:02 PM EDT Inhaled Oxygen Concentration - - Weight 56.7 kg (125 lb) 07/10/2024 12:02 PM EDT Height - - Body Mass Index - - Plan of Treatment Upcoming Encounters Date Type Department Care Team (Late st Contact Info) Description 02/25/2025 4:15 PM EDT Office Visit [facility] [address] [address] Nilesh Avendano MD [address] [phone] Health Maintenance Due Date Last Done Comments Influenza Vaccine (Season Ended) 2025 07/15/2014, 07/11/2012 Pneumococcal Vaccine: 50+ Years Completed 12/03/2019, 05/01/2013 Hepatitis B Vaccine Aged Out No longe r eligible based on patient's age to complete this topic Insurance A[employer]na Medicare Care Teams Whiskey Regauger Relationship Specialty Start Date End Date Nikos Santamaria MD [address] [place] [address] DR[address] [place] PCP - General Internal Medicine 03/12/24
--- OUTSIDE RECORDS SUMMARY | 2025-02-01 14:50 | XMS_ITS ---
Author Organization [facility] Address [address] [place] [address] Care Team Providers Care Consumer Education Specialist Name Role Phone Nikos Santamaria MD Primary Care Provider Unavaila Carlos Fitzgerald [phone] REASON FOR VISIT cancel appt Encounters Encounter Location Date Provider Diagnosis [facility] [address] [place] [address] 03/13/2024 Carlos Dykes Plan Of Treatment No Information Progress Notes * MICHAEL SCHNEIDERDOB:1945 (78 yo M)Acc No.[id number]:03/13/2024 Patient:?MICHAEL SCHNEIDER :1945???Age:78 Y???Sex:Male Address:[address] [place], [address] * true * Date:? Generated for Ciarrai marysol/Kim/eTransmitting on:?02/01/2025 02:49 PM EDT
[2025-02-01 15:03] VITALS: BP 110/68; PULSE 69; TEMP 36.6; O2SAT 98; BMI 20.3
== END 2025-02-01 15:42 | disposition home or self-care (01) ==
LOC: HO.HMCHD 14:47
PROVIDERS: PCP Internal Medicine; Visit Provider Internal Medicine
DX: K21.00 Gastro-esophageal reflux disease with esophagitis, without bleeding (principal); R97.20 Elevated prostate specific antigen [PSA]; Z00.00 Encounter for general adult medical examination without abnormal findings

== ENCOUNTER 2025-02-11 13:38 | Outpatient (AMB) | payer MEDICARE, SELFPAY ==
--- NOTE | 2025-02-11 12:19 | HO.NEPHOV_ITS ---
Intake Visit Reasons: CKD/ Transf care from Dr Avendano at [facility]/ Conf Allergies pollen extracts Allergy (Verified 02/01/25 15:37) Unknown [facility] Medical History Enlarged prostate Surgical History H/O colonoscopy (~12/17/22) Family History Mother No problems noted. Father No problems noted. Social History Household Members: Spouse Household Members Other:: patient not verbally responding so all info from Housing: House Do you presently have visiting nurse or other home services: No Comment: sitter for safety Patient Tobacco Use Status: Never used Tobacco e-Cigarette/Vaping Use: Never Used service: No Current occupational status: retired Cognitive needs: No Hearing needs: No Vision needs: Yes (rx glasses) Results Reviewed Nephrology Results: Hgb 14.2 g/dl (14.0-18.0) 02/01/25 WBC 7.0 X10*3/uL (4.8-10.8) 02/01/25 Plt Count 228 X10*3/uL (160-400) 02/01/25 Sodium 139 mmol/L (135-145) 02/01/25 Potassium 4.8 mmol/L (3.3-5.1) 02/01/25 Chloride 107 mmol/L (96-108) 02/01/25 Carbon Dioxide 27 mmol/L (22-29) 02/01/25 BUN 32 mg/dL (9-16) H 02/01/25 Creatinine 1.36 mg/dL (0.5-1.4) 02/01/25 Calcium 9.2 mg/dL (8.4-10.2) 02/01/25 Urine Protein Negative mg/dL (Neg-Trace) 02/01/25 Renal US 05/12/24 Coding
--- NOTE | 2025-02-11 13:32 | HO.NEPHOV_ITS ---
Vital Signs 02/11/25 13:40 02/11/25 14:19 Height 5 ft 6 in Weight 128 lb BMI 20.7 BP 82/60 L 96/60 Blood Pressure Location Lt brachial Position Sitting Pulse 80 Pulse Source Pulse Oximeter Pulse Oximetry (%) 98 Oxygen Delivery Method Room Air Intake Visit Reasons: CKD/ Transf care from Dr Avendano at [facility]/ Conf Intake Note: Patient taking Iron pills OTC not sure of the those. Certified Ophthalmic Technician Required: No Accompanied by: Self / Same As Patient Allergies pollen extracts Allergy (Verified 02/11/25 13:42) Unknown Do you need a note to return to daycare/school/sports/work: No HPI Comments Details: Mode Fall 79 years old gentleman with past medical history of BPH status post GreenLight laser enucleation by Dr. 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 here with his his urination is much better after Greenlight laser wakes up 1 or 2 times in the [facility] Medical History Enlarged prostate Surgical History H/O colonoscopy (~12/17/22) Family History Mother No problems noted. Father No problems noted. Social History Household Members: Spouse Household Members Other:: patient not verbally responding so all info from Housing: House Do you presently have visiting nurse or other home services: No Comment: sitter for safety Patient Tobacco Use Status: Never used Tobacco e-Cigarette/Vaping Use: Never Used service: No Current occupational status: retired Cognitive needs: No Hearing needs: No Vision needs: Yes (rx glasses) Review of Systems Const Details: Const Denies body aches, Denies chills, Denies excessive sweating and Denies fatigue Eyes Denies blurry vision and Denies change in vision ENT Denies bleeding gums and Denies change in voice Card Denies chest pain and Denies leg ulcers Resp Denies cough and Denies excessive phlegm production GI Denies abdominal pain and Denies bloating Denies hematuria, Denies urinary frequency and Denies difficulty voiding Musc Denies abnormal gait Neuro Denies Neuro-related abnormal movements, Denies abnormal gait and Denies behavioral changes Psych Denies behavioral changes and Denies change in appetite Endo Denies change in body appearance, Denies cold intolerance, Denies excessive sweating and Denies fatigue Physical Exam General: Not in any acute distress, comfortable, sitting on the chair Nutritional Appearance: well nourished and overweight Eyes: appearance normal, both eyes and all related structures; Alignment and Position: alignment normal and position normal Neck: No lymphadenopathy, no thyromegaly Resp: bilateral air entry equal, no added sounds present Cardio: Regular rate, regular rhythm; Heart sounds: S1 normal heart sound present and S2 normal heart sound present, no edema GI: soft, nontender, no guarding, no hepatosplenomegaly : bladder normal to inspection, bladder normal to palpation, no renal angle tenderness Skin: no rashes or lesions noted and elasticity normal Neuro: oriented to person, oriented to place, oriented to time and moves all extremities Results Reviewed Nephrology Results: Hgb 14.2 g/dl (14.0-18.0) 02/01/25 WBC 7.0 X10*3/uL (4.8-10.8) 02/01/25 Plt Count 228 X10*3/uL (160-400) 02/01/25 Sodium 139 mmol/L (135-145) 02/01/25 Potassium 4.8 mmol/L (3.3-5.1) 02/01/25 Chloride 107 mmol/L (96-108) 02/01/25 Carbon Dioxide 27 mmol/L (22-29) 02/01/25 BUN 32 mg/dL (9-16) H 02/01/25 Creatinine 1.36 mg/dL (0.5-1.4) 02/01/25 Calcium 9.2 mg/dL (8.4-10.2) 02/01/25 Urine Protein Negative mg/dL (Neg-Trace) 02/01/25 Renal US 05/12/24 Assessment & Plan Assessment & Plan (1) Reflux esophagitis: Code(s): K21.00 - Gastro-esophageal reflux disease with esophagitis, without bleeding Category: Medical Qualifiers: Esophagitis bleeding: without hemorrhage Qualified Code(s): K21.00 - Gastro-esophageal reflux disease with esophagitis, without bleeding Plan: See below (2) Hydronephrosis: Code(s): N13.30 - Unspecified hydronephrosis Category: Medical Plan: See below (3) Urinary urgency: Code(s): R39.15 - Urgency of urination Category: Medical Plan: See below (4) Acute UTI: Code(s): N39.0 - Urinary tract infection, site not specified Category: Medical Plan: See below (5) Elevated PSA: Code(s): R97.20 - Elevated prostate specific antigen [PSA] Category: Medical Plan: See below (6) BPH loc w urin obs/LUTS: Code(s): N40.1 - Benign prostatic hyperplasia with lower urinary tract symptoms Category: Medical Plan: See below Plan BPH, obstructive uropathy: Creatinine down to 1.36 with GFR 52, electrolytes stable, no anemia. Has history of bilateral hydronephrosis with obstructive uropathy from BPH in the past Continue finasteride. Voiding education given to the patient Encouraged adequate fluid intake at least 10 cups everyday Complex renal cyst: Bosniak 2F 6 cm cyst seen in upper pole of left kidney in the ultrasound and the CT scan Patient has an appointment with urology next month, asked him to discuss about next imaging Was prescribed iron pills by previous sales trader, currently his hemoglobin is 14.2. We will stopped the and pills and repeat I and profile before next visit CBC, BMP, and profile and vitamin D levels ordered for labs prior to next visit Orders: Orders Basic Metabolic Panel 6 Months N13.30 - Unspecified hydronephrosis Complete Blood Count Auto Diff 6 Months N13.30 - Unspecified hydronephrosis, R39.15 - Urgency of urination IRON PROFILE 6 Months N13.30 - Unspecified hydronephrosis, N40.1 - Benign prostatic hyperplasia with lower urinary tract symptoms, R35.1 - Nocturia Vitamin D 25-OH Total 6 Months N13.30 - Unspecified hydronephrosis, N39.0 - Urinary tract infection, site not specified, R39.15 - Urgency of urination Coding Level of Care Code New Pt Level 3 (83901) Diagnoses Gastroesophageal reflux disease with esophagitis without hemorrhage K21.00 Esophagitis bleeding: without hemorrhage Hydronephrosis N13.30 Urinary urgency R39.15 Acute UTI N39.0 Elevated PSA R97.20 BPH loc w urin obs/LUTS N40.1
[2025-02-11 13:40] VITALS: BP 82/60; PULSE 80; O2SAT 98; BMI 20.7
--- OUTSIDE RECORDS SUMMARY | 2025-02-11 13:49 | XMS_ITS | Clinical Summary ---
Author Organization [facility] Address [address] [address] Phone Care Team Providers Care Spanish Tutor Name Role Phone Nikos Santamaria MD Primary Care Provider [phone] Allergies No known active allergies Medications Cyanocobalamin [...] [facility] [address] [address] Nilesh Avendano MD [address] [phone] Health Maintenance Due Date Last Done Comments Influenza Vaccine (Season Ended) 2025 07/15/2014, 07/11/2012 Pneumococcal Vaccine: 50+ Years Completed 12/03/2019, 05/01/2013 Hepatitis B Vaccine Aged Out No longe r eligible based on patient's age to complete this topic Insurance A[employer] Medicare Care Teams Spanish Tutor Relationship Specialty Start Date End Date Nikos Santamaria MD [address] [place] [address] DR[address] [place] PCP - General Internal Medicine 03/12/24
[2025-02-11 14:19] VITALS: BP 96/60
== END 2025-02-11 14:16 | disposition home or self-care (01) ==
LOC: HO.HKA 13:39
PROVIDERS: PCP Internal Medicine; Visit Provider Internal Medicine Critical Care Medicine
DX: K21.00 Gastro-esophageal reflux disease with esophagitis, without bleeding (principal); N13.30 Unspecified hydronephrosis; R39.15 Urgency of urination; N40.1 Benign prostatic hyperplasia with lower urinary tract symptoms; N39.0 Urinary tract infection, site not specified; R97.20 Elevated prostate specific antigen [PSA]
CPT/HCPCS: 99203

== ENCOUNTER → 2025-02-11 13:38 | Outpatient (BNVA) | payer MEDICARE, SELFPAY | PROVIDERS: PCP Internal Medicine; Visit Provider Internal Medicine Critical Care Medicine | DX: N40.1 Benign prostatic hyperplasia with lower urinary tract symptoms (principal); N13.30 Unspecified hydronephrosis; N39.0 Urinary tract infection, site not specified; R39.15 Urgency of urination; K21.00 Gastro-esophageal reflux disease with esophagitis, without bleeding; R97.20 Elevated prostate specific antigen [PSA] | CPT/HCPCS: 99202 ==

== ENCOUNTER 2025-03-19 13:08 | Outpatient (AMB) | payer MEDICARE, SELFPAY ==
--- OUTSIDE RECORDS SUMMARY | 2025-03-19 13:42 | XMS_ITS | Clinical Summary ---
Author Organization [facility] Address [address] [address] Phone Care Team Providers Care Wire Technician Name Role Phone Nikos Santamaria MD Primary Care Provider [phone] Allergies No known active allergies Medications Cyanocobalamin [...] for a referral back to Dr. Burnham. Hypercholesterolemia 02/03/2018 024 Overview (11/08/2023): Last Assessment & [...] Mass Index - - Plan of Treatment Health Maintenance Due Date Last Done Comments Influenza Vaccine (Season Ended) 2025 07/15/2014, 07/11/2012 Pneumococcal Vaccine: 50+ Years Completed 12/03/2019, 05/01/2013 Hepatitis B Vaccine Aged Out No longe r eligible based on patient's age to complete this topic Insurance A[employer]na Medicare Care Teams Wire Technician Relationship Specialty Start Date End Date Nikos Santamaria MD [address] [place] [address] [address] [place] PCP - General Internal Medicine 03/12/24
--- NOTE | 2025-03-19 13:48 | MHC.OFFVIS ---
Intake Visit Reasons: Late 6m/PSA/PVR Intake Note: Patient is present for 6M/PSA/PVR Urology Medication:FINASTERIDE,VITAMIN B12 Antibiotic Allergy:NONE Blood Thinner:NONE TODAY'S PVR:0ML'S Metal Sprayer Machined Parts Required: No Allergies pollen extracts Allergy (Verified 03/19/25 13:49) Unknown HPI Comments Details: Juan David is a very present Malay male. He is a patient Dr. Santamaria. He is seen for the following urologic conditions - elevated PSA - lower urinary tract symptoms Last seen April 2024 Has remained on finasteride PSA has always remained elevated - 5.8 Known large prostate on prior imaging Ultrasound with bilateral kidney stones and cyst on left kidney Significant stone burden left side UA positive blood Organize CT scan to review stone burden with aim to intervene 03/16 Cr 1.7, 02/14 1.35 01/14 GreenLight laser prostatectomy for elevated creatinine and retention Elevated PSA and lower urinary tract symptoms Longstanding elevated PSA Prior PSA 2018 6.4, 07/14 6.2, 02/11 5.9 25% Prior evaluation with Urology in recommendation for prostate biopsy Has concurrent lower urinary tract symptoms Urinary urgency with nocturia Weak stream ASHA 3+ prostate Had admission to [facility] with retention and elevated creatinine. Improved with Barakat catheter. 120 g prostate on prior imaging PFSH Medical History Enlarged prostate Surgical History H/O colonoscopy (~12/17/22) Family History Mother No problems noted. Father No problems noted. Social History Household Members: Spouse Household Members Other:: patient not verbally responding so all info from Housing: House Do you presently have visiting nurse or other home services: No Comment: sitter for safety Patient Tobacco Use Status: Never used Tobacco e-Cigarette/Vaping Use: Never Used service: No Current occupational status: retired Cognitive needs: No Hearing needs: No Vision needs: Yes (rx glasses) Review of Systems Const Denies chills and Denies fever(s) Card Reports no additional complaints and Denies syncope Resp Denies cough GI Denies abdominal pain and Denies heartburn Reports as per HPI and Denies change in libido Neuro Denies syncope Psych Denies change in libido Endo Denies change in libido Physical Exam Const General: cooperative, healthy appearing, comfortable and no acute distress Orientation/consciousness: patient oriented x3 HEENT Face and sinus: Yes normal facial exam Mouth: moist mucous membranes Neck Neck: Yes normal visual inspection, Yes full ROM and Yes trachea midline Chest Chest palpation & inspection: normal inspection of the chest Resp Effort & Inspection: normal respiratory effort, able to speak in complete sentences and no respiratory distress GI Inspection: Yes normal to inspection Back/Spine/Pelvis Cervical Spine: normal cervical lordosis Thoracic/Lumbar Spine: thoracic and lumbar spine normal to inspection Skin General skin exam: no rashes or lesions noted Neuro General: patient oriented x3, gait normal, tone normal and moves all extremities Extrem General: Yes normal to inspection and Yes capillary refill normal Office Procedures Post Void Residual Post Residual Void Post Void Residual (PVR): 0 [id number] Void Residual by ultrasound Assessment & Plan Assessment & Plan (1) Bilateral nephrolithiasis: Code(s): N20.0 - Calculus of kidney Category: Medical Plan Renal imaging for stones and cyst Three-month follow-up for plan on renal intervention Orders: Orders CT kidney stone Today N20.0 - Calculus of kidney AMB Urinalysis Automated Today Z13.9 - Encounter for screening, unspecified Patient Instructions: This note is constructed using voice recognition software. While every effort has been made to ensure accuracy professional volleyball player errors may have been included. Imaging studies, laboratory and physical exam results were discussed and reviewed in detail. No major barriers to patient understanding were identified. An opportunity to ask questions regarding the treatment plan was provided. All questions were answered. The patient expressed understanding and agreement with the above treatment plan. The patient is aware they should contact our office by phone for worsening of their current condition or the appearance of new urologic symptoms. Compliance is encouraged with any medications and followup testing that is ordered. It is a privilege to participate in the urologic care of your patient. If you have any questions or concerns regarding treatment for the above conditions, or other urologic issues, please do not hesitate to contact me. The office telephone contact is [phone]. Sincerely, Dr Fernando Haskins MD, [facility] - Urology Compassionate Specialist Care for the Genitourinary System Coding Level of Care Code Est Pt Level 4 (98019) Diagnoses Bilateral nephrolithiasis N20.0 CPT Codes Post Residual Void - PVR CPT Code: 53781-Wkyz Void Residual by ultrasound ([id number])
== END 2025-03-19 14:43 | disposition home or self-care (01) ==
LOC: HO.HUSH 13:09
PROVIDERS: PCP Internal Medicine; Visit Provider Urology
DX: N20.0 Calculus of kidney (principal); Z13.9 Encounter for screening, unspecified
CPT/HCPCS: 99214

== ENCOUNTER → 2025-03-19 13:08 | Outpatient (BNVA) | payer MEDICARE, SELFPAY | PROVIDERS: PCP Internal Medicine; Visit Provider Urology | DX: N20.0 Calculus of kidney (principal) | CPT/HCPCS: 51798; 81003; 99212 ==

== ENCOUNTER 2025-07-23 14:57 | Outpatient (REF) | payer MEDICARE, SELFPAY ==
--- OUTSIDE RECORDS SUMMARY | 2024-03-17 06:10 | XMS_ITS ---
Author Organization [facility] Address [address] [place] [address] Care Team Providers Care Chief Of Service Name Role Phone Rosalio (RETIRED) Nikos MORILLO Primary Care Provide Carlos Roy [phone] REASON FOR VISIT Patient presents today for gerd Encounters Encounter Location Date Provider Diagnosis [facility] [address] [place] [address] 03/17/2024 Carlos Dykes Plan Of Treatment No Information Progress Notes * WYATT MICHAELDOB:1945 (79 yo M)Acc No.[id number]:03/17/2024 Progress Notes Patient: MICHAEL DUFF Provider: Karen Dykes MD :1945 A ge:78 Y S ex:Male Date:03/17/2024 Address:[address] [place] [address] [place], [place] Pcp:Nikos Santamaria (RETIRED )MD Subjective: * Chief Complaints: * 1 . Patient presents today for gerd. * Medical History: Objective: * Vitals: Assessment: Plan: * Treatment: * * The named appointment provid er may or may not be the originator of this progress note, and it is not deemed complete until electronically signed by the appointment provider. Sign off status: Pending * Provider: Karen Dykes MD Date: 0 03/17/2024 Generated for Vidhi gregg/Fashannang/eTransmitting on: 1 03:22 PM EDT
--- NOTE | ~2025-07-23 | CT_ITS ---
EXAMINATION: CT ABDOMEN AND PELVIS WITHOUT CONTRAST CLINICAL INFORMATION: N20.0 - Calculus of kidney COMPARISON: January 16, 2024 TECHNIQUE: Multidetector volumetric imaging was performed from the superior aspect of the liver through the pubic symphysis. Sagittal and coronal reformatted images were obtained on the technologist's workstation. This CT examination was performed using dose optimization techniques as appropriate, variously including the following: *Automated exposure control *Adjustment of mA and/or kV according to patient size (this includes techniques or standardized protocols for targeted exams where dose is matched to indication/reason for exam; i.e. extremities or head) *Use of iterative reconstruction technique FINDINGS: LUNG BASES: Linear atelectasis or scarring is present in the posterior lung bases. LIVER, GALLBLADDER, AND BILIARY TREE: The liver is normal in size, shape, and attenuation. No focal hepatic lesion or biliary ductal dilatation is present. The gallbladder is unremarkable with no evidence of radiopaque gallstones, gallbladder wall thickening, or obvious pericholecystic inflammatory changes. PANCREAS: Unremarkable. SPLEEN: Unremarkable. ADRENAL GLANDS: Unremarkable. KIDNEYS AND URETERS: Again seen is a complex cystic mass in the superior pole left kidney measuring 4.8 x 6.4 cm, previously 4.1 x 6.0 cm (AP by transverse). There is a possible solid components laterally. There is a lateral hairline thin septation with coarse calcification anteriorly. There are several stones in the left kidney with possible developing staghorn calculus in the lower pole measuring up to 2.1 cm long axis. There are multiple calcifications in the right kidney, likely representing stones, increased since the prior. The largest is in the lower pole measuring 3.9 mm. There is no hydronephrosis. BLADDER: Again seen is diffuse bladder wall thickening, more pronounced anteriorly. GASTROINTESTINAL TRACT: The small and large bowel are unremarkable. The appendix is unremarkable. ABDOMINAL WALL: No significant hernia is appreciated. LYMPH NODES: Normal. VASCULAR: Unremarkable. PELVIC VISCERA: Unremarkable. OSSEOUS STRUCTURES: Degenerative endplate changes are present in the mid lumbar spine CT/CT kidney stone IMPRESSION: Enlarging indeterminate complex cyst of the superior pole left kidney. Follow-up MRI without and with IV contrast. Numerous enlarging stones are present in both kidneys likely with a developing staghorn calculus in the lower pole left kidney. There is chronic diffuse bladder wall thickening, more pronounced anteriorly. This could relate to cystitis or other chronic abnormality. Fleischner guidelines were followed. Electronically signed by: Elia Terrazas MD 07/23/2025 03:49 PM EDT RP
[2025-07-23 15:11] LABS: MANUAL DIFF FLAG NO
--- OUTSIDE RECORDS SUMMARY | 2025-07-23 15:21 | XMS_ITS | Encounter Summary ---
Author Organization [facility] Address [address] [place] [address] Phone Care Team Providers Care Condenser Operator Name Role Phone Jonn Smith DO Primary Care Provider [phone] Bubba Wyman MD Primary Care Provider [phone] Jonn Smith DO Primary Care Provider [phone] Pcp, Unknown Primary Care Provider Unavailabl e Encounter Details Date Type Department Care Team (Latest Contact Info) Description 11/20/2017 Transcribe Orders [facility] [address] [place] [address] [place] [address] Rip Burnham MD [address] [place] [address], [address] [place] [phone] [email or web address] Renal cyst (Primary Dx) Social History Tobacco Use Types Packs/Day Years Used Date Smoking Tobacco: Never Assessed Sex and Gender Information Value Date Recorded Sex Assigned at Male 02/03/2018 1:30 PM EDT Legal Sex Male 10:06 PM EDT Gender Identity Male 02/03/2018 1:30 PM EDT Sexual Orientation Straight 02/03/2018 1: 30 PM EDT documented as of this encounter Plan of Treatment Not on file documented as of this encounter Results * Creatinine/eGFR (11/20/2017 8:24 AM EST) CREATININE 0.90 0.5 - 1.5 mg/dL [facility] EGFR >60 mL/min/1.7 3m2 [facility] Comment:Abnormal if <60. If patient is -Libyan, multiply the result by 1.21. Blood 11/20/2017 8:24 AM EST 11/20/2017 8:26 AM EST us Rip Burnham MD LAB BLOOD ORDERABLES Final Res ult Performing Organization Address City/[facility] Co de Phone Number [address] [address] * BUN (11/20/2017 8:24 AM EST) BUN 12 6 - 19 mg/dL [facility] Blood 11/20/2017 8:24 AM EST 11/20/2017 8:26 AM EST Rip Burnham MD LAB BLOOD ORDERABLES Final Res ult Performing Organization Address [facility] de Phone Number [address] [phone] documented in this encounter Visit Diagnoses Diagnosis Renal cyst- Primary Unspecified congenital cystic kidney disease documented in this encounter Care Teams Condenser Operator Relationship Specialty Start Date End Date Jonn Smith DO [address] [address] [email or web address] PCP - General 09/26/17 12/08/17 Bubba Wyman MD [address] [address] [email or web address] PCP - General Family Medicine 12/09/17 07/12/19 Jonn Smith DO [address] [address] [email or web address] PCP - General Family Medicine 07/13/19 11/25/22 Pcp, Unknown PCP - General 11/26/22 documented as of this encounter Additional Source Comments The information contained in this document represents components of the legal health record. It is not the complete legal health record.[facility]
--- OUTSIDE RECORDS SUMMARY | 2025-07-23 15:21 | XMS_ITS | Encounter Summary ---
Author Organization [facility] Address [address] [place] [address] Phone Care Team Providers Care Transition Lead Name Role Phone Jonn Smith DO Primary Care Provider [phone] Bubba Wyman MD Primary Care Provider [phone] Jonn Smith DO Primary Care Provider [phone] Pcp, Unknown Primary Care Provider Unavailabl e Encounter Details Date Type Department Care Team (Latest Contact Info) Description 11/12/2017 Transcribe Orders [facility] [address] [place] [address] [place] [address] Rip Burnham MD [address] [place] [address], [address] [place] [address] [id number] [email or web address] Encounter for screening for malignant neoplasm of prostate (Primary Dx) Social History Tobacco Use Types [...] documented as of this encounter Results * (ABNORMAL) PSA (screening) (11/12/2017 8:37 AM EST) PSA 5.17(H) 0 - 4.00 ng/mL [facility] Blood 11/12/2017 8:37 AM EST 11/12/2017 8:39 AM EST us Rip Burnhma MD LAB BLOOD ORDERABLES Final Res ult [facility] [address] [place] [address] documented in this encounter Visit Diagnoses Diagnosis Encounter for screening for malignant neoplasm of prostate- Primary documented in this encounter Care Teams Transition Lead Relationship Specialty Start Date End Date Jonn Smith DO [address] [facility], [facility] [address] [place] [address] [email or web address] PCP - General 09/26/17 12/08/17 Bubba Wyman MD [address] [place] [address] [address] [place] [address] [email or web address] PCP - General Family Medicine 12/09/17 07/12/19 Jonn Smith DO [address] [place] [address], [facility] [address] [place] [address] PCP - General Family Medicine 07/13/19 11/25/22 Pcp, Unknown PCP - General 11/26/22 documented as of this encounter Additional Source Comments The information contained in this document represents components of the legal health record. It is not the complete legal health record.[facility]
--- OUTSIDE RECORDS SUMMARY | 2025-07-23 15:22 | XMS_ITS | Clinical Summary ---
Author Organization [facility] Address [address] [place] [address] Care Team Providers Care Client Analyst Name Role Phone Bubba Wyman MD Primary Care Provider [phone] Allergies No known active allergies Medications Medication [...] 1-dose 75+ series) 2022 Influenza Vaccine (#1) 2025 Hepatitis B Vaccines Aged Out No long er eligible based on patient's age to complete this topic RSV Ped < 20 months Aged Out No longe r eligible based on patient's age to complete this topic Care Teams Client Analyst Relationship Specialty Start Date End Date Bubba Wyman MD [address] [place] [address] [place] [id number] PCP - General Family Medicine 01/17/18
--- OUTSIDE RECORDS SUMMARY | 2025-07-23 15:22 | XMS_ITS | Encounter Summary ---
Author Organization [facility] Address [address] [place] [address] Phone Care Team Providers Care Dishtank Operator Name Role Phone Jonn Smith DO Primary Care Provider Bubba Wyman MD Primary Care Provider [phone] Jonn Smith DO Primary Care Provider [phone] Pcp, Unknown Primary Care Provider Unavailabl e Reason for Referral * MRI/CAT Scan - Closed Specialty Diagnoses / Procedures Referred By Lexy rdz Referred To Contact Radiology Diagnoses Simple renal cyst Procedures CT Abdomen Only (No Pelvis) Rip Burnham MD Phone: tel: fax: [email or web address] Referral ID Status Reason Start Date Expiration Date Visits Re quested Visits Authorized [id number] Closed 11/20/2017 01/18/2018 1 1 Encounter Details Date Type Department Care Team (Late st Contact Info) Description 11/25/2017 Ancillary Orders Virtual Department [address] [place] [address] Rip Burnham MD [address] [place] [address], [address] [place] [address] [email or web address] Simple renal cyst Social History Tobacco Use Types Packs/Day Years [...] documented as of this encounter Results * CT ABDOMEN WITH AND WITHOUT CONTRAST (12/09/2017 9:00 AM EDT) Anatomical Region Laterality Modality Abdomen, Abdominal Vasculature C omputed Tomography 12/09/2017 8:55 AM EDT Impressions 12/09/2017 9:08 AM EDT Mild increase in size of the Bosniak 2F left upper renal pole cyst. TOTAL CTDIvol: 10.9 mGy POS - [id number] Narrative 12/09/2017 9:08 AM EDT COMPARISON: Renal ultrasound 05/10/[address] abdomen pelvis 11/02/2016. TECHNIQUE: CT abdomen with and without IV contrast and no oral contrast scanning was obtained from dome of the liver to the iliac crests. Sagittal and coronal reformats generated. Automated exposure control utilized. CT ABDOMEN FINDINGS: Lung bases/heart: Imaged heart is normal. Stable bibasilar dependent atelectasis and left lower lobe linear scarring. Spleen: Normal. Liver: Normal. Gallbladder/biliary tree: Normal. Pancreas: Normal. Adrenal glands: Stable mild bilateral thickening. No masses. Vasculature: Stable moderate diffuse abdominal aortic calcium plaque and mural thrombus. No AAA or acute findings. Genitourinary: Kidneys are normal in size and shape. No radiopaque urinary tract calculi. Normal renal enhancement. Stable complex left upper renal pole exophytic cyst with heterogeneous linear calcification in the superior cyst contiguous with a thin barely enhancing septation. The cyst measures 5 x 4.1 x 4.3 cm which has mildly increased in size compared with the prior CT abdomen in which it measured up to 4.9 x 3.8 x 4.4 cm in transverse AP and craniocaudad dimensions. No enhancing solid masses. No hydronephrosis. Gastrointestinal tract: Normal. Peritoneum/retroperitoneum: No lymphadenopathy, ascites or fluid collections. Musculoskeletal: Stable mild lumbar spine spondylosis. No destructive lytic or blastic bone lesions. No abdominal wall hernia. Procedure Note Naseem Mclean MD - 12/09/2017 COMPARISON: Renal ultrasound 05/10/[address] abdomen pelvis 11/02/2016. TECHNIQUE: CT abdomen with and without IV contrast and no oral contrastscanning was obtained from dome of the liver to the iliac crests.Sagittal and coronal reformats generated. Automated exposure controlutilized. CT ABDOMEN FINDINGS: Lung bases/heart: Imaged heart is normal. Stable bibasilar dependentatelectasis and left lower lobe linear scarring. Spleen: Normal. Liver: Normal. Gallbladder/biliary tree: Normal. Pancreas: Normal. Adrenal glands: Stable mild bilateral thickening. No masses. Vasculature: Stable moderate diffuse abdominal aortic calcium plaque andmural thrombus. No AAA or acute findings. Genitourinary: Kidneys are normal in size and shape. No radiopaqueurinary tract calculi. Normal renal enhancement. Stable complex leftupper renal pole exophytic cyst with heterogeneous linear calcification inthe superior cyst contiguous with a thin barely enhancing septation. Thecyst measures 5 x 4.1 x 4.3 cm which has mildly increased in size comparedwith the prior CT abdomen in which it measured up to 4.9 x 3.8 x 4.4 cm intransverse AP and craniocaudad dimensions. No enhancing solid masses. Nohydronephrosis. Gastrointestinal tract: Normal. Peritoneum/retroperitoneum: No lymphadenopathy, ascites or fluidcollections. Musculoskeletal: Stable mild lumbar spine spondylosis. No destructivelytic or blastic bone lesions. No abdominal wall hernia. IMPRESSION: Mild increase in size of the Bosniak 2F left upper renal pole cyst. TOTAL CTDIvol: 10.9 mGy POS - [id number] us Rip Burnham MD IMG CT XSPECIALTY ORDERABLES F inal Result documented in this encounter Visit Diagnoses Diagnosis Simple renal cyst Acquired cyst of kidney Simple renal cyst Acquired cyst of kidney documented in this encounter Care Teams Dishtank Operator Relationship Specialty Start Date End Date Jonn Smith DO [address] [place] [address], [address] [place] [address] [email or web address] PCP - General 09/26/17 12/08/17 Bubba Wyman MD [address] [place] [address] [address] [place] [address] [email or web address] PCP - General Family Medicine 12/09/17 07/12/19 Jonn Smith DO [address] [place] [address] [address] [place] [address] [email or web address] PCP - General Family Medicine 07/13/19 11/25/22 Pcp, Unknown PCP - General 11/26/22 documented as of this encounter Additional Source Comments The information contained in this document represents components of the legal health record. It is not the complete legal health record.[facility]
--- OUTSIDE RECORDS SUMMARY | 2025-07-23 15:22 | XMS_ITS | Clinical Summary ---
Author Organization [facility] Address [address] [place] [id number] Care Team Providers Care Substation Wireman Name Role Phone Ethel Martinez MD Primary Care Provider [phone] Family History Relation Name Status Comments Father [...] 2) 1997 Cholesterol Screening (Lipid Panel) 08/26/2022 Falls Risk Assessment 08/26/2022 Hepatitis C Screening 08/26/2022 Social Influencers of Health Screening 08/26/2022 RSV Immunization Adult Patients (1 - 1-dose 75+ series) 2022 Depression Screening 09/23/2024 COVID-19 Vaccine (4 - 2024-2 6 season) 2025 09/06/2021, 01/07/2021, 12/15/2020 Influenza Vaccine (#1) 2025 HIB Vaccines Aged Out No longer [...] age to complete this topic Care Teams Substation Wireman Relationship Specialty Start Date End Date Ethel Martinez MD PCP - General Internal Medicine 07/17/21
--- OUTSIDE RECORDS SUMMARY | 2025-07-23 15:22 | XMS_ITS | Encounter Summary ---
Author Organization [facility] Address [address] [place] [address] [place] [address] Phone Care Team Providers Care Technician Automated Equipment Name Role Phone Jonn Smith DO Primary Care Provider [phone] Bubba Wyman MD Primary Care Provider [phone] Jonn Smith DO Primary Care Provider [phone] Pcp, Unknown Primary Care Provider Unavailabl e Encounter Details Date Type Department Care Team (Late st Contact Info) Description 11/25/2017 Procedure Pass [facility], Ct Scan - [address] [address] Social History Tobacco Use Types Packs/Day Years [...] on file documented as of this encounter Visit Diagnoses Not on filedocumented in this encounter Care Teams Technician Automated Equipment Relationship Specialty Start Date End Date Jonn Smith DO [address] [facility] [address] [place] [address] [email or web address] PCP - General 09/26/17 12/08/17 Bubba Wyman MD [address] [facility] [address] [place] [address] [email or web address] PCP - General Family Medicine 12/09/17 07/12/19 Jonn Smith DO [address] [place] [address] [address] [place] [address] [email or web address] PCP - General Family Medicine 07/13/19 11/25/22 Pcp, Unknown PCP - General 11/26/22 documented as of this encounter Additional Source Comments The information contained in this document represents components of the legal health record. It is not the complete legal health record.[facility]
--- OUTSIDE RECORDS SUMMARY | 2025-07-23 15:22 | XMS_ITS | Clinical Summary ---
Author Organization [facility] Address [address] [place] [address] Phone Care Team Providers Care Student Teacher Name Role Phone Pcp, Unknown Primary Care Provider Unavailabl e Allergies No known active allergies Medications tamsulosin (FLOMAX) 0.4 mg Cp24 1 cap(s) Orally once a day at bed time Active sildenafiL (VIAGRA) 100 mg tabletIndicatio ns:Erectile dysfunction, unspecified erectile dysfunction type Take 1 tablet (100 mg total) by mouth as needed. 1 tablet as needed approximately 1 hour before sexual activity Orally as needed 18 tablet 1 0 Active Active Problems Problem Noted Date Diagnosed Date Routine medical exam 12/03/2019 Assessment & Plan (12/03/2019 1:48 PM EDT): Juan David Coello is a 74 y.o. year old male presenting for his annual physical exam. I reviewed the adult health update form today. he will go for his above lab work and I will update him with the results. he has a healthy diet and exercise regimen. he will follow up in a year for their annual physical exam. he understand and agrees. Erectile dysfunction 12/03/2019 Assessment & Plan (12/03/2019 2:06 PM EDT): I refilled his viagra - to be taken as directed. BPH (benign prostatic hyperplasia) 02/03/2018 Assessment & Plan (12/03/2019 2:05 PM EDT): Juan David has BPH and he will take his medication only as he needs it. He is asking for a referral back to Dr. Burnham. High cholesterol 02/03/2018 Assessment & Plan (12/03/2019 2:00 PM EDT): He is not on any medication for this at this time. He will get his lab work done today. Immunizations Immunization Administration Dates Next Due COVID-19 (Pre-07/15) Pfizer Vaccine, mRNA, PF ,12/15/2020 INFLUENZA, SPLIT VIRUS, TRIVALENT W/ PRESERVATIV E IM 07/15/2014,07/11/2012 Pneumococcal conjugate PCV13 12/03/2019 Pneumococcal polysaccharide PPSV23 05/01/2013 Td, unspecified formulation 01/09/2006 Tdap 02/12/2011 Social History Tobacco Use Types Packs/Day Years Used Date Smoking Tobacco: Never Smokeless Tobacco: Never Alcohol Use Standard Drinks/Week Comments No 0 (1 standard drink = 0.6 oz pur e alcohol) Education Answer Date Recorded Are you interested in more education? Not on lynne e 01/18/2023 Are you concerned about learning? Not on file 01/18/2023 No 01/18/2023 No 01/18/2023 Digital Access Answer Date Recorded No 02/18/2023 No 02/18/2023 No 02/18/2023 Reliable internet access at home? Not on file 02/18/2023 Device with a working camera? Not on file Sex and Gender Information Value Date Recorded Sex Assigned at Male 02/03/2018 1:30 PM EDT Legal Sex Male 10:06 PM EDT Gender Identity Male 02/03/2018 1:30 PM EDT Sexual Orientation Straight 02/03/2018 1: 30 PM EDT Occupation Industry Job Start Date Job End Date retired Not on file Not on file Not on file Last Filed Vital Signs Vital Sign Reading Time Taken Comments Blood Pressure 124/68 12/03/2019 1:32 PM EDT Pulse 102 12/03/2019 1:32 PM EDT Temperature 36.9 C (98.4 F) 12/03/2019 1:32 PM EDT Respiratory Rate 17 02/03/2018 3:43 PM EDT Oxygen Saturation 98% 12/03/2019 1:32 PM EDT Inhaled Oxygen Concentration - - Weight 62.6 kg (138 lb) 12/03/2019 1:32 PM EDT Height 170 cm (5' 6.93 ) 12/03/2019 1:32 PM EDT Body Mass Index 21.66 12/03/2019 1:32 PM EDT Plan of Treatment Health Maintenance Due Date Last Done Comments ZOSTER VACCINES (1 of 2) 1997 DEPRESSION SCREENING 12/02/2020 12/03/2019 Adult Td,Tdap Booster 02/12/2021 02/12/2011 , 01/09/2006 RSV VACCINE (1 - 1-dose 75+ series) 2022 LIPID PANEL 12/02/2024 12/03/2019 INFLUENZA VACCINE (#1) 2025 , 07/11/2012 COVID-19 VACCINE (3 - 2024-2 6 season) 2025 01/07/2021, 12/15/2020 HEPATITIS C SCREENING Completed 12/03/2019 PNEUMOCOCCAL VACCINES (50+ years) Completed 12/03/2019, 05/01/2013 SMOKING STATUS SCREENING (On ce After 26 Yrs) Completed 12/03/2019 HEPATITIS A VACCINES Aged Out No long er eligible based on patient's age to complete this topic HIB VACCINES Aged Out No longer eligi ble based on patient's age to complete this topic MENINGOCOCCAL VACCINES (ACWY) Aged Out No longer eligible based on patient's age to complete this topic MENINGOCOCCAL VACCINES (B) Aged Out N o longer eligible based on patient's age to complete this topic Medical Devices Not on file Procedures Procedure Name Priority Date/Time Associated Diagnosis Comments LIPID PANEL Routine 12/03/2019 2:16 PM EDT High cholesterol Routine medical exam HEPATITIS C ANTIBODY, QUALITATIVE Routine 12/03/2019 2:16 PM EDT Screening for condition Routine medical exam from Last 3 Months or Most Recently Relevant to Health Maintenance Results * Hepatitis C antibody, qualitative (12/03/2019 2:16 PM EDT) HCV NON-REACTIV E NON-REACTI VE [facility] Blood 12/03/2019 2:16 PM EDT 12/03/2019 2:19 PM EDT Jonn Smith DO LAB BLOOD ORDERABLES Final Resul t Performing Organization Address [facility] Co de Phone Number [address] [address] * Lipid panel (12/03/2019 2:16 PM EDT) HDL 47 mg/dL [facility] Comment: Interpretation <40 mg/dL: Low HDL cholesterol (major risk factor for CHD) Greater than or equal to 60 mg/dL: High HDL cholesterol ( negative risk factor for CHD) HDL - cholesterol is affected by a number of factors, e.g. smoking, excerise, hormones, sex and age. CHOLESTEROL 177 0 - 240 mg/dL [facility] TRIGLYCERIDES 99 30 - 160 mg/dL [facility] LDL 110 50 - 129 mg/dL [facility] Comment: LDL levels in terms of risk for coronary heart disease: <100 mg/dL: Optimal 100-129 mg/dL: Near or above optimal 130-159 mg/dL: Borderline high 160-189 mg/dL: High >190 mg/dL: Very High CARDIAC RISK RATIO 3.8 3.4 - 5.0 C [facility] Blood 12/03/2019 2:16 PM EDT 12/03/2019 2:19 PM EDT Jonn Smith DO LAB BLOOD ORDERABLES Final Resul t Performing Organization Address [facility] Co de Phone Number [address] [address] from Last 3 Months or Most Recently Relevant to Health Maintenance Insurance [employer] PPO MEDICARE REPLACEMENT AETNA O MEDICARE REPLACEMENT AETNA [facility] MEDICARE REPLACEMENT AETNA [facility] MEDICARE REPLACEMENT [facility] MEDICARE REPLACEMENT [facility] MEDICARE REPLACEMENT [facility] MEDICARE REPLACEMENT AETNA O MEDICARE REPLACEMENT AETNA [facility] MEDICARE REPLACEMENT Care Teams Student Teacher Relationship Specialty Start Date End Date Pcp, Unknown PCP - General 11/26/22 Additional Source Comments The information contained in this document represents components of the legal health record. It is not the complete legal health record.[facility]
--- OUTSIDE RECORDS SUMMARY | 2025-07-23 15:22 | XMS_ITS | Encounter Summary ---
Author Organization [facility] Address [address] [place] [address] Phone Care Team Providers Care Retail Client Solutions Analyst Name Role Phone Bubba Wyman MD Primary Care Provider [phone] Jonn Smith DO Primary Care Provider Pcp, Unknown Primary Care Provider Unavailabl e Reason for Referral * MRI/CAT Scan - Closed Specialty Diagnoses / Procedures Referred By Lexy rdz Referred To Contact Radiology Diagnoses Cyst of kidney, acquired Procedures CT Abdomen Only (No Pelvis) Rip Burnham MD Phone: tel: fax: mailto:[email or web address] Referral ID Status Reason Start Date Expiration Date Visits Re quested Visits Authorized [id number] Closed 12/26/2018 12/26/2019 1 1 Encounter Details Date Type Department Care Team (Latest Contact Info) Description 12/26/2018 Transcribe Orders Virtual Department [address] [place] [address] Rip Burnham MD [facility], [address] [place] [address] [email or web address] Cyst of kidney, acquired (Primary Dx) Social History Tobacco Use Types [...] * CT ABDOMEN WITH AND WITHOUT CONTRAST (02/18/2019 4:05 PM EDT) Anatomical Region Laterality Modality Abdomen, Abdominal Vasculature C omputed Tomography 02/18/2019 4:53 PM EDT Impressions 02/18/2019 5:19 PM EDT The exophytic septated cyst in the upper pole of the left kidney is stable and has a high likelihood of being benign. No other significant changes. TOTAL CTDIvol: 16.40 mGy POS - [id number] Narrative 02/18/2019 5:19 PM EDT HISTORY: Follow-up cystic mass in left kidney. Abnormal previous exam. COMPARISON:CT abdomen 12/09/2017. Centimeters 05/10/2017. TECHNIQUE: Water is used as an oral contrast agent. Precontrast views are obtained through the kidneys. Intravenous contrast is then administered and scanning of the abdomen obtained at ninety seconds. Multiplanar reformatted images obtained. Automated exposure control utilized. : No perinephric collections. No perinephric fat. The exophytic cyst with lobular margins within the upper pole of the left kidney is stable in size and configuration. Septations within the superior portion of the cyst are again faintly visible. These do not appear thick on CT. The mass does not appear to demonstrate enhancement. No evidence of new renal masses. There may be at least one punctate calculus within the right kidney no pelvocaliectasis. Both kidneys enhance normally. Proximal ureters normal in caliber. Adrenals: No abnormalities demonstrated. Liver/spleen: Liver appears normal. Spleen appears normal. Pancreas/biliary tree: Pancreas appears normal. No evidence of biliary ductal dilatation. GI: No marked bowel distention or evidence of bowel wall thickening. No free air. Lymph nodes/lymphatics: No measurable lymphadenopathy. Cardiovascular: No significant changes. Similar atherosclerotic changes within the infrarenal abdominal aorta. Lower hemithoraces: Mild dependent atelectasis within the lower lung randhawa. Musculoskeletal: No evidence of suspicious lytic or blastic lesions within the bones. Procedure Note Camilo Evans MD - 02/18/2019 HISTORY: Follow-up cystic mass in left kidney. Abnormal previousexam. COMPARISON:CT abdomen 12/09/2017. Centimeters 05/10/2017. TECHNIQUE: Water is used as an oral contrast agent. Precontrast views areobtained through the kidneys. Intravenous contrast is then administeredand scanning of the abdomen obtained at ninety seconds. Multiplanarreformatted images obtained. Automated exposure control utilized. : No perinephric collections. No perinephric fat. The exophytic cystwith lobular margins within the upper pole of the left kidney is stable insize and configuration. Septations within the superior portion of thecyst are again faintly visible. These do not appear thick on CT. Themass does not appear to demonstrate enhancement. No evidence of new renalmasses. There may be at least one punctate calculus within the rightkidney no pelvocaliectasis. Both kidneys enhance normally. Proximalureters normal in caliber. Adrenals: No abnormalities demonstrated. Liver/spleen: Liver appears normal. Spleen appears normal. Pancreas/biliary tree: Pancreas appears normal. No evidence of biliaryductal dilatation. GI: No marked bowel distention or evidence of bowel wall thickening. Nofree air. Lymph nodes/lymphatics: No measurable lymphadenopathy. Cardiovascular: No significant changes. Similar atherosclerotic changeswithin the infrarenal abdominal aorta. Lower hemithoraces: Mild dependent atelectasis within the lower lungfields. Musculoskeletal: No evidence of suspicious lytic or blastic lesionswithin the bones. IMPRESSION: The exophytic septated cyst in the upper pole of the left kidney is stableand has a high likelihood of being benign. No other significantchanges. TOTAL CTDIvol: 16.40 mGy POS - [id number] Rip Burnham MD IMG CT XSPECIALTY ORDERABLES F inal Result documented in this encounter Visit Diagnoses Diagnosis Cyst of kidney, acquired- Primary Acquired cyst of kidney Cyst of kidney, acquired Acquired cyst of kidney documented in this encounter Care Teams Retail Client Solutions Analyst Relationship Specialty Start Date End Date Bubba Wyman MD [email or web address] PCP - General Family Medicine 12/09/17 07/12/19 Jonn Smith DO [address] [place] [address], [address] [place] [address] [email or web address] PCP - General Family Medicine 07/13/19 11/25/22 Pcp, Unknown PCP - General 11/26/22 documented as of this encounter Additional Source Comments The information contained in this document represents components of the legal health record. It is not the complete legal health record.[facility]
--- OUTSIDE RECORDS SUMMARY | 2025-07-23 15:22 | XMS_ITS | Patient Health Record ---
Author Organization [facility] Address [address] [place] [address] Care Team Providers Care Insight Director Name Role Phone Rosalio (RETIRED) Nikos MORILLO Primary Care Provide Carlos Roy Unavailable [phone] Allergies Allergen (clinical drug ingredient) Drug/Non Drug Allergy documented on EMR Reaction Allergy Type Onset Date Status Pollen Pollen Unknown Allergy Active Reason For Referral No Information Medications Medication SIG (Take, Route, Frequency, Duration) Notes Start Date End Date Status Doxazosin Mesylate 4 MG Oral; Duration: 90 Uses rarely Active Finasteride 5 MG Oral; Duration: 90 Uses rarely Active Vitamin D (Cholecalciferol) 25 MCG (1000 UT) 1 capsule Orally Once a day; Duration: 30 day(s) Active Vitamin B 12 500 MCG 1 tablet Orally Onc e a day; Duration: 30 day(s) Active Immunizations Vaccine Route Administration [...] 1 Interpretation Negative Section Notes: Came from [place] in 1982 Vegetarian Problems Problem Type SNOMED Code ICD Code Onset Dates Problem Status W/U Status Risk Notes Problem Colon cancer screening (641569347) Colon cancer screening (Z12.11) Active confirmed Problem History of adenomatous polyp of colon (566056576) History of adenomatous polyp of colon (Z86.010) Active confirmed Problem Diverticular disease of colon (563725568) Diverticulosis of large intestine without perforation or abscess without bleeding (K57.30) Active confirmed Problem Preprocedural examination (037185047856255) Preprocedural examination (Z01.818) Active confirmed Plan Of Treatment Future Test Test Name Order Date COLONOSCOPY 11/16/2022 Insurance Providers Payer Name Payer Address Payer Phone Subscriber Number Group Number Insured Name Patient Relationship to Insured Coverage Start Date Coverage End Date [facility] [address] [address] [place] [address] [phone] [id number] MICHAEL SCHNEIDER Self - patient is the insured Medical (General) History Medical History History ICD Code Enlarged prostate Colon polyps removed in 2003 in [place], [place]; he had 2 negative followup colonoscopies in 2006 and 2009 in [place] Denies CO,DM,CVA,Lung disease,renal dise ase Surgical History Surgery Date(Month/Year)
[2025-07-23 15:37] LABS: Hematocrit 43.8 % (42.0-52.0); Hemoglobin 14.1 g/dl (14.0-18.0); Imm Gran Abs Auto 0.01 X10*3/uL (0.00-0.03); Imm Gran Pct Auto 0.2 % (0.0-0.4); Lymphocytes Absolute Auto 0.7 X10*3/uL (1.2-4.9); Mean Corpuscular HGB Conc 32.2 g/dl (31.0-36.0); Mean Corpuscular Hemoglobin 31.5 pg (27.0-33.0); Mean Corpuscular Volume 97.8 fL (80.0-98.0); NRBC Abs Auto 0.000 X10*3/uL (0.0-0.012); NRBC Pct Auto 0.0 /100WBC (0.0-0.2); Platelet Count 226 X10*3/uL (160-400); Red Blood Count 4.48 X10*6/uL (4.60-5.80); White Blood Count 4.6 X10*3/uL (4.8-10.8)
[2025-07-23 15:52] LABS: Anion Gap 11 (12-20); Blood Urea Nitrogen 24 mg/dL (9-16); Calcium 8.8 mg/dL (8.4-10.2); Carbon Dioxide 28 mmol/L (22-29); Chloride 106 mmol/L (96-108); Estimated Glomerular Filt Rate 50; Iron 105 mcg/dL (45-160); Percent Iron Saturation 50 % (15-50); Potassium 4.3 mmol/L (3.3-5.1); Sodium 141 mmol/L (135-145); Total Iron Binding Capacity 212 mcg/dL (228-428); Unsaturated Iron Binding 107 ug/dL
== END 2025-07-23 14:58 | disposition home or self-care (01) ==
LOC: HO.CT 14:57
PROVIDERS: Internal Medicine Critical Care Medicine; PCP Student in an Organized Health Care Education/Training Program; Visit Provider Urology
DX: N20.0 Calculus of kidney (principal); N13.30 Unspecified hydronephrosis; R39.15 Urgency of urination; N40.1 Benign prostatic hyperplasia with lower urinary tract symptoms; R35.1 Nocturia; N39.0 Urinary tract infection, site not specified
CPT/HCPCS: 36415; 74176; 80048; 82306; 83540; 85025

== ENCOUNTER → 2025-07-23 15:12 | Outpatient (BNV) | payer MEDICARE, SELFPAY | PROVIDERS: PCP Student in an Organized Health Care Education/Training Program; Visit Provider Radiology Diagnostic Radiology | DX: N28.1 Cyst of kidney, acquired (principal); N20.0 Calculus of kidney | CPT/HCPCS: 74176 ==

== ENCOUNTER 2025-07-30 15:26 | Outpatient (AMB) | payer MEDICARE, SELFPAY ==
--- NOTE | 2025-07-30 15:27 | MHC.OFFVIS ---
Intake Visit Reasons: 3M CT/PVR Intake Note: Patient is Present for Follow Up Urology Medication: Finasteride Antibiotic Allergies: None Blood Thinners: None Sales Applications Engineer Required: No Allergies pollen extracts Allergy (Verified 08/02/25 14:31) Unknown HPI Comments Details: Juan David is a very present [place] male. He is a patient Dr. Santamaria. He is seen for the following urologic conditions - elevated PSA - lower urinary tract symptoms - nephrolithiasis Follow-up CT imaging for nephrolithiasis - significant stone burden - left more significant than right - recommend ureteroscopy bilateral left more significant than right Has remained on finasteride PSA has always remained elevated - 5.8 Known large prostate on prior imaging 03/16 Cr 1.7, 02/14 1.35 01/14 GreenLight laser prostatectomy for elevated creatinine and retention Nephrolithiasis Elevated PSA and lower urinary tract symptoms Longstanding elevated PSA Prior PSA 2018 6.4, 07/14 6.2, 02/11 5.9 25% Prior evaluation with Urology in recommendation for prostate biopsy Has concurrent lower urinary tract symptoms Urinary urgency with nocturia Weak stream ASHA 3+ prostate Had admission to [facility] with retention and elevated creatinine. Improved with Barakat catheter. 120 g prostate on prior imaging [facility] Medical History (Updated 08/02/25 @ 14:50 by Kremit Cuello MD) Hyperlipidemia Iron deficiency Hematuria Enlarged prostate Surgical History H/O colonoscopy (~12/17/22) Family History Mother No problems noted. Father No problems noted. Social History Household Members: Spouse Household Members Other:: patient not verbally responding so all info from Housing: House Do you presently have visiting nurse or other home services: No Comment: sitter for safety Patient Tobacco Use Status: Never used Tobacco e-Cigarette/Vaping Use: Never Used service: No Current occupational status: retired Cognitive needs: No Hearing needs: No Vision needs: Yes (rx glasses) Review of Systems Const Denies chills and Denies fever(s) Card Reports no additional complaints and Denies syncope Resp Denies cough GI Denies abdominal pain and Denies heartburn Reports as per HPI and Denies change in libido Neuro Denies syncope Psych Denies change in libido Endo Denies change in libido Physical Exam Const General: cooperative, healthy appearing, comfortable and no acute distress Orientation/consciousness: patient oriented x3 HEENT Face and sinus: Yes normal facial exam Mouth: moist mucous membranes Neck Neck: Yes normal visual inspection, Yes full ROM and Yes trachea midline Chest Chest palpation & inspection: normal inspection of the chest Resp Effort & Inspection: normal respiratory effort, able to speak in complete sentences and no respiratory distress GI Inspection: Yes normal to inspection Back/Spine/Pelvis Cervical Spine: normal cervical lordosis Thoracic/Lumbar Spine: thoracic and lumbar spine normal to inspection Skin General skin exam: no rashes or lesions noted Neuro General: patient oriented x3, gait normal, tone normal and moves all extremities Extrem General: Yes normal to inspection and Yes capillary refill normal Assessment & Plan Assessment & Plan (1) Bilateral nephrolithiasis: Code(s): N20.0 - Calculus of kidney Category: Medical Plan Ureteroscopy We discussed the nature of the decision and reasonable alternatives for performing ureteroscopy. Options such as medical therapy were discussed. Interventions include chemical dissolution, ESWL, ureteroscopy with laser lithotripsy and stent placement, PCNL. The relative uncertainties and benefits related to each alternate procedure were adequately discussed. General surgical risks including, but not limited to - pain, bleeding, infection, myocardial infarction, pulmonary embolus, deep vein thrombosis and cerebrovascular accident which may result in further hospitalization were discussed. Full disclosure of the procedure as well as all major risks, benefits and complications were discussed including but not limited to damage to the urethra, bladder and kidney infection, damage to the ureter, stent migration or malposition, scarring to the renal pelvis, remnant stone fragments, subsequent stone passage with need for secondary procedures. The overall secondary procedure rate is approximately 10-15%. The overall clearance rate is approximately 90-95%. Success of the procedure in the short-term does not necessarily guarantee that long-term success will be maintained. Suitable follow up will need to be maintained. The patient showed understanding of discussion and wishes to proceed with - cystoscopy, retrograde, ureteroscopy, possible lithotripsy/stone basketing and stent on the bilateral side Orders: Orders AMB Post Void Residual by ultrasound 07/30/25 N40.1 - Benign prostatic hyperplasia with lower urinary tract symptoms Medications: Refilled cefuroxime axetil 500 mg PO BID 10 tabs 0RF N39.0 - Urinary tract infection, site not specified Patient Instructions: This note is constructed using voice recognition software. While every effort has been made to ensure accuracy cyber security architect errors may have been included. Imaging studies, laboratory and physical exam results were discussed and reviewed in detail. No major barriers to patient understanding were identified. An opportunity to ask questions regarding the treatment plan was provided. All questions were answered. The patient expressed understanding and agreement with the above treatment plan. The patient is aware they should contact our office by phone for worsening of their current condition or the appearance of new urologic symptoms. Compliance is encouraged with any medications and followup testing that is ordered. It is a privilege to participate in the urologic care of your patient. If you have any questions or concerns regarding treatment for the above conditions, or other urologic issues, please do not hesitate to contact me. The office telephone contact is [phone]. Sincerely, Dr Fernando Haskins MD, [facility] - Urology Compassionate Specialist Care for the Genitourinary System Coding Level of Care Code Est Pt Level 4 (10045) Complex EM visit Add On G2211 Diagnoses Bilateral nephrolithiasis N20.0
--- OUTSIDE RECORDS SUMMARY | 2025-07-30 16:33 | XMS_ITS ---
Author Name [facility] Organization Unknown Care Team Organization Name Specialty Phone Email Start Date End Da te [facility] 07/31/2022 05/11/2024
--- OUTSIDE RECORDS SUMMARY | 2025-07-30 16:33 | XMS_ITS | Encounter Summary ---
Author Organization [facility] Address [address] [place] [address] [place] [address] Phone Care Team Providers Care Shearer Helper Name Role Phone Jonn Smith DO Primary Care Provider [phone] Bubba Wyman MD Primary Care Provider [phone] Jonn Smith DO Primary Care Provider [phone] Pcp, Unknown Primary Care Provider Unavailabl e Encounter Details Date Type Department Care Team (Late st Contact Info) Description 11/25/2017 Procedure Pass [facility], Ct Scan - [address] [address] Social History Tobacco Use Types Packs/Day Years [...] on filedocumented in this encounter Care Teams Shearer Helper Relationship Specialty Start Date End Date Jonn Smith DO [address] [facility] 7 [place] [address] [email or web address] PCP - General 09/26/17 12/08/17 Bubba Wyman MD [address] [facility] [address] [place] [address] [email or web address] PCP - General Family Medicine 12/09/17 07/12/19 Jonn Smith DO [address] [place] [address] 7 [place] [address] [email or web address] PCP - General Family Medicine 07/13/19 11/25/22 Pcp, Unknown PCP - General 11/26/22 documented as of this encounter Additional Source Comments The information contained in this document represents components of the legal health record. It is not the complete legal health record.[facility]
--- OUTSIDE RECORDS SUMMARY | 2025-07-30 16:33 | XMS_ITS | Clinical Summary ---
Author Organization [facility] Address [address] [place] [address] Phone Care Team Providers Care Product Planner Name Role Phone Pcp, Unknown Primary Care [...] PM EDT) HCV NON-REACTIV E NON-REACTI VE [facility] Blood 12/03/2019 2:16 PM EDT 12/03/2019 2:19 PM EDT Jonn Smith DO LAB BLOOD BKR ORDERABLES Final R esult Performing Organization Address City/[facility]/ZIP Co de Phone Number [address] [address] * Lipid panel (12/03/2019 2:16 PM EDT) HDL 47 mg/dL [facility] Comment: Interpretation <40 mg/dL: Low HDL cholesterol (major risk factor for CHD) Greater than or equal to 60 mg/dL: High HDL cholesterol ( negative risk factor for CHD) HDL - cholesterol is affected by a number of factors, e.g. smoking, excerise, hormones, sex and age. CHOLESTEROL 177 0 - 240 mg/dL [facility] TRIGLYCERIDES 99 30 - 160 mg/dL [facility] LDL 110 50 - 129 mg/dL [facility] Comment: LDL levels in terms of risk for coronary heart disease: <100 mg/dL: Optimal 100-129 mg/dL: Near or above optimal 130-159 mg/dL: Borderline high 160-189 mg/dL: High >190 mg/dL: Very High CARDIAC RISK RATIO 3.8 3.4 - 5.0 C [facility] Blood 12/03/2019 2:16 PM EDT 12/03/2019 2:19 PM EDT Jonn Smith DO LAB BLOOD BKR ORDERABLES Final R esult Performing Organization Address City/[facility]/ZIP Co de Phone Number [address] [address] from Last 3 Months or Most Recently Relevant to Health Maintenance Insurance AET[employer] PPO MEDICARE REPLAC[facility] AETNA [facility] MEDICARE REPLACEMENT AETNA O MEDICARE REPLACEMENT [facility] MEDICARE REPLACEMENT [facility] MEDICARE REPLACEMENT [facility] MEDICARE REPLACEMENT AETNA O MEDICARE REPLACEMENT AETNA O MEDICARE REPLACEMENT Care Teams Product Planner Relationship Specialty Start Date End Date Pcp, Unknown PCP - General 11/26/22 Additional Source Comments The information contained in this document represents components of the legal health record. It is not the complete legal health record.[facility]
--- OUTSIDE RECORDS SUMMARY | 2025-07-30 16:33 | XMS_ITS | Clinical Summary ---
Author Organization [facility] Address [address] [place] [address] Care Team Providers Care Parking Lot Chauffeur Name Role Phone Bubba Wyman MD Primary Care Provider [phone] Allergies No known active allergies Medications Medication [...] age to complete this topic Care Teams Parking Lot Chauffeur Relationship Specialty Start Date End Date Bubba Wyman MD [address] [place] [address] [place] [id number] PCP - General Family Medicine 01/17/18
--- OUTSIDE RECORDS SUMMARY | 2025-07-30 16:33 | XMS_ITS | Encounter Summary ---
Author Organization [facility] Address [address] [place] [address] Phone Care Team Providers Care Blowing Weasand Name Role Phone Jonn Smith DO Primary Care Provider [phone] Bubba Wyman MD Primary Care Provider [phone] Jonn Smith DO Primary Care Provider [phone] Pcp, Unknown Primary Care Provider Unavailabl e Encounter Details Date Type Department Care Team (Latest Contact Info) Description 11/12/2017 Transcribe Orders [address] [place] [address] [place] [address] [place] [address], [address] [place] [address] [email or web address] Encounter for screening for malignant neoplasm of [...] EST) PSA 5.17(H) 0 - 4.00 ng/mL [facility] Blood 11/12/2017 8:37 AM EST 11/12/2017 8:39 AM EST us Rip Burnham MD LAB BLOOD BKR ORDERABLES Final Result [facility] [address] [place] [address] documented in this encounter Visit Diagnoses Diagnosis Encounter for screening for malignant neoplasm of prostate- Primary documented in this encounter Care Teams Blowing Weasand Relationship Specialty Start Date End Date Jonn Smith DO [address] [place] [address], [facility] [address] [place] [address] [email or web address] PCP - General 09/26/17 12/08/17 Bubba Wyman MD [address] [place] [address], [facility] 7 [place] [address] [email or web address] PCP - General Family Medicine 12/09/17 07/12/19 Jonn Smith DO [address] [place] [address], [address] [place] [address] [email or web address] PCP - General Family Medicine 07/13/19 11/25/22 Pcp, Unknown PCP - General 11/26/22 documented as of this encounter Additional Source Comments The information contained in this document represents components of the legal health record. It is not the complete legal health record.[facility]
--- OUTSIDE RECORDS SUMMARY | 2025-07-30 16:33 | XMS_ITS | Encounter Summary ---
Author Organization [facility] Address [address] [place] [address] Phone Care Team Providers Care Husbandry Technician Name Role Phone Jonn Smith DO Primary Care Provider [phone] Bubba Wyman MD Primary Care Provider [phone] Jonn Smith DO Primary Care Provider [phone] Pcp, Unknown Primary Care Provider Unavailabl e Reason for Referral * MRI/CAT Scan - Closed Specialty Diagnoses / Procedures Referred By Lexy rdz Referred To Contact Radiology Diagnoses Simple renal cyst Procedures CT Abdomen Only (No Pelvis) Rip Burnham MD Phone: tel: fax: [email or web address] Referral ID Status Reason Start Date Expiration Date Visits Re quested Visits Authorized [id number] Closed 11/20/2017 01/18/2018 1 1 Encounter Details Date Type Department Care Team (Late st Contact Info) Description 11/25/2017 Ancillary Orders Virtual Department [address] [place] [address] Rip Burnham MD [address] [place] [address], [address] [place] [address] [email or web address] Simple renal cyst Social History Tobacco Use [...] kidney documented in this encounter Care Teams Husbandry Technician Relationship Specialty Start Date End Date Jonn Smith DO [address] [place] [address], [address] [place] [address] [email or web address] PCP - General 09/26/17 12/08/17 Bubba Wyman MD [address] [place] [address] [address] [place] [address] [email or web address] PCP - General Family Medicine 12/09/17 07/12/19 Jonn Smith DO [address] [place] [address] [address] [place] [address] [email or web address] PCP - General Family Medicine 07/13/19 11/25/22 Pcp, Unknown PCP - General 11/26/22 documented as of this encounter Additional Source Comments The information contained in this document represents components of the legal health record. It is not the complete legal health record.[facility]
--- OUTSIDE RECORDS SUMMARY | 2025-07-30 16:33 | XMS_ITS | Encounter Summary ---
Author Organization [facility] Address [address] [place] [address] Phone Care Team Providers Care Legal Analyst Name Role Phone Bubba Wyman MD Primary Care Provider [phone] Jonn Smith DO Primary Care Provider [phone] Pcp, Unknown Primary Care Provider Unavailabl e Reason for Referral * MRI/CAT Scan - Closed Specialty Diagnoses / Procedures Referred By Lexy rdz Referred To Contact Radiology Diagnoses Cyst of kidney, acquired Procedures CT Abdomen Only (No Pelvis) Rip Burnham MD Phone: tel: fax: [email or web address] Referral ID Status Reason Start Date Expiration Date Visits Re quested Visits Authorized [id number] Closed 12/26/2018 12/26/2019 1 1 Encounter Details Date Type Department Care Team (Latest Contact Info) Description 12/26/2018 Transcribe Orders Virtual Department [address] [place] [address] Rip Burnham MD [facility], [address] [place] [address] [email or web address] Cyst of kidney, acquired (Primary Dx) Social [...] kidney documented in this encounter Care Teams Legal Analyst Relationship Specialty Start Date End Date Bubba Wyman MD [email or web address] PCP - General Family Medicine 12/09/17 07/12/19 Jonn Smith DO [address] [place] [address], [address] [place] [address] [email or web address] PCP - General Family Medicine 07/13/19 11/25/22 Pcp, Unknown PCP - General 11/26/22 documented as of this encounter Additional Source Comments The information contained in this document represents components of the legal health record. It is not the complete legal health record.[facility]
--- OUTSIDE RECORDS SUMMARY | 2025-07-30 16:33 | XMS_ITS | Encounter Summary ---
Author Organization [facility] Address [address] [place] [address] Phone Care Team Providers Care Surgical Scrub Technologist Name Role Phone Jonn Smith DO Primary Care Provider [phone] Bubba Wyman MD Primary Care Provider [phone] Jonn Smith DO Primary Care Provider [phone] Pcp, Unknown Primary Care Provider Unavailabl e Encounter Details Date Type Department Care Team (Latest Contact Info) Description 11/20/2017 Transcribe Orders [address] [place] [address] Rip Burnham MD [address] [place] [address], [address] [place] [address] [email or web address] Renal cyst (Primary Dx) Social History Tobacco [...] EST) CREATININE 0.90 0.5 - 1.5 mg/dL [facility] EGFR >60 mL/min/1.7 3m2 [facility] Comment:Abnormal if <60. If patient is -Slovenian, multiply the result by 1.21. Blood 11/20/2017 8:24 AM EST 11/20/2017 8:26 AM EST us Rip Burnham MD LAB BLOOD BKR ORDERABLES Final Result Performing Organization Address City/[facility] Co de Phone Number [address] [address] * BUN (11/20/2017 8:24 AM EST) BUN 12 6 - 19 mg/dL [facility] Blood 11/20/2017 8:24 AM EST 11/20/2017 8:26 AM EST Rip Burnham MD LAB BLOOD BKR ORDERABLES Final Result Performing Organization Address [facility] de Phone Number [address] [address] documented in this encounter Visit Diagnoses Diagnosis Renal cyst- Primary Unspecified congenital cystic kidney disease documented in this encounter Care Teams Surgical Scrub Technologist Relationship Specialty Start Date End Date Jonn Smith DO [address] [address] [email or web address] PCP - General 09/26/17 12/08/17 Bubba Wyman MD [address] [place] [address] [email or web address] PCP - General Family Medicine 12/09/17 07/12/19 Jonn Smith DO [address] [address] [email or web address] PCP - General Family Medicine 07/13/19 11/25/22 Pcp, Unknown PCP - General 11/26/22 documented as of this encounter Additional Source Comments The information contained in this document represents components of the legal health record. It is not the complete legal health record.[facility]
== END 2025-07-30 16:25 | disposition home or self-care (01) ==
LOC: HO.HUSH 15:26
PROVIDERS: PCP Internal Medicine; Visit Provider Urology
DX: N20.0 Calculus of kidney (principal)
CPT/HCPCS: 99214; G2211

== ENCOUNTER → 2025-07-30 15:26 | Outpatient (BNVA) | payer MEDICARE, SELFPAY | PROVIDERS: PCP Internal Medicine; Visit Provider Urology | DX: N20.0 Calculus of kidney (principal); N40.1 Benign prostatic hyperplasia with lower urinary tract symptoms; R39.15 Urgency of urination; R35.1 Nocturia; R39.12 Poor urinary stream; R97.20 Elevated prostate specific antigen [PSA]; N39.0 Urinary tract infection, site not specified; Z98.890 Other specified postprocedural states | CPT/HCPCS: 99212 ==

== ENCOUNTER 2025-08-02 14:17 | Outpatient (AMB) | payer MEDICARE, SELFPAY ==
--- NOTE | 2025-08-02 14:28 | A.OFFPC_ITS ---
Vital Signs 08/02/25 14:29 Height 5 ft 6 in Weight 127 lb 6 oz BMI 20.6 BP 98/60 Blood Pressure Location Lt brachial Position Sitting Respiration 16 Pulse 63 Pulse Source Pulse Oximeter Temp 97.1 F Temp Source Temporal Artery Scan Pulse Oximetry (%) 99 Oxygen Delivery Method Room Air Intake Visit Reasons: routine Investment Advisor Required: No Accompanied by: Spouse Allergies pollen extracts Allergy (Verified 08/02/25 14:31) Unknown Tobacco use date assessed: 02/01/25 Fall risk assessment: No Falls in past year Last assessed Fall Risk: 08/02/25 Dental Screening Dental Screen Date: 02/01/25 Did you have a dental visit in the last 12 months?: Yes Did you have a dental problem in the last 6 months where you did not have access to dental care?: No Was dental information given to patient?: Patient has dentist HPI HPI Comments History of Present Illness Details The patient is a 79-year-old male presenting for evaluation of hematuria. He has been experiencing blood in his urine for over a week, and he notes that its intensity has increased from when it first started. He saw urology last Saturday but forgot to mention this symptom. On Saturday, after informing the urologist of the hematuria, an antibiotic was prescribed for a possible infection. He has not noticed any improvement in the hematuria after two days of taking the antibiotic. He denies any associated burning with urination, urinary frequency, flank pain, fever, or chills. His past medical history is notable for a blue light surgery last year followed by a urinary infection. He takes finasteride for his prostate. He denies any history of smoking or alcohol use. Review of labs from July 23 shows a stable hemoglobin, normal electrolytes, and normal serum iron levels at 105. His TIBC was low at 212, and he had previously been taking iron but is not currently taking it. Cholesterol results from January showed a total cholesterol of 196 and a high LDL of 129. Medical History: - Benign prostatic hyperplasia, treated with finasteride - History of urinary tract infection fol lowing surgery - Borderline iron deficiency - Hyperlipidemia Surgical History: - Blue light surgery last year Medications: - Unspecified antibiotic for possible ur inary tract infection, started on Saturday - Finasteride for prostate Family History: - Denies family history of bladder cance r or prostate cancer. Diagnostic Results: - Labs (July 23): - Hemoglobin: Stable - Chemistry Panel: Electrolytes are good . - Serum Iron: 105 (normal) - TIBC: 212 (low) - Labs (January): - Cholesterol: 196 - LDL Cholesterol: 129 (high) Social History: - Substance Use: Patient denies a histor y of smoking or alcohol use. COUNTS INCLUDE 234 BEDS AT [facility] Medical History (Updated 08/02/25 @ 14:50 by Kermit Cuello MD) Hyperlipidemia Iron deficiency Hematuria Enlarged prostate Surgical History H/O colonoscopy (~12/17/22) Family History Mother No problems noted. Father No problems noted. Social History Household Members: Spouse Household Members Other:: patient not verbally responding so all info from Housing: House Do you presently have visiting nurse or other home services: No Comment: sitter for safety Patient Tobacco Use Status: Never used Tobacco e-Cigarette/Vaping Use: Never Used service: No Current occupational status: retired Cognitive needs: No Hearing needs: No Vision needs: Yes (rx glasses) Questionnaire PHQ-9 Over the last 2 weeks, how often have you been bothered by any of the following problems? 1. Little interest or pleasure in doing things: not at all 2. Feeling down, depressed, or hopeless: not at all 3. Trouble falling or staying asleep, or sleeping too much: not at all 4. Feeling tired or having little energy: not at all 5. Poor appetite or overeating: not at all 6. Feeling bad about yourself - or that you are a failure or have let yourself or your family down: not at all 7. Trouble concentrating on things, such as reading the newspaper or watching television: not at all 8. Moving or speaking so slowly that other people could have noticed. Or the opposite - being so fidgety or restless that you have been moving around a lot more than usual: not at all 9. Thoughts that you would be better off or of hurting yourself in some way: not at all Total score: 0 Depression Screening Interpretation: Negative Depression Screening Done: Yes Source: Developed by Drs. Carlos Valenuzela, Claire Jefferson, Yo Phipps and colleagues, with an educational loulou from [employer]. Thrive Questionnaire Date Thrive assessed: 08/02/25 I am a: Patient What is your living situation today?: I have a steady place to live Within the past 12 months, did the food you bought not last and you didn't have the money to get more?: Never true Within the past 12 months, did you worry whether your food would run out before you got money to buy more?: Never true Do you have trouble paying for medicines?: No Do you have trouble getting transportation to medical appointments?: No Do you have trouble paying your heating and electricity bill?: No Do you have trouble taking care of your child, family member or friend?: No Do you have trouble with day-to-day activities such as bathing, preparing meals, shopping, managing finances, etc.?: No Are you currently unemployed and looking for a job?: No Are you interested in more education?: No THRIVE Score: 0 AUDIT C Alcohol Use Questionnaire (AUDIT-C) 1. How often do you have a drink containing alcohol?: Never 3. How often do you have six or more drinks on one occasion?: Never Total Score: 0 Score Reviewed/Action Taken: Yes JOHN-7 AMB Questionnaire JOHN-7 Date JOHN - 7 assessed: 08/02/25 Feeling nervous, anxious, or on edge: 0 = Not at all Not being able to stop or control worryin = Not at all Worrying too much about different things: 0 = Not at all Trouble relaxin = Not at all Being so restless that it is hard to sit still: 0 = Not at all Becoming easily annoyed or irritable: 0 = Not at all Feeling afraid as if something awful might happen: 0 = Not at all Total JOHN-7 score (0-4 normal; 5-9 mild; 10-14 moderate; 15-21 severe): 0 Source: Developed by Drs. Carlos Valenzuela, Claire Jefferson, Yo Phipps and colleagues, with an educational loulou from [employer]. Review of Systems Narrative - General: Reports feeling well overall. - Denies fever or chills. - Genitourinary: Reports hematuria for over one week, which has become stronger. - Denies dysuria, urinary frequency, or flank pain. - Psychiatric: Denies depression or anxiety, though notes feeling unwell over the past weekend due to the hematuria. All systems reviewed & are unremarkable except as reviewed in HPI and above Physical exam (Primary Care) Vital Signs: Last Vital Signs Temp 97.1 F 08/02/25 14:29 Pulse 63 08/02/25 14:29 Resp 16 08/02/25 14:29 BP 98/60 08/02/25 14:29 Pulse Ox 99 08/02/25 14:29 Oxygen Delivery Method Room Air 08/02/25 14:29 BMI result Body Mass Index 20.6 Tobacco/Smoking Status: Tobacco use Status Tobacco use date assessed 02/01/25 08/02/25 14:35 Patient Tobacco Use Status Never used Tobacco 08/02/25 14:35 e-Cigarette/Vaping Use Never Used 08/02/25 14:35 Depression Screening Interpretation: Negative Thrive Assessment: Date of Thrive Assessment Date Thrive assessed 02/01/25 08/02/25 14:35 Narrative General: Alert and oriented, Well nourished, No acute distress. Eye: Pupils are equal, round and reactive to light, Intact accommodation, Extraocular movements are intact, Normal conjunctiva, Vision unchanged. HENT: Normocephalic, Atraumatic, Tympanic membranes are clear, Normal hearing, Oral mucosa is moist, No pharyngeal erythema, Ear canals patent. Respiratory: Lungs CTA bilaterally, No wheeze, Respirations are non-labored. Cardiovascular: Regular rate, Regular rhythm, S1 auscultated, S2 auscultated, No murmur, Good pulses equal in all extremities, Normal peripheral perfusion, No edema. Gastrointestinal: Soft, Non-tender, Non-distended, Normal bowel sounds, No organomegaly. Musculoskeletal: Normal range of motion, Normal strength, No tenderness, No swelling, No deformity, Normal gait. Integumentary: Warm, Dry, [place], Intact. Neurologic: Alert, Oriented, Normal sensory, Normal motor function, No focal defects, Cranial Nerves II-XII are grossly intact, Normal deep tendon reflexes. Psychiatric: Cooperative, Appropriate mood & affect, Normal judgment, Slightly anxious due to recent health concerns. Coding Level of Care Code Est Pt Level 4 (74591) Complex EM visit Add On G2211 Diagnoses Gross hematuria R31.0 Hematuria type: gross Iron deficiency E61.1 Other hyperlipidemia E78.49 Hyperlipidemia type: other hyperlipidemia Assessment & Plan Assessment & Plan (1) Hematuria: Comment: - The patient is a 79-year-old male with worsening hematuria for over a week, which has not improved with a two-day course of antibiotics. - While this could be from an infection, the absence of other symptoms like dysuria and the persistence despite antibiotics is concerning for other causes, such as a bladder mass. - A urinalysis has been ordered for today. - The patient will continue his current antibiotic course. - It is strongly recommended that the patient contacts his urologist, Dr. Haskins, to schedule a cystoscopy as soon as possible for further evaluation. Code(s): R31.9 - Hematuria, unspecified Category: Medical Qualifiers: Hematuria type: gross Qualified Code(s): R31.0 - Gross hematuria (2) Iron deficiency: Comment: - Recent labs show borderline normal iron levels with a low TIBC. - The patient was advised to resume taking nbfr-rjy-oyxntha iron supplements. Code(s): E61.1 - Iron deficiency Category: Medical (3) Hyperlipidemia: Comment: - Cholesterol panel from January showed an elevated LDL of 129. - This will be monitored, and a discussion will be held at his next physical exam Code(s): E78.5 - Hyperlipidemia, unspecified Category: Medical Qualifiers: Hyperlipidemia type: other hyperlipidemia Qualified Code(s): E78.49 - Other hyperlipidemia Plan: Health Maintenance: - Discussed cancer screenings, which are up to date. - The patient is scheduled for a follow-up visit in six months for a physical examination. Patient was informed and verbally consented to the use of an ambient scribe for clinic note documentation during this visit. Plan I spoke with the patient and his family member about the concerning symptom of blood in the urine, which has been present for over a week and is worsening. I explained that while it could be an infection, we must investigate other causes, especially given his age and the lack of improvement with antibiotics. I have ordered a urine test for today and recommended he finish his current antibiotic course. I strongly advised him to contact his urologist, Dr. Haskins, to schedule a cystoscopy as soon as possible to ensure there are no masses or other serious issues in the bladder. We reviewed his recent bloodwork, noting his stable hemoglobin and borderline iron levels, and I advised him to resume taking an hixr-ikq-fginxki iron supplement. We also noted his elevated LDL from January, which we will address further at his next physical exam in six months. I reassured him that it's important not to worry but to be proactive with the urology follow-up. Orders: Orders UA CC w/rflx Micro + Cult Today N40.1 - Benign prostatic hyperplasia with lower urinary tract symptoms, R31.9 - Hematuria, unspecified Patient Instructions: - Please provide a urine sample today before you leave. - Finish the full course of the antibiotic that was prescribed for you. - It is very important that you call your urologist's office (Dr. Haskins) to schedule a cystoscopy (a procedure to look inside your bladder with a camera) as soon as possible. - You can start taking an dxzg-qjo-pedsyep iron supplement again. - We will see you back in our office in six months for a physical exam. - Please reach out to us if you have any questions or if the urology office gives you any issues with scheduling.
[2025-08-02 14:29] VITALS: BP 98/60; PULSE 63; RESP 16; TEMP 36.2; O2SAT 99; BMI 20.6
--- OUTSIDE RECORDS SUMMARY | 2025-08-02 16:39 | XMS_ITS | Encounter Summary ---
Author Organization [facility] Address [address] [place] [address] [place] [address] Phone Care Team Providers Care Assembler 1St Shift Name Role Phone Jonn Smith DO Primary Care Provider [phone] Bubba Wyman MD Primary Care Provider [phone] Jonn Smith DO Primary Care Provider [phone] Pcp, Unknown Primary Care Provider Unavailabl e Encounter Details Date Type Department Care Team (Late st Contact Info) Description 11/25/2017 Procedure Pass [facility], Ct Scan - [address] [address] Social History Tobacco Use Types Packs/Day Years [...] on filedocumented in this encounter Care Teams Assembler 1St Shift Relationship Specialty Start Date End Date Jonn Smith DO 234 [facility] 7 [place] [address] [email or web address] PCP - General 09/26/17 12/08/17 Bubba Wyman MD 234 [facility] 7 [place] [address] [email or web address] PCP - General Family Medicine 12/09/17 07/12/19 Jonn Smith DO [address] [place] [address] 7 [place] [address] [email or web address] PCP - General Family Medicine 07/13/19 11/25/22 Pcp, Unknown PCP - General 11/26/22 documented as of this encounter Additional Source Comments The information contained in this document represents components of the legal health record. It is not the complete legal health record.[facility]
--- OUTSIDE RECORDS SUMMARY | 2025-08-02 16:39 | XMS_ITS | Encounter Summary ---
Author Organization [facility] Address [address] [place] [address] Phone Care Team Providers Care Wig Dresser Name Role Phone Jonn Smith DO Primary Care Provider Bubba Wyman MD Primary Care Provider [phone] Jonn Smith DO Primary Care Provider [phone] Pcp, Unknown Primary Care Provider Unavailabl e Encounter Details Date Type Department Care Team (Latest Contact Info) Description 11/12/2017 Transcribe Orders [address] [place] [address] [place] [address] [place] [address], [address] [place] [address] [email or web address] Encounter for screening for [...] EST) PSA 5.17(H) 0 - 4.00 ng/mL [facility] Blood 11/12/2017 8:37 AM EST 11/12/2017 8:39 AM EST us Rip Burnham MD LAB BLOOD BKR ORDERABLES Final Result [facility] [address] [place] [address] documented in this encounter Visit Diagnoses Diagnosis Encounter for screening for malignant neoplasm of prostate- Primary documented in this encounter Care Teams Wig Dresser Relationship Specialty Start Date End Date Jonn Smith DO [address] [place] [address], [facility] [address] [place] [address] [email or web address] PCP - General 09/26/17 12/08/17 Bubba Wyman MD [address] [place] [address], [facility] 7 [place] [address] [email or web address] PCP - General Family Medicine 12/09/17 07/12/19 Jnon Smith DO [address] [place] [address], [address] [place] [address] [email or web address] PCP - General Family Medicine 07/13/19 11/25/22 Pcp, Unknown PCP - General 11/26/22 documented as of this encounter Additional Source Comments The information contained in this document represents components of the legal health record. It is not the complete legal health record.[facility]
--- OUTSIDE RECORDS SUMMARY | 2025-08-02 16:39 | XMS_ITS | Encounter Summary ---
Author Organization [facility] Address [address] [place] [address] Phone Care Team Providers Care Fisheries Director Name Role Phone Jonn Smith DO Primary Care Provider [phone] Bubba Wyman MD Primary Care Provider [phone] Jonn Smith DO Primary Care Provider [phone] Pcp, Unknown Primary Care Provider Unavailabl e Encounter Details Date Type Department Care Team (Latest Contact Info) Description 11/20/2017 Transcribe Orders [address] [place] [address] Rip Burnham MD [address] [place] [address], [address] [place] [address] [email or web address] Renal cyst (Primary Dx) Social History Tobacco [...] EST) CREATININE 0.90 0.5 - 1.5 mg/dL [facility] EGFR >60 mL/min/1.7 3m2 [facility] Comment:Abnormal if <60. If patient is -Greenlandic, multiply the result by 1.21. Blood 11/20/2017 8:24 AM EST 11/20/2017 8:26 AM EST us Rip Burnham MD LAB BLOOD BKR ORDERABLES Final Result Performing Organization Address City/[facility] Co de Phone Number [address] [address] * BUN (11/20/2017 8:24 AM EST) BUN 12 6 - 19 mg/dL [facility] Blood 11/20/2017 8:24 AM EST 11/20/2017 8:26 AM EST Rip Burnham MD LAB BLOOD BKR ORDERABLES Final Result Performing Organization Address [facility] de Phone Number [address] [address] documented in this encounter Visit Diagnoses Diagnosis Renal cyst- Primary Unspecified congenital cystic kidney disease documented in this encounter Care Teams Fisheries Director Relationship Specialty Start Date End Date Jonn Smith DO [address] [address] [email or web address] PCP - General 09/26/17 12/08/17 Bubba Wyman MD [address] [place] [address] [email or web address] PCP - General Family Medicine 12/09/17 07/12/19 Jonn Smith DO [address] [address] [email or web address] PCP - General Family Medicine 07/13/19 11/25/22 Pcp, Unknown PCP - General 11/26/22 documented as of this encounter Additional Source Comments The information contained in this document represents components of the legal health record. It is not the complete legal health record.[facility]
--- OUTSIDE RECORDS SUMMARY | 2025-08-02 16:39 | XMS_ITS | Clinical Summary ---
Author Organization [facility] Address [address] [place] [address] Phone Care Team Providers Care Visual Merchandise Manager Name Role Phone Pcp, Unknown Primary Care [...] PM EDT) HCV NON-REACTIV E NON-REACTI VE [facility] Blood 12/03/2019 2:16 PM EDT 12/03/2019 2:19 PM EDT Jonn Smith DO LAB BLOOD BKR ORDERABLES Final R esult Performing Organization Address City/[facility]/ZIP Co de Phone Number [address] [address] * Lipid panel (12/03/2019 2:16 PM EDT) HDL 47 mg/dL [facility] Comment: Interpretation <40 mg/dL: Low HDL cholesterol (major risk factor for CHD) Greater than or equal to 60 mg/dL: High HDL cholesterol ( negative risk factor for CHD) HDL - cholesterol is affected by a number of factors, e.g. smoking, excerise, hormones, sex and age. CHOLESTEROL 177 0 - 240 mg/dL [facility] TRIGLYCERIDES 99 30 - 160 mg/dL [facility] LDL 110 50 - 129 mg/dL [facility] Comment: LDL levels in terms of risk for coronary heart disease: <100 mg/dL: Optimal 100-129 mg/dL: Near or above optimal 130-159 mg/dL: Borderline high 160-189 mg/dL: High >190 mg/dL: Very High CARDIAC RISK RATIO 3.8 3.4 - 5.0 [facility] Blood 12/03/2019 2:16 PM EDT 12/03/2019 2:19 PM EDT Jonn Smith DO LAB BLOOD BKR ORDERABLES Final R esult Performing Organization Address City/[facility]/ZIP Co de Phone Number [address] [address] from Last 3 Months or Most Recently Relevant to Health Maintenance Insurance [employer] PPO MEDICARE REPLACEMENT [facility]PLACEMENT AETNA [facility] MEDICARE REPLACEMENT AETNA O MEDICARE REPLACEMENT [facility]IC[facility] MEDICARE REPLACEMENT AET[employer] O MEDICARE REPLACEMENT A[employer] O MEDICARE REPLACEMENT Care Teams Visual Merchandise Manager Relationship Specialty Start Date End Date Pcp, Unknown PCP - General 11/26/22 Additional Source Comments The information contained in this document represents components of the legal health record. It is not the complete legal health record.[facility]
--- OUTSIDE RECORDS SUMMARY | 2025-08-02 16:39 | XMS_ITS | Clinical Summary ---
Author Organization [facility] Address [address] [address] Phone Care Team Providers Care Special Delivery Messenger Name Role Phone Nikos Santamaria MD Primary Care Provider [phone] Allergies No known active allergies Medications Cyanocobalamin [...] Due Date Last Done Comments Influenza Vaccine (#1) 2025 4, 07/11/2012 Pneumococcal Vaccine: 50+ Years Completed 12/03/2019, 05/01/2013 Hepatitis B Vaccine Aged Out No longe r eligible based on patient's age to complete this topic Insurance [employer] Medicare Care Teams Special Delivery Messenger Relationship Specialty Start Date End Date Nikos Santamaria MD [address] [place] [address] [address] [place] PCP - General Internal Medicine 03/12/24
--- OUTSIDE RECORDS SUMMARY | 2025-08-02 16:39 | XMS_ITS | Clinical Summary ---
Author Organization [facility] Address [address] [place] [address] Care Team Providers Care Phlebotomist Medical Lab Assistant Name Role Phone Ethel Martinez MD Primary Care Provider [phone] Family History Relation Name Status Comments Father [...] age to complete this topic Care Teams Phlebotomist Medical Lab Assistant Relationship Specialty Start Date End Date Ethel Martinez MD PCP - General Internal Medicine 07/17/21
--- OUTSIDE RECORDS SUMMARY | 2025-08-02 16:39 | XMS_ITS | Encounter Summary ---
Author Organization [facility] Address [address] [place] [address] Phone Care Team Providers Care Vineyardist Name Role Phone Jonn Smith DO Primary Care Provider [phone] Bubba Wyman MD Primary Care Provider [phone] Jonn Smith DO Primary Care Provider [phone] Pcp, Unknown Primary Care Provider Unavailabl e Reason for Referral * MRI/CAT Scan - Closed Specialty Diagnoses / Procedures Referred By Lexy rdz Referred To Contact Radiology Diagnoses Simple renal cyst Procedures CT Abdomen Only (No Pelvis) Rip Burnham MD Phone: tel: fax: [email or web address] Referral ID Status Reason Start Date Expiration Date Visits Re quested Visits Authorized [id number] Closed 11/20/2017 01/18/2018 1 1 Encounter Details Date Type Department Care Team (Late st Contact Info) Description 11/25/2017 Ancillary Orders Virtual Department [address] [place] [address] Rip Burnham MD [address] [place] [address], [address] [place] [address] [email or web address] Simple renal cyst Social History Tobacco Use [...] kidney documented in this encounter Care Teams Vineyardist Relationship Specialty Start Date End Date Jonn Smith DO [address] [place] [address], [address] [place] [address] [email or web address] PCP - General 09/26/17 12/08/17 Bubba Wyman MD [address] [place] [address] [address] [place] [address] [email or web address] PCP - General Family Medicine 12/09/17 07/12/19 Jonn Smith DO [address] [place] [address] [address] [place] [address] [email or web address] PCP - General Family Medicine 07/13/19 11/25/22 Pcp, Unknown PCP - General 11/26/22 documented as of this encounter Additional Source Comments The information contained in this document represents components of the legal health record. It is not the complete legal health record.[facility]
--- OUTSIDE RECORDS SUMMARY | 2025-08-02 16:39 | XMS_ITS | Encounter Summary ---
Author Organization [facility] Address [address] [place] [address] Phone Care Team Providers Care Surface Plate Finisher Name Role Phone Bubba Wyman MD Primary Care Provider [phone] Jonn Smith DO Primary Care Provider [phone] Pcp, Unknown Primary Care Provider Unavailabl e Reason for Referral * MRI/CAT Scan - Closed Specialty Diagnoses / Procedures Referred By Lexy rdz Referred To Contact Radiology Diagnoses Cyst of kidney, acquired Procedures CT Abdomen Only (No Pelvis) Rip Burnham MD Phone: tel: fax: [email or web address] Referral ID Status Reason Start Date Expiration Date Visits Re quested Visits Authorized [id number] Closed 12/26/2018 12/26/2019 1 1 Encounter Details Date Type Department Care Team (Latest Contact Info) Description 12/26/2018 Transcribe Orders Virtual Department [address] [place] [address] Rip Burnham MD [facility], [address] [place] [address] [email or web address] Cyst of kidney, acquired (Primary Dx) Social [...] kidney documented in this encounter Care Teams Surface Plate Finisher Relationship Specialty Start Date End Date Bubba Wyman MD [email or web address] PCP - General Family Medicine 12/09/17 07/12/19 Jonn Smith DO [address] [place] [address], [address] [place] [address] [email or web address] PCP - General Family Medicine 07/13/19 11/25/22 Pcp, Unknown PCP - General 11/26/22 documented as of this encounter Additional Source Comments The information contained in this document represents components of the legal health record. It is not the complete legal health record.[facility]
== END 2025-08-02 14:49 | disposition home or self-care (01) ==
LOC: HO.HMCHD 14:18
PROVIDERS: PCP Internal Medicine; Visit Provider Student in an Organized Health Care Education/Training Program
DX: R31.0 Gross hematuria (principal); E61.1 Iron deficiency; E78.49 Other hyperlipidemia

== ENCOUNTER 2025-08-02 14:17 | Outpatient (REF) | payer MEDICARE, SELFPAY ==
[2025-08-02 17:20] LABS: Appearance Urine Hazy; Glucose Urine UA Negative (Negative); PH 6.5 (5.0-9.0); Specific Gravity - Urine 1.020 (1.005-1.025); UMIC TRIGGER UACC YES
[2025-08-02 17:42] LABS: UACC Culture Trigger YES
== END 2025-08-02 14:18 | disposition home or self-care (01) ==
LOC: HO.LAB 14:17
PROVIDERS: PCP Student in an Organized Health Care Education/Training Program; Visit Provider Student in an Organized Health Care Education/Training Program
DX: R31.0 Gross hematuria (principal); E61.1 Iron deficiency; E78.49 Other hyperlipidemia; N40.1 Benign prostatic hyperplasia with lower urinary tract symptoms; Z13.31 Encounter for screening for depression; Z13.39 Encounter for screening examination for other mental health and behavioral disorders
CPT/HCPCS: 81001; 87086; 96127; 99212

== ENCOUNTER 2025-08-13 15:06 | Outpatient (REF) | payer MEDICARE, SELFPAY ==
[2025-08-13 17:14] LABS: Appearance Urine Clear; Glucose Urine UA Negative (Negative); PH 5.0 (5.0-9.0); Specific Gravity - Urine 1.015 (1.005-1.025); UMIC TRIGGER UA YES
[2025-08-13 17:30] LABS: Other Crystals Urine Present
[2025-08-13 17:46] LABS: Microalbum/Creatinine Ratio Ur 20.5 ug/mg cr (<30)
== END 2025-08-13 15:07 | disposition home or self-care (01) ==
LOC: HO.LAB 15:06
PROVIDERS: PCP Internal Medicine; Visit Provider Internal Medicine Critical Care Medicine
DX: N13.30 Unspecified hydronephrosis (principal); E78.49 Other hyperlipidemia; R97.20 Elevated prostate specific antigen [PSA]
CPT/HCPCS: 81001; 82043; 82570; 99212

== ENCOUNTER 2025-08-13 15:06 | Outpatient (AMB) | payer MEDICARE, SELFPAY ==
--- NOTE | 2025-08-13 15:12 | HO.NEPHOV_ITS ---
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 here with his wakes up 1 or 2 times in the mi had some blood in urine earlier this month, received 5 days of antibiotics. He has large staghorn calculim, planned for a ureteroscopy [facility] Medical History (Updated 08/02/25 @ 14:50 by Kermit Cuello MD) Hyperlipidemia Iron deficiency Hematuria Enlarged prostate Surgical History H/O colonoscopy (~12/17/22) Family History Mother No problems noted. Father No problems noted. Social History Household Members: Spouse Household Members Other:: patient not verbally responding so all info from Housing: House Do you presently have visiting nurse or other home services: No Comment: sitter for safety Patient Tobacco Use Status: Never used Tobacco e-Cigarette/Vaping Use: Never Used service: No Current occupational status: retired Cognitive needs: No Hearing needs: No Vision needs: Yes (rx glasses) Review of Systems Const Details: Const : no body aches, no chills, no excessive sweating and no fatigue Eyes: no blurry vision and no change in vision ENT: no bleeding gums and no change in voice, no dizziness Card: no chest pain, no shortness of breath, no orthopnea, no PND Resp: no cough, no excessive phlegm production, no SOB GI: no abdominal pain and no nausea, no vomiting : no hematuria, no urinary frequency and no difficulty voiding Musc: no abnormal gait, no bone pain Neuro: no abnormal movements, no weakness, no dizziness, no abnormal gait and no behavioral changes Psych: no behavioral changes and no change in appetite Endo: no change in body appearance, no cold intolerance, no excessive sweating and no fatigue Physical Exam Vital Signs: Last Vital Signs Pulse 86 08/13/25 15:13 BP 120/60 08/13/25 15:13 Pulse Ox 96 08/13/25 15:13 Oxygen Delivery Method Room Air 08/13/25 15:13 BMI result Body Mass Index 20.7 General: Not in any acute distress, comfortable, sitting on the chair Nutritional Appearance: well nourished and overweight Eyes: appearance normal, both eyes and all related structures Neck: No lymphadenopathy, no thyromegaly Resp: bilateral air entry equal, no added sounds present Cardio: Regular rate, regular rhythm; S1 S2 normal, no edema GI: soft, nontender, no guarding, no hepatosplenomegaly : bladder normal to inspection, bladder normal to palpation, no renal angle tenderness Skin: no rashes or lesions noted and elasticity normal Neuro: oriented to person, oriented to place, oriented to time and moves all extremities Results Reviewed Nephrology Results: Hgb, (14.0-18.0) 14.1 g/dl 07/23/25 WBC, (4.8-10.8) 4.6 X10*3/uL L 07/23/25 Plt Count, (160-400) 226 X10*3/uL 07/23/25 Sodium, (135-145) 141 mmol/L 07/23/25 Potassium, (3.3-5.1) 4.3 mmol/L 07/23/25 Chloride, (96-108) 106 mmol/L 07/23/25 Carbon Dioxide, (22-29) 28 mmol/L 07/23/25 BUN, (9-16) 24 mg/dL H 07/23/25 Creatinine, (0.5-1.4) 1.37 mg/dL 07/23/25 Calcium, (8.4-10.2) 8.8 mg/dL 07/23/25 Urine Protein, (Neg-Trace) 300 (3+) mg/dL H 08/02/25 Renal US 05/12/24 Assessment & Plan Assessment & Plan (1) Hyperlipidemia: Comment: - Cholesterol panel from January showed an elevated LDL of 129. - This will be monitored, and a discussion will be held at his next physical exam Code(s): E78.5 - Hyperlipidemia, unspecified Category: Medical Qualifiers: Hyperlipidemia type: other hyperlipidemia Qualified Code(s): E78.49 - Other hyperlipidemia (2) Hydronephrosis: Code(s): N13.30 - Unspecified hydronephrosis Category: Medical (3) Elevated PSA: Code(s): R97.20 - Elevated prostate specific antigen [PSA] Category: Medical Plan BPH, obstructive uropathy: Creatinine down to 1.37 with GFR 52, electrolytes stable, no anemia. Has history of bilateral hydronephrosis with obstructive uropathy from BPH in the past PSA 5.83; following with urology; Continue finasteride. Voiding education given to the patient Encouraged adequate fluid intake at least 10 cups everyday Complex renal cyst: Bosniak 2F 6 cm cyst seen in upper pole of left kidney in the ultrasound and the CT scan, repeat CT scan in 07/17 demonstrating the same with size increasing to 4.8x 6.4cms several stones including a staghorn calculi noted in left kidney, nephrocalcinosis of right kidney. calcium 8.8, vitamin D 55.9, will get PTH with next set of labs. Patient is vegetarian eats mostly oxalate based food including green leaves, beans. Asked him to take yogurt with food, low salt diet, restricted animal protein diet. He is due for a ureteroscopic surgery, once we have the stool analysis I will call him with the diet plan. Will see him back in 6 months. Orders: Orders Parathyroid Hormone Intact Today N13.30 - Unspecified hydronephrosis, R97.20 - Elevated prostate specific antigen [PSA] Vitamin D 25-OH (D2 and D3) Today N13.30 - Unspecified hydronephrosis, R97.20 - Elevated prostate specific antigen [PSA] UA and rflx microscopic Today N13.30 - Unspecified hydronephrosis, R97.20 - Elevated prostate specific antigen [PSA] Basic Metabolic Panel 6 Months E78.49 - Other hyperlipidemia, N13.30 - Unspecified hydronephrosis, R97.20 - Elevated prostate specific antigen [PSA] UA and rflx microscopic 6 Months E78.49 - Other hyperlipidemia, N13.30 - Unspecified hydronephrosis, R97.20 - Elevated prostate specific antigen [PSA] IRON PROFILE 6 Months E78.49 - Other hyperlipidemia, N13.30 - Unspecified hydronephrosis, R97.20 - Elevated prostate specific antigen [PSA] Parathyroid Hormone Intact 6 Months E78.49 - Other hyperlipidemia, N13.30 - Unspecified hydronephrosis, R97.20 - Elevated prostate specific antigen [PSA] Vitamin D 25-OH Total 6 Months E78.49 - Other hyperlipidemia, N13.30 - Unspecified hydronephrosis, R97.20 - Elevated prostate specific antigen [PSA] Phosphorus 6 Months E78.49 - Other hyperlipidemia, N13.30 - Unspecified hydronephrosis, R97.20 - Elevated prostate specific antigen [PSA] Phosphorus Today N13.30 - Unspecified hydronephrosis, R97.20 - Elevated prostate specific antigen [PSA] Uric Acid Today N13.30 - Unspecified hydronephrosis, R97.20 - Elevated prostate specific antigen [PSA] Magnesium Today N13.30 - Unspecified hydronephrosis, R97.20 - Elevated prostate specific antigen [PSA] Microalbumin, Random (w Creat) Today N13.30 - Unspecified hydronephrosis, R97.20 - Elevated prostate specific antigen [PSA] Basic Metabolic Panel Today N13.30 - Unspecified hydronephrosis, R97.20 - Elevated prostate specific antigen [PSA] Microalbumin, Random (w Creat) 6 Months E78.49 - Other hyperlipidemia, N13.30 - Unspecified hydronephrosis, R97.20 - Elevated prostate specific antigen [PSA] Protein Creatinine Ratio, Ur 6 Months E78.49 - Other hyperlipidemia, N13.30 - Unspecified hydronephrosis, R97.20 - Elevated prostate specific antigen [PSA] Complete Blood Count no Diff 6 Months E78.49 - Other hyperlipidemia, N13.30 - Unspecified hydronephrosis, R97.20 - Elevated prostate specific antigen [PSA] Coding Level of Care Code Est Pt Level 4 (71698) Diagnoses Other hyperlipidemia E78.49 Hyperlipidemia type: other hyperlipidemia Hydronephrosis N13.30 Elevated PSA R97.20
[2025-08-13 15:13] VITALS: BP 120/60; PULSE 86; O2SAT 96; BMI 20.7
--- OUTSIDE RECORDS SUMMARY | 2025-08-13 15:14 | XMS_ITS | Encounter Summary ---
Author Organization [facility] Address [address] [place] [address] [place] [address] Phone Care Team Providers Care Examination Scorer Name Role Phone Jonn Smith DO Primary Care Provider [phone] Bubba Wyman MD Primary Care Provider [phone] oJnn Smith DO Primary Care Provider [phone] Pcp, Unknown Primary Care Provider Unavailabl e Encounter Details Date Type Department Care Team (Late st Contact Info) Description 11/25/2017 Procedure Pass [facility], Ct Scan - [address] [address] Social History Tobacco Use Types Packs/Day Years [...] on filedocumented in this encounter Care Teams Examination Scorer Relationship Specialty Start Date End Date Jonn Smith DO [address] [facility] [address] [place] [address] [email or web address] PCP - General 09/26/17 12/08/17 Bubba Wyman MD [address] [facility] 7 [place] [address] [email or web address] PCP - General Family Medicine 12/09/17 07/12/19 Jonn Smith DO [address] [place] [address] 7 [place] [address] [email or web address] PCP - General Family Medicine 07/13/19 11/25/22 Pcp, Unknown PCP - General 11/26/22 documented as of this encounter Additional Source Comments The information contained in this document represents components of the legal health record. It is not the complete legal health record.[facility]
--- OUTSIDE RECORDS SUMMARY | 2025-08-13 15:14 | XMS_ITS | Patient Health Record ---
Author Organization [facility] Address [address] [place] [address] Care Team Providers Care Pneumatic Tester Mechanic Name Role Phone Rosalio (RETIRED) Nikos MORILLO Primary Care Provide Carlos Roy [phone] Allergies Allergen (clinical drug ingredient) Drug/Non Drug Allergy documented on EMR Reaction Allergy Type Onset Date Status Pollen Pollen Unknown Allergy Active Reason For Referral No Information Medications Medication SIG (Take, Route, Frequency, Duration) Notes Start Date End Date Status Doxazosin Mesylate 4 MG Tablet Oral; Duration: 90 Uses rarely Active Finasteride 5 MG Tablet Oral; Duration: 90 Uses rarely Active Vitamin D (Cholecalciferol) 25 MCG (1000 UT) Capsule 1 capsule Orally Once a day; Duration: 30 day(s) Active Vitamin B 12 500 MCG Tablet 1 tablet Orally Once a day; Duration: 30 day(s) Active Immunizations Vaccine Route Administration Date Status Comme nts Influenza Unknown 06/26/2022 Administered Social History Tobacco Use: Social History Observation Description Date Details (start date - stop date) Never Smoker NA - NA Social History Drugs/Alcohol: Social Info Question Answer Notes Alcohol Screen Did you have a drink containing alcohol in the past year? Yes How often did you have a drink containing alcohol in the past year? Monthly or less (1 point) How many drinks did you have on a typical day when you were drinking in the past year? 1 or 2 drinks (0 point) How often did you have 6 or more drinks on one occasion in the past year? 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 Vegetarian Problems Problem Type SNOMED Code ICD Code Onset Dates Problem Status W/U Status Risk Notes Problem Colon cancer screening (074581861) Colon cancer screening (Z12.11) Active confirmed Problem History of adenomatous polyp of colon (129467392) History of adenomatous polyp of colon (Z86.010) Active confirmed Problem Diverticular disease of colon (399357690) Diverticulosis of large intestine without perforation or abscess without bleeding (K57.30) Active confirmed Problem Preprocedural examination (423098921179443) Preprocedural examination (Z01.818) Active confirmed Plan Of Treatment Future Test Test Name Order Date COLONOSCOPY 11/16/2022 Insurance Providers Payer Name Payer Address Payer Phone Subscriber Number Group Number Insured Name Patient Relationship to Insured Coverage Start Date Coverage End Date [facility] [address] [address] [place] [address] [id number] MICHAEL SCHNEIDER Self - patient is the insured Medical (General) History Medical History History ICD Code Enlarged prostate Colon polyps removed in 2003 in [place], [place]; he had 2 negative followup colonoscopies in 2006 and 2009 in [place],DM,CVA,Lung disease,renal dise ase Surgical History Surgery Date(Month/Year)
--- OUTSIDE RECORDS SUMMARY | 2025-08-13 15:14 | XMS_ITS | Clinical Summary ---
Author Organization [facility] Address [address] [place] [address] Care Team Providers Care Highway Maintenance Supervisor Name Role Phone Ethel Martinez MD Primary Care Provider [phone] Family History Relation Name Status Comments Father [...] age to complete this topic Care Teams Highway Maintenance Supervisor Relationship Specialty Start Date End Date Ethel Martinez MD PCP - General Internal Medicine 07/17/21
--- OUTSIDE RECORDS SUMMARY | 2025-08-13 15:14 | XMS_ITS | Clinical Summary ---
Author Organization [facility] Address [address] [address] Phone Care Team Providers Care Embossing Machine Tender Name Role Phone Nikos Santamaria MD Primary Care Provider [phone] Allergies No known active allergies Medications Cyanocobalamin [...] this topic Insurance [employer] Medicare Care Teams Embossing Machine Tender Relationship Specialty Start Date End Date Nikos Santamaria MD [address] [place] [address] [address] [place] PCP - General Internal Medicine 03/12/24
--- OUTSIDE RECORDS SUMMARY | 2025-08-13 15:14 | XMS_ITS | Encounter Summary ---
Author Organization [facility] Address [address] [place] [address] Phone Care Team Providers Care Farm Appraiser Name Role Phone Jonn Smith DO Primary Care Provider [phone] Bubba Wyman MD Primary Care Provider [phone] Jonn Smith DO Primary Care Provider [phone] Pcp, Unknown Primary Care Provider Unavailabl e Encounter Details Date Type Department Care Team (Latest Contact Info) Description 11/12/2017 Transcribe Orders [address] [place] [address] [place] [address] [place] [address], [address] [place] [address] [email or web address] Encounter for screening for malignant neoplasm of [...] EST) PSA 5.17(H) 0 - 4.00 ng/mL [facility] Blood 11/12/2017 8:37 AM EST 11/12/2017 8:39 AM EST us Rip Burnham MD LAB BLOOD BKR ORDERABLES Final Result [facility] [address] [place] [address] documented in this encounter Visit Diagnoses Diagnosis Encounter for screening for malignant neoplasm of prostate- Primary documented in this encounter Care Teams Farm Appraiser Relationship Specialty Start Date End Date Jonn Smith DO [address] [place] [address], [facility] [address] [place] [address] [email or web address] PCP - General 09/26/17 12/08/17 Bubba Wyman MD [address] [place] [address], [facility] [address] [place] [address] [email or web address] PCP - General Family Medicine 12/09/17 07/12/19 Jonn Smith DO [address] [place] [address], [address] [place] [address] [email or web address] PCP - General Family Medicine 07/13/19 11/25/22 Pcp, Unknown PCP - General 11/26/22 documented as of this encounter Additional Source Comments The information contained in this document represents components of the legal health record. It is not the complete legal health record.[facility]
--- OUTSIDE RECORDS SUMMARY | 2025-08-13 15:14 | XMS_ITS | Encounter Summary ---
Author Organization [facility] Address [address] [place] [address] Phone Care Team Providers Care Tool Grinder Operator Name Role Phone Jonn Smith DO Primary Care Provider [phone] Bubba Wyman MD Primary Care Provider [phone] Jonn Smith DO Primary Care Provider Pcp, Unknown Primary Care Provider Unavailabl e Encounter Details Date Type Department Care Team (Latest Contact Info) Description 11/20/2017 Transcribe Orders [address] [place] [address] Rip Burnham MD [address] [place] [address], [address] [place] [address] [email or web address] Renal cyst (Primary Dx) Social History Tobacco [...] EST) CREATININE 0.90 0.5 - 1.5 mg/dL [facility] EGFR >60 mL/min/1.7 3m2 [facility] Comment:Abnormal if <60. If patient is -[place] Islander, multiply the result by 1.21. Blood 11/20/2017 8:24 AM EST 11/20/2017 8:26 AM EST us Rip Burnham MD LAB BLOOD BKR ORDERABLES Final Result Performing Organization Address City/[facility] Co de Phone Number [address] [address] * BUN (11/20/2017 8:24 AM EST) BUN 12 6 - 19 mg/dL [facility] Blood 11/20/2017 8:24 AM EST 11/20/2017 8:26 AM EST Rip Burnham MD LAB BLOOD BKR ORDERABLES Final Result Performing Organization Address [facility] de Phone Number [address] [address] documented in this encounter Visit Diagnoses Diagnosis Renal cyst- Primary Unspecified congenital cystic kidney disease documented in this encounter Care Teams Tool Grinder Operator Relationship Specialty Start Date End Date Jonn Smith DO [address] [address] [email or web address] PCP - General 09/26/17 12/08/17 Bubba Wyman MD [address] [place] [address] [email or web address] PCP - General Family Medicine 12/09/17 07/12/19 Jonn Smith DO [address] [address] [email or web address] PCP - General Family Medicine 07/13/19 11/25/22 Pcp, Unknown PCP - General 11/26/22 documented as of this encounter Additional Source Comments The information contained in this document represents components of the legal health record. It is not the complete legal health record.[facility]
--- OUTSIDE RECORDS SUMMARY | 2025-08-13 15:14 | XMS_ITS | Clinical Summary ---
Author Organization [facility] Address [address] [place] [id number] Phone Care Team Providers Care Awning Hanger Helper Name Role Phone Pcp, Unknown Primary Care [...] PM EDT) HCV NON-REACTIV E NON-REACTI VE [facility] Blood 12/03/2019 2:16 PM EDT 12/03/2019 2:19 PM EDT Jonn Smith DO LAB BLOOD BKR ORDERABLES Final R esult Performing Organization Address City/[facility]/ZIP Co de Phone Number [address] [phone] * Lipid panel (12/03/2019 2:16 PM EDT) HDL 47 mg/dL [facility] Comment: Interpretation <40 mg/dL: Low HDL cholesterol (major risk factor for CHD) Greater than or equal to 60 mg/dL: High HDL cholesterol ( negative risk factor for CHD) HDL - cholesterol is affected by a number of factors, e.g. smoking, excerise, hormones, sex and age. CHOLESTEROL 177 0 - 240 mg/dL [facility] TRIGLYCERIDES 99 30 - 160 mg/dL [facility] LDL 110 50 - 129 mg/dL [facility] Comment: LDL levels in terms of risk for coronary heart disease: <100 mg/dL: Optimal 100-129 mg/dL: Near or above optimal 130-159 mg/dL: Borderline high 160-189 mg/dL: High >190 mg/dL: Very High CARDIAC RISK RATIO 3.8 3.4 - 5.0 C [facility] Blood 12/03/2019 2:16 PM EDT 12/03/2019 2:19 PM EDT Jonn Smith DO LAB BLOOD BKR ORDERABLES Final R esult Performing Organization Address City/[facility]/ZIP Co de Phone Number [address] [address] from Last 3 Months or Most Recently Relevant to Health Maintenance Insurance [employer] PPO [facility] RE[facility] AETNA [facility] MEDICARE REPLACEMENT AETNA O MEDICARE REPLACEMENT [facility] RE[id number] MEDICARE REPLACEMENT AETNA O MEDICARE REPLACEMENT AETNA O MEDICARE REPLACEMENT Care Teams Awning Hanger Helper Relationship Specialty Start Date End Date Pcp, Unknown PCP - General 11/26/22 Additional Source Comments The information contained in this document represents components of the legal health record. It is not the complete legal health record.[facility]
--- OUTSIDE RECORDS SUMMARY | 2025-08-13 15:14 | XMS_ITS | Clinical Summary ---
Author Organization [facility] Address [address] [place] [address] Care Team Providers Care Blind Installer Name Role Phone Bubba Wyman MD Primary Care Provider [phone] Allergies No known active allergies Medications Medication [...] age to complete this topic Care Teams Blind Installer Relationship Specialty Start Date End Date Bubba Wyman MD [address] [place] [address] [place] [id number] PCP - General Family Medicine 01/17/18
--- OUTSIDE RECORDS SUMMARY | 2025-08-13 15:14 | XMS_ITS | Encounter Summary ---
Author Organization [facility] Address [address] [place] [address] Phone Care Team Providers Care Truck Body Repairer Name Role Phone Jonn Smith DO Primary Care Provider [phone] Bubba Wyman MD Primary Care Provider [phone] Jonn Smith DO Primary Care Provider [phone] Pcp, Unknown Primary Care Provider Unavailabl e Reason for Referral * MRI/CAT Scan - Closed Specialty Diagnoses / Procedures Referred By Lexy rdz Referred To Contact Radiology Diagnoses Simple renal cyst Procedures CT Abdomen Only (No Pelvis) Rip Burnham MD Phone: tel: fax: mailto:[email or web address] Referral ID Status Reason Start Date Expiration Date Visits Re quested Visits Authorized [id number] Closed 11/20/2017 01/18/2018 1 1 Encounter Details Date Type Department Care Team (Late st Contact Info) Description 11/25/2017 Ancillary Orders Virtual Department [address] [place] [address] Rip Burnham MD [address] [place] [address], [address] [place] [address] [email or web address] renal cyst Social History Tobacco Use [...] kidney documented in this encounter Care Teams Truck Body Repairer Relationship Specialty Start Date End Date Jonn Smith DO [address] [place] [address], [address] [place] [address] [email or web address] PCP - General 09/26/17 12/08/17 Bubba Wyman MD [address] [place] [address] [address] [place] [address] PCP - General Family Medicine 12/09/17 07/12/19 Jonn Smith DO [address] [place] [address] [address] [place] [address] [email or web address] PCP - General Family Medicine 07/13/19 11/25/22 Pcp, Unknown PCP - General 11/26/22 documented as of this encounter Additional Source Comments The information contained in this document represents components of the legal health record. It is not the complete legal health record.[facility]
--- OUTSIDE RECORDS SUMMARY | 2025-08-13 15:14 | XMS_ITS | Encounter Summary ---
Author Organization [facility] Address [address] [place] [address] Phone Care Team Providers Care Freight Loading Supervisor Name Role Phone Bubba Wyman MD Primary Care Provider [phone] Jonn Smith DO Primary Care Provider [phone] Pcp, Unknown Primary Care Provider Unavailabl e Reason for Referral * MRI/CAT Scan - Closed Specialty Diagnoses / Procedures Referred By Lexy rdz Referred To Contact Radiology Diagnoses Cyst of kidney, acquired Procedures CT Abdomen Only (No Pelvis) Rip Burnham MD Phone: tel: fax: mailto:[email or web address] Referral ID Status Reason Start Date Expiration Date Visits Re quested Visits Authorized [id number] Closed 12/26/2018 12/26/2019 1 1 Encounter Details Date Type Department Care Team (Latest Contact Info) Description 12/26/2018 Transcribe Orders Virtual Department [address] [place] [address] Rip Burnham MD [facility], [address] [place] [address] [email or web address] Cyst of kidney, acquired (Primary Dx) Social [...] kidney documented in this encounter Care Teams Freight Loading Supervisor Relationship Specialty Start Date End Date Bubba Wyman MD [email or web address] PCP - General Family Medicine 12/09/17 07/12/19 Jonn Smith DO [address] [place] [address], [address] [place] [address] [email or web address] PCP - General Family Medicine 07/13/19 11/25/22 Pcp, Unknown PCP - General 11/26/22 documented as of this encounter Additional Source Comments The information contained in this document represents components of the legal health record. It is not the complete legal health record.[facility]
== END 2025-08-13 15:36 | disposition home or self-care (01) ==
LOC: HO.HKA 15:07
PROVIDERS: PCP Internal Medicine; Visit Provider Internal Medicine Critical Care Medicine
DX: E78.49 Other hyperlipidemia (principal); N13.30 Unspecified hydronephrosis; R97.20 Elevated prostate specific antigen [PSA]
CPT/HCPCS: 99214